=== PATIENT | female | born 1985 | race American Indian/Alaskan Native ===

== ENCOUNTER 2016-12-20 21:07 | Inpatient (IN) | payer OTHER ==
[2016-12-20] MEDS ORDERED: LACTATED RINGERS 500 ML IV ONE (21:10)
[2016-12-20] MEDS ORDERED: LACTATED RINGERS 1,000 ML ONE ×2 (21:22→23:49)
[2016-12-20] MEDS: BRETHINE SUB-Q SCH ×2 (22:30→22:58)
[2016-12-21] MEDS ORDERED: LACTATED RINGERS 1,000 ML ONE (06:39)
[2016-12-21] MEDS ORDERED: LACTATED RINGERS 1,000 ML IV SCH (07:00)
--- NOTE | 2016-12-21 07:47 | Ultrasound Report ---
BIOPHYSICAL PROFILE: History: well-being. Technique: Transabdominal ultrasound with Doppler interrogation. 2 - breathing movements 2 - movements 2 - posture and tone 2 - Qualitative amniotic fluid volume 8 - TOTAL SCORE OF POSSIBLE 8 Heart Rate (bpm) 152
--- NOTE | 2016-12-21 07:48 | Ultrasound Report ---
OB LIMITED History: well-being, evaluate amniotic fluid Technique: Transabdominal ultrasound with Doppler interrogation. Gestation: Single Amniotic Fluid: Normal GABY = 16.8 cm Heart Rate: 152 BPM
[2016-12-21] MEDS ORDERED: MAGNESIUM SULFATE 40GM/1000ML 40 GM/1,000 ML BAG IV ONE (10:27)
[2016-12-21] MEDS ORDERED: POLYCILLIN/NS 2 GM/100 ML 2 GM/100 ML BAG IV ONE ×2 (10:27→11:00)
[2016-12-21] MEDS ORDERED: MAGNESIUM SULFATE 4GM/100ML 4 GM/100 ML BAG IV ONE ×2 (10:27→11:00)
[2016-12-21] MEDS ORDERED: BICITRA ONE (10:38)
[2016-12-21] MEDS ORDERED: PITOCin/NS 20 UNIT/1000ML DRIP 20,000 MILLIUNITS/1,000 ML BAG IV ONE (10:38)
[2016-12-21] MEDS ORDERED: REGLAN ONE (10:38)
--- NOTE | 2016-12-21 10:38 | History and Physical Report ---
History of Present Illness Date of examination: 12/21/16 Date of admission: 12/20/16 23:52 Chief complaint: Painful contractions History of present illness: Assumed care of above. She is a 31-year-old at 31+3 weeks who presents with above complaints and issues, she is a [facility] patient. Patient with painful contractions since last night. Her fibronectin is positive and and cervical length is 0.35 cm She has Funic presentation Past History Past Medical History: no pertinent history Past Surgical History: no surgical history [employer] History: denies: chlamydia, gonorrhea, hepatitis B, hepatitis C, herpes, HIV , syphilis, trichomonas Social history: , full code. denies: smoking, alcohol abuse, prescription drug abuse, IV drug use - Obstetrical History Expected Date of Delivery: 12/21/16 Actual Gestation: 40 Week(s) 0 Day(s) : 1 Para: 0 Medications and Allergies Allergies Allergy/AdvReac Type Severity Reaction Status Date / Time No Known Allergies Allergy Unverified 12/20/16 21:10 Home Medications Medication Instructions Recorded Confirmed Last Taken Type Ibuprofen [Motrin 600 MG tab] 600 mg PO Q8H PRN #30 tablet 12/21/16 Unknown Rx Multivitamin with Iron 1 each PO DAILY #30 tablet 12/21/16 Unknown Rx [Multivitamins with Iron] oxyCODONE /ACETAMINOPHEN [Percocet 1 tab PO Q6HR PRN #30 tablet 12/21/16 Unknown Rx 5/325] Active Meds: Active Medications Acetaminophen (Tylenol) 650 mg PO Q4H PRN PRN Reason: Pain MILD(1-3)/Fever >100.5/ARANGO Betamethasone Acet/Betameth SodPhos (Celestone Soluspan) 12 mg IM Q24HR FELICITA Docusate Sodium (Colace) 100 mg PO Q12H PRN PRN Reason: Constipation Lactated Ringer's (Lactated Ringers) 1,000 mls @ 125 mls/hr IV DIRECT FELICITA Ampicillin Sodium (Polycillin/Ns 2 Gm/100 Ml) 100 mls @ 100 mls/hr IV ONCE ONE PRN Reason: Protocol Stop: 12/21/16 11:28 Ampicillin Sodium (Polycillin/Ns 1 Gm/50 Ml) 50 mls @ 100 mls/hr IV Q4HR FELICITA PRN Reason: Protocol Ondansetron HCl (Zofran) 4 mg IV Q6H PRN PRN Reason: Nausea And Vomiting Sodium Chloride (Sodium Chloride Flush Syringe 10 Ml) 10 ml IV PRN PRN PRN Reason: LINE FLUSH Terbutaline Sulfate (Brethine) 0.25 mg SUB-Q Q20MIN FELICITA Stop: 12/22/16 22:01 Last Admin: 12/20/16 22:58 Dose: 0.25 mg Review of Systems Constitutional: no fever, no chills Cardiovascular: no orthopnea, no edema, no syncope, no lightheadedness, no shortness of breath, no dyspnea on exertion Respiratory: no hemoptysis, no shortness of breath, no dyspnea on exertion Gastrointestinal: abdominal pain (ainful contractions) - Vital Signs Vital signs: Vital Signs Temp 98.0 F 12/20/16 21:30 Temp Pulse Resp BP Pulse Ox 97 F L 95 H 16 115/56 98 12/21/16 07:20 12/21/16 07:24 12/21/16 07:20 12/21/16 07:24 12/21/16 06:01 - Obstetrical Cervical Dilatation: 5 (Per RN exam) Results Result Diagrams: 12/21/16 10:30 All other labs normal. Assessment and Plan 31 y/o at 31 wks with funic presentation -5 cm dilated P: -Proceed to the OR now for emergency -Patient has been consented - Patient Problems (1) 31 weeks gestation of Current Visit: Yes Status: Acute (2) Funic presentation Current Visit: Yes Status: Acute Qualifiers: Fetus number: F (3) Active labor Current Visit: Yes Status: Acute
--- NOTE | 2016-12-21 10:38 | Admit Criteria Form ---
Admission Criteria Documentation: LABOR, THREATENED Clinical Indications for Admission to Inpatient Care (Place 'X' for any and all applicable criteria): Admission is indicated for ANY ONE of the following 1,2,3: [ ]I. Chorioamnionitis [ ]II. Significant vaginal bleeding or any vaginal bleeding with known placental previa or vasa previa 5,8 [ ]III. Serious maternal, infection or comorbidity (eg, pyelonephritis, pneumonia) as cause [ ]IV. Delivery [ ]V. distress or demise [ X]. labor and positive fibronectin(fFN) assay (9) [ ]VII. Condition requiring premature delivery (eg, premature rupture of membranes) 4,5 [ ]VIII. Inpatient admission required rather than observation care (Also use Labor, Threatened: Observation Care Criteria as appropriate) because of ANY ONE of the following: [ ]a) Continued monitoring that requires inpatient care [ ]b) Tocolytic therapy needed that requires inpatient care [ ]c) Complications of tocolytic treatment (eg, pulmonary edema, hypotension) that are severe or persistent (9) Extended stay beyond goal length of stay may be needed for (1)(2) [ ]a) Significant infection (eg, chorioamnionitis)(29) [ ]b) Continued uterine contractions [ ]c) demise [ ]d) Continued vaginal bleeding or placental abnormality [ ]e) Complications of tocolytic treatment (eg, pulmonary edema, hypotension)( 15) [ ]f) Multiple gestation(33) [ ]g) Other condition (eg, severe maternal disease, premature delivery) requiring continued inpatient care The original [employer] content created by [employer] has been revised. The portions of the content which have been revised are identified through the use of italic text or in bold, and [facility] has neither reviewed nor approved the modified material. All other unmodified content is copyright [employer] [facility]. Please see references footnoted in the original [employer] [facility] edition 2016 Admission Criteria Met: Yes
[2016-12-21] MEDS ORDERED: PEPCID IV ONE (10:39)
[2016-12-21] MEDS ORDERED: DIPRIVAN 10 MG/ML IV ONE (10:42)
[2016-12-21] MEDS ORDERED: QUELICIN ONE (10:42)
[2016-12-21] MEDS ORDERED: DILAUDID ONE ×2 (10:42→12:14)
[2016-12-21] MEDS ORDERED: TYLENOL PO PRN (11:00)
[2016-12-21] MEDS ORDERED: COLACE PO PRN (11:00)
[2016-12-21] MEDS ORDERED: CELESTONE SOLUSPAN IM SCH (11:00)
[2016-12-21] MEDS ORDERED: SODIUM CHLORIDE FLUSH SYRINGE 10 ML IV PRN ×2 (11:00→13:00)
[2016-12-21] MEDS ORDERED: ZOFRAN IV PRN (11:00)
[2016-12-21 11:02] LABS: Basophils % (Auto) 0.4 % (0.0-1.8); Eosinophils % (Auto) 1.3 % (0.0-4.3); Hematocrit 31.7 % (30.3-42.9); Mean Corpuscular HGB Conc 32 % (30-34); Mean Corpuscular Hemoglobin 25 pg (28-32); Mean Corpuscular Volume 78 fl (79-97); Platelet Count 226 K/mm3 (140-440); Red Blood Count 4.04 M/mm3 (3.65-5.03); Red Cell Distribution Width 14.6 % (13.2-15.2); White Blood Count 13.7 K/mm3 (4.5-11.0)
[2016-12-21] MEDS ORDERED: NACL 0.9% IR ONE (11:05)
[2016-12-21] MEDS ORDERED: ANCEF IV ONE (11:05)
[2016-12-21] MEDS ORDERED: WATER FOR IRRIG STERILE IR ONE (11:05)
[2016-12-21] MEDS ORDERED: ANCEF/STERILE WATER 2 GM/20 ML IV ONE (11:10)
[2016-12-21] MEDS ORDERED: NACL 0.9% 500 ML 500 ML IV ONE (11:16)
[2016-12-21] MEDS ORDERED: ZEMURON IV ONE (11:28)
[2016-12-21] MEDS ORDERED: ZOFRAN ONE (11:29)
[2016-12-21] MEDS ORDERED: MAGNESIUM SULFATE 40GM/1000ML 40 GM/1,000 ML BAG IV SCH (11:30)
[2016-12-21] MEDS ORDERED: BLOXIVERZ ONE (11:44)
[2016-12-21] MEDS ORDERED: ROBINUL ONE (11:44)
--- NOTE | 2016-12-21 12:11 | Operative Report ---
Operative Report Operative Report: DATE: 12/21/2016 PREOPERATIVE DIAGNOSIS: 31-year-old at 31+3 weeks gestation, Funic presentation, Active labor (5 cm dilated) POSTOP DIAGNOSIS: Same NAME OF PROCEDURE: Emergency Primary low transverse section SURGEON: LUIS ALBERTO PARKINSON MD FINAL [employer]IG[employer]OX EXAMINER: [] ANESTHESIA: General EBL: 800 mL PATHOLOGY SPECIMEN: Placenta URINE OUTPUT: 200 mL FINDINGS: Male infant in cephalic presentation, obvious loops of cord in front of presenting part covering the cervix, infant was 11:16 AM, weight was 4 lbs. 5 oz. or 1945 g, Apgars 8 and 9, normal uterus tubes and ovaries bilaterally DESCRIPTION OF PROCEDURE: After informed consent, patient was taken to the operating room where she was prepped and draped in a sterile fashion. Pfannestial incision was performed 2 cm above the pubic symphysis. This was then carried down to the underlying rectus fascia which was scored in the midline. The fascial incision was extended laterally with the use of Romano scissors, anterior and posterior leafs of the fascia were then grasped manually and dissected bluntly off the underlying rectus. The rectus was in the midline and the peritoneal cavity was entered without difficulty. After good visualization of the bladder the peritoneal layer was extended up and down ; bladder blade was placed in the patient's pelvic cavity. A hysterotomy incision was then performed with clear amniotic fluid noted. in cephalic presentation was delivered without difficulty in the usual manner; cord was clamped cut and was handed over to waiting NICU staff. The placenta was then delivered intact, the uterus was then exteriorized cleared of all clots and debris. Her hysterotomy incision was then closed in a running locked fashion with 0 Vicryl on a CTX; using the same suture were able to imbricate the initial layer. The uterus was then returned to the patient's pelvic cavity ; the peritoneal edges were grasped with hemostats and Susie's; irrigation was used to clear the gutters of all clots and debris. Tisseel hemostatic agent was applied copiously over the hysterotomy incision. The peritoneal layer was closed in a running fashion with 3-0 Vicryl; the rectus was reapproximated with a single [id number] stitch. The fascia was then closed in a running fashion with 0 Vicryl; the subcutaneous layer was reapproximated with a single [id number] stitch. The skin was then closed in a subcuticular manner with 4-0 Monocryl. She tolerated the procedure well lap and instrument counts were correct 2, she did receive 2 grams of Ancef prior to the procedure. She is transferred to PACU in stable condition.
[2016-12-21] MEDS ORDERED: NARCAN 0.4 MG/1 ML IV PRN ×2 (12:13)
[2016-12-21] MEDS ORDERED: MYLICON PO PRN (12:13)
[2016-12-21] MEDS ORDERED: ANUCORT-HC PR PRN (12:13)
[2016-12-21] MEDS ORDERED: MILK OF MAGNESIA PO PRN (12:13)
[2016-12-21] MEDS ORDERED: LANSINOH TP PRN (12:13)
[2016-12-21] MEDS ORDERED: DILAUDID IV PRN (12:26)
--- NOTE | 2016-12-21 12:26 | Anesthesia Day of Surgery ---
Anesthesia Day of Surgery - Day of Surgery Patient Examined: Yes Patient H&P Reviewed: Yes Patient is NPO: No
--- NOTE | 2016-12-21 12:28 | Post Anesthesia Evaluation ---
- Post Anesthesia Evaluation Patient Participated: Yes Airway Patent: Yes Stable Respiratory Function: Yes Nausea/Vomiting: No Temp > 96.8F: Yes Pain Manageable: Yes Adequeate Hydration: Yes Anesthesia Complications: No Block Receding Appropriately: Not Applicable Patient on Ventilator: No
--- NOTE | 2016-12-21 12:28 | Anesthesia Consultation ---
Anesthesia Consult and Med Hx - Airway Anesthetic Teeth Evaluation: Good ROM Head & Neck: Adequate Mental/Hyoid Distance: Adequate Mallampati Class: Class II Intubation Access Assessment: Probably Good - Pulmonary Exam CTA: Yes - Cardiac Exam Cardiac Exam: RRR - Pre-Operative Health Status Proposed Anesthetic Plan: General (cord presentation - urgent need for ) - Pulmonary Hx Asthma: No COPD: No Hx Pneumonia: No - Cardiovascular System Hx Hypertension: No - Central Nervous System Hx Seizures: No Hx Psychiatric Problems: No - Endocrine Hx Renal Disease: No Hx End Stage Renal Disease: No Hx Hypothyroidism: No Hx Hyperthyroidism: No - Hematic Hx Anemia: No Hx Sickle Cell Disease: No - Other Systems Hx Alcohol Use: No Hx Obesity: Yes
[2016-12-21] MEDS: MORPHINE PCA 30MG/30ML IV SCH ×2 (12:53→21:28)
[2016-12-21] MEDS ORDERED: TORADOL IV PRN (13:30)
[2016-12-21] MEDS ORDERED: PITOCin/NS 20 UNIT/1000ML DRIP 20 UNIT/1,000 ML BAG IV SCH ×2 (13:30→18:00)
[2016-12-21] MEDS ORDERED: TUCKS PAD TP PRN (13:30)
--- NOTE | 2016-12-21 13:46 | Ultrasound Report ---
ULTRASOUND OB LIMITED ULTRASOUND OB TRANSVAGINAL Technique: Transabdominal ultrasound with Doppler interrogation. Gestation: Single Position: Cephalic Heart Rate: 151 BPM Cervical length: 0.4 cm (Normal > 3 cm)
[2016-12-21] MEDS ORDERED: POLYCILLIN/NS 1 GM/50 ML 1 GM/50 ML BAG IV SCH (15:00)
[2016-12-21] MEDS ORDERED: D5LR 1,000 ML IV SCH (18:00)
[2016-12-21] MEDS ORDERED: FLUARIX QUAD 2016-2017(36 MOS+) IM ONE (18:07)
[2016-12-21] MEDS ORDERED: SENOKOT PO PRN (22:00)
[2016-12-22 02:00] LABS: Hematocrit 29.1 % (30.3-42.9); Hemoglobin 9.2 gm/dl (10.1-14.3)
[2016-12-22] MEDS ORDERED: BOOSTRIX IM ONE (06:00)
--- NOTE | 2016-12-22 08:26 | Progress Note ---
Assessment and Plan POD # 1 s/p Primary LTCS -Doing well P: -Continue routine postop care -Anticipate discharge in 24-48 hours - Patient Problems (1) Status post primary low transverse section Current Visit: Yes Status: Acute (2) 31 weeks gestation of Current Visit: Yes Status: Acute (3) Funic presentation Current Visit: Yes Status: Acute Qualifiers: Fetus number: F (4) Active labor Current Visit: Yes Status: Acute Subjective - Subjective Date of service: 12/22/16 Principal diagnosis: POD # 1, IUP at ~ 31 wks Interval history: Patient seen and examined, stable overnight no issues. She has adequate bowel bladder function, ambulating, pain appears well controlled, no fever or chills. Eager to go see baby in NICU Patient reports: appetite normal, voiding normally, pain well controlled, no dizzy ambulation, no nauseated [place]: in NICU Objective - Vital Signs Latest vital signs: Vital Signs Temp Pulse Pulse Resp BP BP Pulse Ox 12/22/16 06:13 18 12/22/16 04:30 99.3 F 97 H 20 110/56 12/22/16 04:10 18 12/22/16 02:05 18 12/22/16 00:40 99.4 F 97 H 20 110/59 12/21/16 23:58 18 12/21/16 22:10 18 12/21/16 20:40 99.3 F 86 20 115/60 12/21/16 20:16 18 12/21/16 18:34 18 12/21/16 16:35 18 12/21/16 14:50 98.5 F 84 20 134/72 12/21/16 13:53 20 12/21/16 13:14 79 22 117/65 94 12/21/16 12:55 87 20 137/84 95 12/21/16 12:40 98.8 F 77 24 134/75 97 12/21/16 12:25 69 20 132/75 97 12/21/16 12:20 71 20 132/69 95 12/21/16 12:15 98.6 F 80 20 123/62 92 12/21/16 10:57 94 H 100 12/21/16 10:52 109 H 100 Intake and Output 12/21/16 12/22/16 12/22/16 22:59 06:59 14:59 Intake Total 1281 990 Output Total 400 1100 Balance 881 -110 Intake: IV 921 750 D5lr 1,000 ml @ 125 mls/ 750 hr IV DIRECT FELICITA Rx#: [id number] PITOCin/NS 20 UNIT/1000ML 573 DRIP 20 unit In 1,000 ml @ 125 mls/hr IV DIRECT FELICITA Rx#:[id number] PITOCin/NS 20 UNIT/1000ML 348 DRIP 20 unit In 1,000 ml @ 250 mls/hr IV TITR FELICITA Rx#:[id number] Oral 360 240 Output: Urine 400 1100 Indwelling Catheter 1100 Void 400 Other: Total, Intake Amount 120 120 Total, Output Amount 400 600 - Exam Abdomen: Present: normal appearance, soft. Absent: tenderness, guarding, rigidity Uterus: Present: fundal height below umbilicus. Absent: tenderness Extremities: Present: normal Incision: Present: dressed - Labs Labs: Abnormal lab results 12/21/16 12/21/16 12/22/16 Range/Units 10:30 10:30 01:34 WBC 13.7 H (4.5-11.0) K/mm3 Hgb 10.0 L 9.2 L (10.1-14.3) gm/dl Hct 29.1 L (30.3-42.9) % MCV 78 L (79-97) fl MCH 25 L (28-32) pg Lymph % (Auto) 9.5 L (13.4-35.0) % Bennett % (Auto) 8.9 H (0.0-7.3) % Bennett # 1.2 H (0.0-0.8) K/mm3 Seg Neutrophils % 79.9 H (40.0-70.0) % Seg Neutrophils # 10.9 H (1.8-7.7) K/mm3 Crossmatch See Detail
[2016-12-22] MEDS: PERCOCET 5/325 PO PRN ×3 (08:58→23:32)
[2016-12-22] MEDS: MOTRIN PO PRN ×3 (08:58→23:33)
[2016-12-22] MEDS: PRENATAL VITAMIN PO SCH (10:08)
[2016-12-22] MEDS: FEOSOL PO SCH (10:08)
[2016-12-22] MEDS ORDERED: FLUARIX QUAD 2016-2017(36 MOS+) IM ONE (12:00)
[2016-12-22] MEDS ORDERED: M-M-R II VACCINE SUB-Q ONE (12:13)
--- NOTE | 2016-12-22 15:39 | Progress Note ---
Subjective Date of service: 12/22/16 Principal diagnosis: POD # 1, IUP at ~ 31 wks Interval history: Patient is s/p c/section under spinal, POD #1. Patient ambulating without difficulty. Pain well controlled. Patient denies anesthesia complications. Objective - Constitutional Vitals: Vital Signs - 12hr 12/22/16 12/22/16 12/22/16 04:10 04:30 06:13 Temperature 99.3 F Pulse Rate [ 97 H From Monitor] Respiratory 18 20 18 Rate Blood Pressure 110/56 [Right Arm] 12/22/16 12/22/16 12/22/16 07:50 09:00 09:31 Temperature 99 F Pulse Rate [ 96 H From Monitor] Respiratory 18 18 20 Rate Blood Pressure 128/83 [Right Arm] - Labs CBC & Chem 7: 12/22/16 01:34 Labs: Abnormal lab results 12/22/16 Range/Units 01:34 Hgb 9.2 L (10.1-14.3) gm/dl Hct 29.1 L (30.3-42.9) %
[2016-12-23] MEDS: PERCOCET 5/325 PO PRN ×3 (07:16→22:27)
[2016-12-23] MEDS: MOTRIN PO PRN ×3 (07:17→22:27)
--- NOTE | 2016-12-23 08:20 | Progress Note ---
Assessment and Plan POD # 2 s/p Primary LTCS -Doing well P: -Continue routine postop care -Anticipate discharge in 24-48 hours - Patient Problems (1) Status post primary low transverse section Current Visit: Yes Status: Acute (2) 31 weeks gestation of Current Visit: Yes Status: Acute (3) Funic presentation Current Visit: Yes Status: Acute Qualifiers: Fetus number: F (4) Active labor Current Visit: Yes Status: Acute Subjective - Subjective Date of service: 12/23/16 Principal diagnosis: POD # 2, IUP at ~ 31 wks Interval history: Patient seen and examined, stable. She has adequate bowel bladder function, ambulating, pain appears well controlled, no fever or chills. Patient reports: appetite normal, voiding normally, pain well controlled, flatus , bowel movement, ambulating normally, no dizzy ambulation Hydro: in NICU Objective - Vital Signs Latest vital signs: Vital Signs Temp Pulse Resp BP 12/23/16 07:17 18 12/23/16 07:16 18 12/23/16 00:35 98.9 F 75 20 116/60 12/22/16 23:33 18 12/22/16 23:32 18 12/22/16 15:43 98.3 F 90 20 110/59 12/22/16 09:31 99 F 96 H 20 128/83 12/22/16 09:00 18 Intake and Output 12/22/16 12/23/16 12/23/16 22:59 06:59 14:59 Intake Total 240 240 Output Total 1600 Balance -1360 240 Intake: Oral 240 240 Output: Urine 1600 Void 1600 Other: Total, Intake Amount 120 240 Total, Output Amount 900 # Voids Void 1 - Exam Abdomen: Present: normal appearance, soft. Absent: distention, tenderness, guarding, rigidity Uterus: Present: firm, fundal height below umbilicus Extremities: Present: normal Incision: Present: dry, intact
[2016-12-23] MEDS: FEOSOL PO SCH (09:23)
[2016-12-23] MEDS: PRENATAL VITAMIN PO SCH (09:23)
[2016-12-24] MEDS: MOTRIN PO PRN ×2 (05:39→12:19)
[2016-12-24] MEDS: PERCOCET 5/325 PO PRN ×2 (05:40→12:21)
--- NOTE | 2016-12-24 10:38 | Progress Note ---
Assessment and Plan - Patient Problems (1) Status post primary low transverse section Onset Date: 12/24/16 Current Visit: Yes Status: Resolved Plan to address problem: A: S/P LTCS - POD #3 Doing well P: May go home today Subjective - Subjective Date of service: 12/24/16 Principal diagnosis: POD #3 Interval history: Pt is feeling well except incisional pains. She is tolerating a reg diet without nausea or vomiting, ambulating and voiding without difficulty. Patient reports: appetite normal, voiding normally, pain well controlled, flatus , ambulating normally : doing well, in NICU Objective - Vital Signs Latest vital signs: Vital Signs Temp Pulse Resp BP 12/24/16 00:15 98.7 F 67 20 115/64 12/23/16 16:20 98.2 F 70 20 111/67 Intake and Output 12/23/16 12/24/16 12/24/16 22:59 06:59 14:59 Intake Total 480 360 Balance 480 360 Intake: Oral 240 Intake, Free Water 240 360 Other: Total, Intake Amount 240 # Voids Void 1 1 - Exam Breasts: Present: deferred Cardiovascular: Present: Regular rate Abdomen: Present: normal appearance, soft Uterus: Present: normal, firm, fundal height below umbilicus Extremities: Present: normal Incision: Present: normal, dry, intact
--- NOTE | 2016-12-24 12:21 | Discharge Summary ---
Providers - Providers Date of Admission: 12/20/16 23:52 Date of discharge: 12/24/16 Attending physician: YANY MELARA Primary care physician: YANY MELARA Hospitalization Reason for admission: active labor, IUP - Delivery: Procedure: section, primary low transverse Incision: normal, dry, intact Other procedures: none complications: none Discharge diagnosis: delivery baby: male Hospital course: Pt is a 31-year-old BF at 31+3 weeks who presented to [facility] with complaints of painful contractions. Her fibronectin is positive and cervical length was 0.35 cm and she was dilated 5cms. U/S showed a Funic presentation, thus she was scheduled for a C Section. She tolerated the procedure well, and post operative course was unremarkable. By POD #3 she was tolerating a reg diet without nausea or vomiting, ambulating and voiding without difficulty. She was therefore discharged to home on POD #3 in stable condition. Condition at discharge: Good Disposition: DISCHARGED TO HOME OR SELFCARE - Discharge Diagnoses (1) Status post primary low transverse section Status: Resolved Plan - Discharge Medications Prescriptions: Ibuprofen [Motrin 600 MG tab] 600 mg PO Q8H PRN #30 tablet PRN Reason: Pain Multivitamin with Iron [Multivitamins with Iron] 1 each PO DAILY #30 tablet oxyCODONE /ACETAMINOPHEN [Percocet 5/325] 1 tab PO Q6HR PRN #30 tablet PRN Reason: Pain - Provider Discharge Summary Activity: routine, no sex for 6 weeks, no heavy lifting 4 weeks, no strenuous exercise Diet: routine Instructions: routine Additional instructions: [] Smoking cessation referral if applicable(refer to patient education folder for contact #) [] Refer to [facility] Booklet Call your doctor immediately for: * Fever > 100.5 * Heavy vaginal bleeding ( >1 pad per hour) * Severe persistent headache * Shortness of breath * Reddened, hot, painful area to leg or breast * Drainage or odor from incision. * Keep incision clean and dry at all times and follow doctor's instructions regarding bathing/showering - Follow up plan Follow up: YANY MELARA MD [Primary Care Provider] - 14 Days
[2016-12-24] MEDS: FEOSOL PO SCH (12:25)
[2016-12-24] MEDS: PRENATAL VITAMIN PO SCH (12:25)
[2016-12-24] MEDS ORDERED: FLUARIX QUAD 2016-2017(36 MOS+) IM ONE (16:45)
[2016-12-24 19:42] VITALS: BP 109/66
== END 2016-12-24 17:00 | disposition home or self-care (01) | DRG 765 ==
LOC: TRG 21:07 → INTOOBSV 23:52 → LD 23:52 → OBSVTOIN 23:52 → TRG 23:52 → UNDOADMOB 23:52 → APU 12-21 11:14 → LD 12-21 11:14 → OB 12-21 14:29
PROVIDERS: ADMIT Obstetrics & Gynecology; ATTEND Obstetrics & Gynecology
PROC: 10D00Z1 Extraction of Products of Conception, Low, Open Approach (ICD-10-PCS; principal; 2016-12-21)
DX: O69.0XX0 Labor and delivery complicated by prolapse of cord, not applicable or unspecified (principal); O60.14X0 Preterm labor third trimester with preterm delivery third trimester, not applicable or unspecified; Z3A.31 31 weeks gestation of pregnancy; Z37.0 Single live birth; Z23 Encounter for immunization
CPT/HCPCS: 36415; 76815; 76817; 76819; 82731; 85014; 85018; 85025; 86850; 86900; 86901; 86920; 88307; 90471; 90686; 90715; 99211; A6250; C9250; G0008; G0463; J0290; J0330; J0690; J0702; J1170; J2270; J2405; J2590; J2704; J2710; J2765; J3105; J3475; J7120; J7121

== ENCOUNTER 2018-01-18 11:05 | Inpatient (IN) | payer MEDICAID, OTHER ==
[2018-01-18] MEDS ORDERED: NACL 0.9% 1000 ML IV ONE (12:53)
--- NOTE | 2018-01-18 13:23 | Ultrasound Report ---
OB ULTRASOUND History premature rupture of membranes. Technique: Transabdominal ultrasound with Doppler interrogation. Gestation: Single Position: Cephalic Amniotic Fluid: Normal GABY = 9.9 cm Placenta: Anterior Placental Grade: 0 Heart Rate: 159 BPM Cervical length: 2.3 cm (Normal > 3 cm) BPD: 5.4 cm = 22 w 3 d HC: 19.7 cm = 21 w 6 d AC: 18.5 cm = 23 w 2 d FL: 3.6 cm = 21 w 3 d HC/AC Ratio: 1.06 Cephalic Index: 33.9 Estimated Weight: 503 grams Clinical age = 23 w 1 d EDC: 05/16/18 US Gest. Age = 22 w 2 d EDC: 05/22/18 Comment: There appears to be a mild degree of fluid and the vaginal canal. IMPRESSION: Viable, single intrauterine as described.
[2018-01-18] MEDS ORDERED: NORMOSOL-R PH 7.4 1,000 ML IV ONE (13:35)
[2018-01-18] MEDS ORDERED: MAGNESIUM SULFATE 4GM/100ML 4 GM/100 ML BAG IV ONE ×2 (13:36→13:58)
[2018-01-18 13:52] LABS: Basophils # (Auto) 0.1 K/mm3 (0.0-0.1); Basophils % (Auto) 0.7 % (0.0-1.8); Eosinophils # (Auto) 0.2 K/mm3 (0.0-0.4); Hematocrit 35.7 % (30.3-42.9); Hemoglobin 11.7 gm/dl (10.1-14.3); Lymphocytes # (Auto) 1.4 K/mm3 (1.2-5.4); Lymphocytes % (Auto) 17.9 % (13.4-35.0); Mean Corpuscular HGB Conc 33 % (30-34); Mean Corpuscular Volume 78 fl (79-97); Monocytes # (Auto) 0.6 K/mm3 (0.0-0.8); Monocytes % (Auto) 7.2 % (0.0-7.3); Platelet Count 185 K/mm3 (140-440); Red Blood Count 4.58 M/mm3 (3.65-5.03); Red Cell Distribution Width 15.4 % (13.2-15.2)
[2018-01-18 13:54] LABS: Mean Corpuscular Hemoglobin 25 pg (28-32)
--- NOTE | 2018-01-18 14:14 | History and Physical Report ---
History of Present Illness Date of examination: 01/18/18 Date of admission: 01/18/18 11:05 Chief complaint: SROM History of present illness: Pt is a 32yo BF EDC 05/26/18; EGA 21 5/7 weeks presents to [facility] complaining of SROM clear fluid @ 1030. She denies bleeding or contractions. She received care at [facility] since 10 weeks, and course has been complicated by a previous delivery @ 31 weeks by C Section and Asthma for which she see's [facility]. records are available. Past History Past Medical History: asthma Past Surgical History: section Social history: no significant social history, - Obstetrical History Expected Date of Delivery: 05/26/18 Actual Gestation: 21 Week(s) 5 Day(s) : 2 Medications and Allergies Allergies Allergy/AdvReac Type Severity Reaction Status Date / Time No Known Allergies Allergy Verified 01/18/18 11:11 Home Medications Medication Instructions Recorded Confirmed Last Taken Type Ibuprofen [Motrin 600 MG tab] 600 mg PO Q8H PRN #30 tablet 12/21/16 Unknown Rx Multivitamin with Iron 1 each PO DAILY #30 tablet 12/21/16 Unknown Rx [Multivitamins with Iron] Vit-Fe Fumar-FA [ 1 tab PO QDAY 12/21/16 12/21/16 Unknown History Vitamin] oxyCODONE /ACETAMINOPHEN [Percocet 1 tab PO Q6HR PRN #30 tablet 12/21/16 Unknown Rx 5/325] Active Meds: Active Medications Magnesium Sulfate (Magnesium Sulfate 40gm/1000ml) 40 gm in 1,000 mls @ 50 mls/ hr IV DIRECT FELICITA Magnesium Sulfate (Magnesium Sulfate 4gm/100ml) 4 gm in 100 mls @ 300 mls/hr IV ONCE ONE Stop: 01/18/18 14:17 Review of Systems All systems: negative - Vital Signs Vital signs: Vital Signs Pulse BP Pulse Ox 100 H 122/68 98 01/18/18 11:16 01/18/18 11:16 01/18/18 11:16 Temp Pulse Resp BP Pulse Ox 98.2 F 100 H 18 122/68 98 01/18/18 11:30 01/18/18 11:16 01/18/18 11:30 01/18/18 11:16 01/18/18 11:16 - Physical Exam Breasts: Positive: deferred Cardiovascular: Regular rate Lungs: Positive: Clear to auscultation Abdomen: Positive: normal appearance, soft Genitourinary (Female): Positive: normal external genitalia Uterus: Positive: enlarged Extremities: Positive: normal - Obstetrical FHR: category 1 Uterine Contraction Monitor Mode: External Uterine Contraction Pattern: Absent Results Result Diagrams: 01/18/18 11:40 Abnormal lab results 01/18/18 Range/Units 11:40 MCV 78 L (79-97) fl MCH 25 L (28-32) pg RDW 15.4 H (13.2-15.2) % Seg Neutrophils % 72.2 H (40.0-70.0) % All other labs normal. Ultrasound: report reviewed (Andrew, cephalic, GABY 9.9cm, EFW 503gms; Cervical length 2.3cm, Gestational age 22 2/7 weeks) Assessment and Plan - Patient Problems (1) 21 weeks gestation of Onset Date: 01/18/18 Current Visit: Yes Status: Acute Plan to address problem: A: IUP @ 21 5/7 weeks PPROM - currently stable Previous C Section History of Previous delivery P: Admit to L&D for IV hydration, IV tocolysis, IV antibiotics Obtain [facility] consultation (2) premature rupture of membranes (PPROM) with onset of labor after 24 hours of rupture in second trimester, antepartum Onset Date: 01/18/18 Current Visit: Yes Status: Acute (3) Previous delivery affecting , antepartum Onset Date: 01/18/18 Current Visit: Yes Status: Acute
[2018-01-18] MEDS ORDERED: MYLICON PO PRN (14:27)
[2018-01-18] MEDS ORDERED: SENOKOT S PO PRN (14:27)
[2018-01-18] MEDS ORDERED: TYLENOL PO PRN (14:27)
[2018-01-18] MEDS ORDERED: MILK OF MAGNESIA PO PRN (14:27)
[2018-01-18] MEDS ORDERED: ZOFRAN IV PRN (14:27)
[2018-01-18] MEDS: MAGNESIUM SULFATE 40GM/1000ML 40 GM/1,000 ML BAG IV SCH (14:30)
[2018-01-18 15:00] LABS: Alanine Aminotransferase 13 units/L (7-56); Albumin 4.3 g/dL (3.9-5); BUN/Creatinine Ratio 18; Blood Urea Nitrogen 7 mg/dL (7-17); Calcium 9.1 mg/dL (8.4-10.2); Hemolysis Index 26
[2018-01-18] MEDS: POLYCILLIN/NS 2 GM/100 ML 2 GM/100 ML BAG IV SCH ×2 (15:00→21:26)
--- NOTE | 2018-01-18 17:53 | Consultation ---
History of Present Illness Consult date: 01/18/18 Requesting physician: YANY MELARA Reason for consult: PROM History of present illness: This is a 32 year old para 1011 at 22 weeks gestation (based on an SHANTELL of ) for whom I recently provided a perinatology consultation for evaluation of previable PPROM. CURRENT PRESENTATION: Patient states that she had fluid leakage earlier today at 10 AM. The patient indicates she DENIES episodes of vaginal bleeding or low abdominal pain but she continues to have leakage and vaginal discharge.. Patients last ultrasound at [facility] showed: 9 cm. Patient DENIES vaginal bleeding or discharge but does admit to intermittent leakage of fluid. PAST OBSTETRICAL HISTORY VTOP x 1 2017: CS at term. BW: 4 pounds 1 oz. FHR TRACING: Consistent EGA. No variable decelerations. ADMISSION LABS: See notes in chart. Past History Past Medical History: asthma Past Surgical History: section - Obstetrical History : 2 Medications and Allergies Allergies Allergy/AdvReac Type Severity Reaction Status Date / Time No Known Allergies Allergy Verified 01/18/18 11:11 Home Medications Medication Instructions Recorded Confirmed Last Taken Type Ibuprofen [Motrin 600 MG tab] 600 mg PO Q8H PRN #30 tablet 12/21/16 Unknown Rx Multivitamin with Iron 1 each PO DAILY #30 tablet 12/21/16 Unknown Rx [Multivitamins with Iron] Vit-Fe Fumar-FA [ 1 tab PO QDAY 12/21/16 12/21/16 Unknown History Vitamin] oxyCODONE /ACETAMINOPHEN [Percocet 1 tab PO Q6HR PRN #30 tablet 12/21/16 Unknown Rx 5/325] Active Meds: Active Medications Acetaminophen (Tylenol) 650 mg PO Q4H PRN PRN Reason: Pain MILD(1-3)/Fever >100.5/ARANGO Amoxicillin (Trimox) 250 mg PO Q8HR FELICITA; Protocol Stop: 01/25/18 14:28 Docusate Sodium (Colace) 100 mg PO Q12H PRN PRN Reason: Constipation Magnesium Sulfate (Magnesium Sulfate 40gm/1000ml) 40 gm in 1,000 mls @ 50 mls/ hr IV DIRECT FELICITA Last Admin: 01/18/18 14:30 Dose: 2 gm/hr, 50 mls/hr Ampicillin Sodium (Polycillin/Ns 2 Gm/100 Ml) 2 gm in 100 mls @ 100 mls/hr IV Q6HR FELICITA; Protocol Stop: 01/20/18 06:59 Last Admin: 01/18/18 15:00 Dose: 100 mls/hr Parenteral Electrolytes (Normosol-R Ph 7.4) 1,000 mls @ 125 mls/hr IV DIRECT FELICITA Magnesium Hydroxide (Milk Of Magnesia) 30 ml PO QHS PRN PRN Reason: Laxative Effect Multivitamins/Iron/Calcium ( Vitamin) 1 each PO QDAY FELICITA Ondansetron HCl (Zofran) 4 mg IV Q6H PRN PRN Reason: Nausea And Vomiting Senna/Docusate Sodium (Senokot S) 2 tab PO Q12H PRN PRN Reason: Laxative Effect Simethicone (Mylicon) 80 mg PO Q6H PRN PRN Reason: Gas pain - Vital Signs Vital signs: Vital Signs Pulse BP Pulse Ox 100 H 122/68 98 01/18/18 11:16 01/18/18 11:16 01/18/18 11:16 Temp Pulse Resp BP Pulse Ox 97.9 F 95 H 18 116/56 98 01/18/18 17:00 01/18/18 17:48 01/18/18 11:30 01/18/18 17:48 01/18/18 11:16 Results Result Diagrams: 01/18/18 11:40 01/18/18 11:40 Abnormal lab results 01/18/18 01/18/18 Range/Units 11:40 11:40 MCV 78 L (79-97) fl MCH 25 L (28-32) pg RDW 15.4 H (13.2-15.2) % Seg Neutrophils % 72.2 H (40.0-70.0) % Carbon Dioxide 19 L (22-30) mmol/L Creatinine 0.4 L (0.7-1.2) mg/dL All other labs normal. Assessment and Plan ASSESSMENT This is a 32 year old para 0111 at 22 weeks noted to have fluid leakage per vagina most likely due to PPROM. All of the aforementioned findings are suggestive of an impending periviable loss. Currently admitted for expectant management due to periviable PPROM. Normal residual AF on ultrasound Admitted for expectant management. RECOMMENDATIONS: During my discussion with the patient I had the opportunity to discuss the implications of PPROM, and oligohydramnios in early in . I explained that survival after delivery at or less than 23 weeks is limited, and that there is a high likelihood that this would develop chorioamnionitis, demise in utero or progress into labor and deliver well before the 23-24 weeks when meaningful viability is achieved. I also discussed the fact that morbidity and mortality with delivery between 24 to 26 weeks are high. I explained that if labor or clinical infections are present any time after initial evaluation of patients in this clinical scenario, then delivery is absolutely indicated. We generally do not recommend tocolysis in patients with PPROM prior to 24 weeks gestation since the risks of such an intervention outweigh any known benefits. For patients who do not show evidence of infection or labor, there are three options in the management of previable PPROM. These are OPTION 1: Nonintervention and Expectant management (conceivably as an outpatient if the patient desires) OPTION 2: Hospitalization, observation, steroids, tocolysis (as necessary) , antibiotics to prolong latency and aggressive surveillance (this protocol is most well described beyond 23 weeks gestation). OPTION 3: Termination of the . I also explained that for patients who choose expectant management that this is generally done in the hospital beyond the point of viability. PPROM managed as an outpatient entails a high risk for maternal infectious morbidity and demise in utero. RECOMMENDATIONS: 1. Following my counseling, this patient DECLINED the option of termination. 2. I have indicated that, in all likelihood, this patient may benefit from cerclage placement in future pregnancies. 3. We agree with steroids at 22 weeks gestation to enhance lung maturity. 4. We agree with magnesium sulfate for 24 hours for neuroprotection. 5. Repeat ultrasound in 48 hours to determine if residual GABY has changed. 6. At this point we would recommend ultrasound on a weekly basis with possible twice weekly at 28 weeks gestation. 7. FHR tracing q shift. 8. We will obtain ultrasound tomorrow. 9. We would be in agreement with delivery at 34 weeks or as clinically indicated for signs of intolerance of labor. 10. I have indicated that (given the poor outcome for survival) she may consider expectant management of an abnormal FHR tracing in the early part of expectant management. 11. We reviewed the statistics for survival in the articles attached. 12. Please obtain a neonatology consult to discuss periviable PPROM and pulmonary hypoplasia in this clinical scenario. Thank you for allowing us to participate in the care of this patient. We look forward to the opportunity to assist in her continued management. If you have any questions, I may be reached at [phone].
[2018-01-18] MEDS: NORMOSOL-R PH 7.4 1,000 ML IV SCH (21:29)
[2018-01-19] MEDS: NORMOSOL-R PH 7.4 1,000 ML IV SCH ×2 (00:35→17:46)
[2018-01-19] MEDS: AMBIEN PO PRN (01:18)
[2018-01-19] MEDS: POLYCILLIN/NS 2 GM/100 ML 2 GM/100 ML BAG IV SCH ×5 (03:17→23:43)
[2018-01-19 07:03] LABS: Bilirubin,Urine NEG (Negative); Blood,Urine SM (Negative); Color,Urine Yellow (Yellow); Mucus,Urine 1+ /HPF; Protein,Urine <15 mg/dL mg/dL (Negative); Urobilinogen,Urine < 2.0 mg/dL (<2.0)
--- NOTE | 2018-01-19 08:40 | Progress Note ---
Assessment and Plan - Patient Problems (1) 21 weeks gestation of Onset Date: 01/18/18 Current Visit: Yes Status: Acute Plan to address problem: A: IUP @ 21 6/7 weeks PPROM - currently stable Previous C Section History of Previous delivery P: Continue with present management - IV hydration, IV tocolysis, IV antibiotics Appreciate [facility] consultation Repeat GABY today NICU consultation (2) premature rupture of membranes (PPROM) with onset of labor after 24 hours of rupture in second trimester, antepartum Onset Date: 01/18/18 Current Visit: Yes Status: Acute (3) Previous delivery affecting , antepartum Onset Date: 01/18/18 Current Visit: Yes Status: Acute Subjective - Subjective Date of service: 01/19/18 Principal diagnosis: IUP @ 21 6/7 weeks; PPROM Interval history: Pt is a 32yo BF EDC 05/26/18; EGA 21 5/7 weeks presents to [facility] complaining of SROM clear fluid @ 1030 01/18/18. She denies bleeding or contractions. She received care at [facility] since 10 weeks, and course has been complicated by a previous delivery @ 31 weeks by C Section and Asthma for which she see's [facility]. records are available. She was admitted and begun on IV Magnesium sulfate, IM Steroids and IV antibiotics. Today she denies further leaking of fluid, contractions or bleeding. Patient reports: movement normal, no new complaints, no loss of fluid, no vaginal bleeding, no contractions Objective - Vital Signs Vital Signs: Vital Signs - 12hr 01/18/18 01/18/18 01/18/18 21:27 21:32 21:37 Temperature Pulse Rate 87 90 94 H Respiratory Rate Blood Pressure O2 Sat by Pulse 96 98 97 Oximetry 01/18/18 01/18/18 01/18/18 21:42 21:47 21:52 Temperature Pulse Rate 94 H 96 H 93 H Respiratory Rate Blood Pressure O2 Sat by Pulse 97 97 97 Oximetry 01/18/18 01/19/18 01/19/18 21:57 00:35 00:40 Temperature 97.1 F L Pulse Rate 98 H 88 Respiratory 20 Rate Blood Pressure 106/55 O2 Sat by Pulse 97 Oximetry 01/19/18 01/19/18 01/19/18 06:44 07:30 07:44 Temperature 97.6 F Pulse Rate 87 94 H Respiratory 16 Rate Blood Pressure 112/59 115/55 O2 Sat by Pulse Oximetry - Exam Cardiovascular: Regular rate Lungs: Clear to auscultation Abdomen: Present: normal appearance, soft FHR: auscultation normal Uterine Contraction Monitor Mode: External Uterine Contraction Pattern: Absent - Labs Labs: Abnormal Labs 01/18/18 01/18/18 01/18/18 11:40 11:40 20:19 MCV 78 L MCH 25 L RDW 15.4 H Seg Neutrophils % 72.2 H Carbon Dioxide 19 L Creatinine 0.4 L Magnesium 4.30 H 01/19/18 05:15 MCV MCH RDW Seg Neutrophils % Carbon Dioxide Creatinine Magnesium 4.70 H Laboratory Results - last 24 hr 01/18/18 01/18/18 01/18/18 11:40 11:40 11:40 WBC 8.1 RBC 4.58 Hgb 11.7 Hct 35.7 MCV 78 L MCH 25 L MCHC 33 RDW 15.4 H Plt Count 185 Lymph % (Auto) 17.9 Adams % (Auto) 7.2 Eos % (Auto) 2.0 Baso % (Auto) 0.7 Lymph # 1.4 Adams # 0.6 Eos # 0.2 Baso # 0.1 Seg Neutrophils % 72.2 H Seg Neutrophils # 5.8 Sodium 138 Potassium 4.1 Chloride 101.2 Carbon Dioxide 19 L Anion Gap 22 BUN 7 Creatinine 0.4 L Estimated GFR > 60 BUN/Creatinine Ratio 18 Glucose 88 Calcium 9.1 Magnesium Total Bilirubin 0.20 AST 16 ALT 13 Alkaline Phosphatase 49 Total Protein 6.7 Albumin 4.3 Albumin/Globulin Ratio 1.8 Urine Color Urine Turbidity Urine pH Ur Specific Austin Urine Protein Urine Glucose (UA) Urine Ketones Urine Blood Urine Nitrite Urine Bilirubin Urine Urobilinogen Ur Leukocyte Esterase Urine WBC (Auto) Urine RBC (Auto) Urine Mucus Blood Type O POSITIVE Antibody Screen Negative 01/18/18 01/19/18 01/19/18 20:19 05:15 Unknown WBC RBC Hgb Hct MCV MCH MCHC RDW Plt Count Lymph % (Auto) Adams % (Auto) Eos % (Auto) Baso % (Auto) Lymph # Adams # Eos # Baso # Seg Neutrophils % Seg Neutrophils # Sodium Potassium Chloride Carbon Dioxide Anion Gap BUN Creatinine Estimated GFR BUN/Creatinine Ratio Glucose Calcium Magnesium 4.30 H 4.70 H Total Bilirubin AST ALT Alkaline Phosphatase Total Protein Albumin Albumin/Globulin Ratio Urine Color Yellow Urine Turbidity Clear Urine pH 6.0 Ur Specific Austin 1.018 Urine Protein <15 mg/dl Urine Glucose (UA) Neg Urine Ketones Neg Urine Blood Sm Urine Nitrite Neg Urine Bilirubin Neg Urine Urobilinogen < 2.0 Ur Leukocyte Esterase Neg Urine WBC (Auto) 5.0 Urine RBC (Auto) 2.0 Urine Mucus 1+ Blood Type Antibody Screen
[2018-01-19] MEDS: PRENATAL VITAMIN PO SCH (09:14)
[2018-01-19] MEDS: COLACE PO PRN ×2 (09:14→20:47)
--- NOTE | 2018-01-19 10:15 | Ultrasound Report ---
ULTRASOUND OB LIMITED History: Oligohydramnios, followup GABY Technique: Transabdominal ultrasound with Doppler interrogation. Gestation: Single Position: Cephalic Amniotic Fluid: Decreased GABY = 5.3 cm. Decreased from 9.9 on yesterday's exam. Heart Rate: 138 BPM
[2018-01-19] MEDS: MAGNESIUM SULFATE 40GM/1000ML 40 GM/1,000 ML BAG IV SCH (12:05)
[2018-01-19] MEDS: CELESTONE SOLUSPAN IM SCH (15:15)
[2018-01-19] MEDS: ERY-TAB PO SCH ×2 (17:45→23:43)
[2018-01-20] MEDS: POLYCILLIN/NS 2 GM/100 ML 2 GM/100 ML BAG IV SCH (06:37)
[2018-01-20] MEDS: ERY-TAB PO SCH ×4 (06:37→23:28)
--- NOTE | 2018-01-20 08:43 | Consultation ---
History of Present Illness Reason for consult: other (Pt is a 32yo BF EDC 05/26/18; EGA 22.0 weeks [facility] complaining of SROM clear fluid @ 1030 01/18/18. She denies bleeding or contractions. She received care at [facility] since 10 weeks, and course has been complicated by a previous delivery @ 31 weeks by C Section and Asthma . Patient did NOT keep consult appointment with [facility] and had a rescheduled appointment on 01/20/18 records are available. She was admitted and begun on IV Magnesium sulfate, IM Steroids and IV antibiotics. Today she denied further leaking of fluid, contractions or bleeding. ) Past History Past Medical History: asthma Past Surgical History: section - Obstetrical History : 2 Medications and Allergies Allergies Allergy/AdvReac Type Severity Reaction Status Date / Time No Known Allergies Allergy Verified 01/18/18 11:11 Home Medications Medication Instructions Recorded Confirmed Last Taken Type Ibuprofen [Motrin 600 MG tab] 600 mg PO Q8H PRN #30 tablet 12/21/16 01/19/18 Unknown Rx Multivitamin with Iron 1 each PO DAILY #30 tablet 12/21/16 01/19/18 Unknown Rx [Multivitamins with Iron] Vit-Fe Fumar-FA [ 1 tab PO QDAY 12/21/16 01/19/18 Unknown History Vitamin] oxyCODONE /ACETAMINOPHEN [Percocet 1 tab PO Q6HR PRN #30 tablet 12/21/16 Unknown Rx 5/325] Active Meds: Active Medications Acetaminophen (Tylenol) 650 mg PO Q4H PRN PRN Reason: Pain MILD(1-3)/Fever >100.5/ARANGO Amoxicillin (Trimox) 250 mg PO Q8HR FELICITA; Protocol Stop: 01/25/18 14:28 Betamethasone Acet/Betameth SodPhos (Celestone Soluspan) 12 mg IM Q24HR FELICITA Stop: 01/20/18 10:01 Last Admin: 01/19/18 15:15 Dose: 12 mg Docusate Sodium (Colace) 100 mg PO Q12H PRN PRN Reason: Constipation Last Admin: 01/19/18 20:47 Dose: 100 mg Erythromycin (Wale-Tab) 250 mg PO Q6HR FELICITA Last Admin: 01/20/18 06:37 Dose: 250 mg Magnesium Sulfate (Magnesium Sulfate 40gm/1000ml) 40 gm in 1,000 mls @ 37.5 mls /hr IV DIRECT FELICITA Last Infusion: 01/19/18 15:38 Dose: 1.5 mls/hr Parenteral Electrolytes (Normosol-R Ph 7.4) 1,000 mls @ 125 mls/hr IV DIRECT FELICITA Last Admin: 01/19/18 17:46 Dose: 75 mls/hr Magnesium Hydroxide (Milk Of Magnesia) 30 ml PO QHS PRN PRN Reason: Laxative Effect Multivitamins/Iron/Calcium ( Vitamin) 1 each PO QDAY FELICITA Last Admin: 01/19/18 09:14 Dose: 1 each Senna/Docusate Sodium (Senokot S) 2 tab PO Q12H PRN PRN Reason: Laxative Effect Last Admin: 01/19/18 20:47 Dose: 2 tab Simethicone (Mylicon) 80 mg PO Q6H PRN PRN Reason: Gas pain Zolpidem Tartrate (Ambien) 10 mg PO QHS PRN PRN Reason: Insomnia Last Admin: 01/19/18 01:18 Dose: 10 mg Review of Systems Constitutional: no fever, no chills, no sweats Eyes: deferred Ears, nose, mouth and throat: deferred Cardiovascular: no palpitations, no rapid/irregular heart beat, no edema, no shortness of breath, no high blood pressure Respiratory: no shortness of breath, no wheezing Breasts: deferred Gastrointestinal: no abdominal pain, no nausea, no vomiting Genitourinary: other (Adequate urine out put via cath ), no vaginal bleeding, no vaginal discharge, no leakage of fluid (During consultation ), no pelvic pain Integumentary: no rash Neurological: no headaches Allergic/Immunologic: no wheezing - Vital Signs Vital signs: Vital Signs Pulse BP Pulse Ox 100 H 122/68 98 01/18/18 11:16 01/18/18 11:16 01/18/18 11:16 Temp Pulse Resp BP Pulse Ox 96.8 F L 78 18 100/53 96 01/20/18 04:22 01/20/18 08:37 01/20/18 04:22 01/20/18 08:37 01/20/18 04:22 - Physical Exam Breasts: Positive: deferred Cardiovascular: Regular rate Lungs: Positive: Normal air movement Abdomen: Negative: tenderness, guarding Uterus: Negative: tender Extremities: Negative: tenderness Deep Tendon Reflex Grade: Normal +2 - Obstetrical FHR: auscultation normal (per RN ) Uterine Contraction Monitor Mode: External Uterine Contraction Pattern: Absent Results Result Diagrams: 01/18/18 11:40 01/18/18 11:40 Abnormal lab results 01/19/18 01/19/18 01/19/18 Range/Units 11:12 17:23 23:17 Magnesium 5.00 H 4.90 H 4.40 H (1.7-2.3) mg/dL 01/20/18 Range/Units 06:14 Magnesium 4.30 H (1.7-2.3) mg/dL All other labs normal. Ultrasound: report reviewed (Prelim US from 01/19/18 SIUP VTX GABY of 5.3 cm + FHT of 138 bpm ) Assessment and Plan ASSESSMENT This is a 32 year old para 0111 at 22.0 weeks per SHANTELL of 05/26/18 Noted to have fluid leakage per vagina most likely due to PPROM. All of the aforementioned findings are suggestive of an impending periviable loss. Currently admitted for expectant management due to periviable PPROM. Last GABY of 5.3 cm ( decreased from GABY of 9.9 cm) 01/18/18 Shortened cervical length of 2.3 2017 History of C/S at 31 weeks Asthma clinically stable Maternal Obesity with BMI of 33 RECOMMENDATIONS: During my discussion with the patient I had the opportunity to discuss the implications of PPROM, and oligohydramnios in early in . I explained that survival after delivery at or less than 23 weeks is limited, and that there is a high likelihood that this would develop chorioamnionitis, demise in utero or progress into labor and deliver well before the 23-24 weeks when meaningful viability is achieved. I also discussed the fact that morbidity and mortality with delivery between 24 to 26 weeks are high. I explained that if labor or clinical infections are present any time after initial evaluation of patients in this clinical scenario, then delivery is absolutely indicated. We generally do not recommend tocolysis in patients with PPROM prior to 24 weeks gestation since the risks of such an intervention outweigh any known benefits. For patients who do not show evidence of infection or labor, there are three options in the management of previable PPROM. These are OPTION 1: Nonintervention and Expectant management (conceivably as an outpatient if the patient desires) OPTION 2: Hospitalization, observation, steroids, tocolysis (as necessary) , antibiotics to prolong latency and aggressive surveillance (this protocol is most well described beyond 23 weeks gestation). OPTION 3: Termination of the . I also explained that for patients who choose expectant management that this is generally done in the hospital beyond the point of viability. PPROM managed as an outpatient entails a high risk for maternal infectious morbidity and demise in utero. RECOMMENDATIONS: 1. This patient previousluy DECLINED the option of termination. 2. I have indicated that, in all likelihood, this patient may benefit from cerclage placement in future pregnancies. 3. We agree with steroids to enhance lung maturity. 4. We agree with magnesium sulfate for 24 hours for neuroprotection. 5. Repeat ultrasound in 48 hours to determine if residual GABY has changed. 6. At this point we would recommend ultrasound on a weekly basis with possible twice weekly at 28 weeks gestation. 7. FHR tracing q shift. 8. We will obtain ultrasound tomorrow. 9. We would be in agreement with delivery at 34 weeks or as clinically indicated for signs of intolerance of labor. 10. I have indicated that (given the poor outcome for survival) she may consider expectant management of an abnormal FHR tracing in the early part of expectant management. 11. We reviewed the statistics for survival in the articles attached. 12. Please obtain a neonatology consult to discuss periviable PPROM and pulmonary hypoplasia in this clinical scenario. 13. Obtain CBC with DIFF 14. NICU consult .
[2018-01-20] MEDS ORDERED: NACL 0.9% 1000 ML 0 ML ONE (10:02)
[2018-01-20] MEDS: PRENATAL VITAMIN PO SCH (10:05)
[2018-01-20] MEDS: NORMOSOL-R PH 7.4 1,000 ML IV SCH ×2 (10:09→21:54)
[2018-01-20] MEDS: MAGNESIUM SULFATE 40GM/1000ML 40 GM/1,000 ML BAG IV SCH (10:49)
--- NOTE | 2018-01-20 13:44 | Progress Note ---
Assessment and Plan - Patient Problems (1) 21 weeks gestation of Onset Date: 01/18/18 Current Visit: Yes Status: Acute Plan to address problem: A: IUP @ 22 0/7 weeks PPROM - currently stable Previous C Section History of Previous delivery P: Continue with present management - IV hydration, IV antibiotics Appreciate [facility] consultation Completed Steroids Will discontinue IV Magnesium sulfate tomorrow Repeat GABY tomorrow NICU consultation (2) premature rupture of membranes (PPROM) with onset of labor after 24 hours of rupture in second trimester, antepartum Onset Date: 01/18/18 Current Visit: Yes Status: Acute (3) Previous delivery affecting , antepartum Onset Date: 01/18/18 Current Visit: Yes Status: Acute Subjective - Subjective Date of service: 01/20/18 Principal diagnosis: IUP @ 22 0/7 weeks; PPROM Interval history: Pt is a 32yo BF EDC 05/26/18; EGA 22 0/7 weeks presents to [facility] complaining of SROM clear fluid @ 1030 01/18/18. She denied bleeding or contractions. She received care at [facility] since 10 weeks, and course has been complicated by a previous delivery @ 31 weeks by C Section and Asthma for which she see's [facility]. records are available. She was admitted and begun on IV Magnesium sulfate, IM Steroids and IV antibiotics. Today she denies further leaking of fluid, contractions or bleeding. Patient reports: movement normal, no new complaints, no loss of fluid, no vaginal bleeding, no contractions Objective - Vital Signs Vital Signs: Vital Signs - 12hr 01/20/18 01/20/18 01/20/18 04:22 08:37 08:44 Temperature 96.8 F L Pulse Rate 78 78 78 Respiratory 18 Rate Blood Pressure 104/59 100/53 88/44 O2 Sat by Pulse 96 Oximetry 01/20/18 01/20/18 01/20/18 09:44 10:44 11:45 Temperature Pulse Rate 78 80 93 H Respiratory Rate Blood Pressure 99/54 99/54 109/65 O2 Sat by Pulse Oximetry 01/20/18 12:51 Temperature Pulse Rate 96 H Respiratory Rate Blood Pressure 122/56 O2 Sat by Pulse Oximetry - Exam Cardiovascular: Regular rate Lungs: Clear to auscultation Abdomen: Present: normal appearance, soft FHR: auscultation normal Uterine Contraction Monitor Mode: External Uterine Contraction Pattern: Absent - Labs Labs: Abnormal Labs 01/18/18 01/18/18 01/18/18 11:40 11:40 20:19 MCV 78 L MCH 25 L RDW 15.4 H Seg Neutrophils % 72.2 H Carbon Dioxide 19 L Creatinine 0.4 L Magnesium 4.30 H 01/19/18 01/19/18 01/19/18 05:15 11:12 17:23 MCV MCH RDW Seg Neutrophils % Carbon Dioxide Creatinine Magnesium 4.70 H 5.00 H 4.90 H 01/19/18 01/20/18 23:17 06:14 MCV MCH RDW Seg Neutrophils % Carbon Dioxide Creatinine Magnesium 4.40 H 4.30 H Laboratory Results - last 24 hr 01/19/18 01/19/18 01/20/18 17:23 23:17 06:14 Magnesium 4.90 H 4.40 H 4.30 H - Results US- obstetric: report reviewed (GABY 5.3)
[2018-01-20] MEDS: CELESTONE SOLUSPAN IM SCH (16:00)
[2018-01-20] MEDS: TRIMOX PO SCH ×2 (16:18→23:28)
[2018-01-20] MEDS: AMBIEN PO PRN (23:29)
[2018-01-21] MEDS: ERY-TAB PO SCH ×4 (05:21→23:54)
[2018-01-21] MEDS: TRIMOX PO SCH ×3 (07:59→22:06)
--- NOTE | 2018-01-21 08:36 | Consultation ---
History of Present Illness Consult date: 01/21/18 Requesting physician: BERTHA COBB History of present illness: Now 22 1/7 weeks Denies ctx fevers chills Small amount of leakage Received steroids and currently on Mg (H/O PPROM in 2017 at 31 weeks and had C/S) ---- EFM Baseline 140's with occasional variable deced ( decel at around 5:30 am) Reviewed findings with patient Stable at this time --- Abdomen - NT no rebound or guarding ext NT no edema Past History Past Medical History: asthma Past Surgical History: section - Obstetrical History : 2 Medications and Allergies Allergies Allergy/AdvReac Type Severity Reaction Status Date / Time No Known Allergies Allergy Verified 01/18/18 11:11 Home Medications Medication Instructions Recorded Confirmed Last Taken Type Ibuprofen [Motrin 600 MG tab] 600 mg PO Q8H PRN #30 tablet 12/21/16 01/19/18 Unknown Rx Multivitamin with Iron 1 each PO DAILY #30 tablet 12/21/16 01/19/18 Unknown Rx [Multivitamins with Iron] Vit-Fe Fumar-FA [ 1 tab PO QDAY 12/21/16 01/19/18 Unknown History Vitamin] oxyCODONE /ACETAMINOPHEN [Percocet 1 tab PO Q6HR PRN #30 tablet 12/21/16 Unknown Rx 5/325] Active Meds: Active Medications Acetaminophen (Tylenol) 650 mg PO Q4H PRN PRN Reason: Pain MILD(1-3)/Fever >100.5/ARANGO Amoxicillin (Trimox) 250 mg PO Q8HR FELICITA; Protocol Stop: 01/25/18 14:28 Last Admin: 01/21/18 07:59 Dose: 250 mg Docusate Sodium (Colace) 100 mg PO Q12H PRN PRN Reason: Constipation Last Admin: 01/19/18 20:47 Dose: 100 mg Erythromycin (Wale-Tab) 250 mg PO Q6HR FELICITA Last Admin: 01/21/18 05:21 Dose: 250 mg Magnesium Sulfate (Magnesium Sulfate 40gm/1000ml) 40 gm in 1,000 mls @ 25 mls/ hr IV DIRECT FELICITA Last Admin: 01/20/18 10:49 Dose: 1.5 mls/hr Parenteral Electrolytes (Normosol-R Ph 7.4) 1,000 mls @ 125 mls/hr IV DIRECT FELICITA Last Admin: 01/20/18 21:54 Dose: 75 mls/hr Magnesium Hydroxide (Milk Of Magnesia) 30 ml PO QHS PRN PRN Reason: Laxative Effect Multivitamins/Iron/Calcium ( Vitamin) 1 each PO QDAY FELICITA Last Admin: 01/20/18 10:05 Dose: 1 each Senna/Docusate Sodium (Senokot S) 2 tab PO Q12H PRN PRN Reason: Laxative Effect Last Admin: 01/19/18 20:47 Dose: 2 tab Simethicone (Mylicon) 80 mg PO Q6H PRN PRN Reason: Gas pain Zolpidem Tartrate (Ambien) 10 mg PO QHS PRN PRN Reason: Insomnia Last Admin: 01/20/18 23:29 Dose: 10 mg - Vital Signs Vital signs: Vital Signs Pulse BP Pulse Ox 100 H 122/68 98 01/18/18 11:16 01/18/18 11:16 01/18/18 11:16 Temp Pulse Resp BP Pulse Ox 98.4 F 79 16 115/58 97 01/21/18 08:02 01/21/18 07:44 01/21/18 07:24 01/21/18 07:44 01/21/18 03:19 Results Result Diagrams: 01/18/18 11:40 01/18/18 11:40 Abnormal lab results 01/20/18 01/21/18 01/21/18 Range/Units 18:16 00:57 05:50 Magnesium 3.90 H 3.40 H 3.30 H (1.7-2.3) mg/dL All other labs normal. Assessment and Plan Assessment 1. Andrew IUP at 22 1/7 weeks 2. PPROM 3. Prior C/S at 31 weeks (PPROM) 4. Suspected Inc Cx 5. H/O Asthma Recommendations: 1. See Prior [facility] consult 2. US q week for Fluid and position 3. Delivery for S/S of chorio 4. NICU consult if not done 5. Once reaches viability would start EFM and if reassuring then q shift 6. DC Mg 7. Explained guarded prognosis due to PPROM 8. Antibiotics per protocol 9. US for EFW q 2 to 3 weeks 10. If reaches 26 weeks then BPP twice per week 11. Seq Leg comressors
[2018-01-21] MEDS: PRENATAL VITAMIN PO SCH (10:11)
[2018-01-21] MEDS: NORMOSOL-R PH 7.4 1,000 ML IV SCH ×2 (10:12→19:22)
[2018-01-21 10:27] LABS: Hematocrit 33.2 % (30.3-42.9); Hemoglobin 10.9 gm/dl (10.1-14.3); Mean Corpuscular HGB Conc 33 % (30-34); Mean Corpuscular Volume 78 fl (79-97); Platelet Count 203 K/mm3 (140-440); Red Blood Count 4.23 M/mm3 (3.65-5.03); Red Cell Distribution Width 15.5 % (13.2-15.2)
[2018-01-21 10:37] LABS: Mean Corpuscular Hemoglobin 26 pg (28-32)
--- NOTE | 2018-01-21 10:54 | Ultrasound Report ---
ULTRASOUND OB LIMITED History: Evaluate amniotic fluid Technique: Transabdominal ultrasound with Doppler interrogation. Gestation: Single Position: Cephalic Amniotic Fluid: Decreased GABY = 4.7 cm Heart Rate: 147 BPM
[2018-01-21 12:02] LABS: Anisocytosis 1+; Band Neutrophils # (Manual) 0.3 K/mm3; Basophils % (Manual) 0 % (0.0-1.8); Eosinophils % (Manual) 0 % (0.0-4.3); Ovalocytes 1+; Tear Drop Cells Few; Total Cells Counted 100
--- NOTE | 2018-01-21 15:15 | Progress Note ---
Assessment and Plan - Patient Problems (1) 21 weeks gestation of Onset Date: 01/18/18 Current Visit: Yes Status: Acute (2) premature rupture of membranes (PPROM) with onset of labor after 24 hours of rupture in second trimester, antepartum Onset Date: 01/18/18 Current Visit: Yes Status: Acute (3) Previous delivery affecting , antepartum Onset Date: 01/18/18 Current Visit: Yes Status: Acute (4) 22 weeks gestation of Onset Date: 01/21/18 Current Visit: Yes Status: Acute Plan to address problem: A: IUP @ 22 1/7 weeks PPROM - currently stable Previous C Section History of Previous delivery P: Continue with present management - IV hydration, IV antibiotics Appreciate [facility] consultation Completed Steroids Discontinued IV Magnesium sulfate NICU consultation Subjective - Subjective Date of service: 01/21/18 Principal diagnosis: IUP @ 22 1/7 weeks; PPROM Interval history: Pt is a 32yo BF EDC 05/26/18; EGA 22 1/7 weeks presented to [facility] complaining of SROM clear fluid @ 1030 01/18/18. She denied bleeding or contractions. She received care at [facility] since 10 weeks, and course has been complicated by a previous delivery @ 31 weeks by C Section and Asthma for which she see's [facility]. records are available. She was admitted and received IV Magnesium sulfate and IM Steroids, and currently on IV antibiotics. Today she denies further leaking of fluid, contractions or bleeding. Patient reports: movement normal, no new complaints, no loss of fluid, no vaginal bleeding, no contractions Objective - Vital Signs Vital Signs: Vital Signs - 12hr 01/21/18 01/21/18 01/21/18 03:18 03:19 03:44 Temperature 97.8 F Pulse Rate 80 83 81 Respiratory 20 Rate Blood Pressure 99/57 104/52 Blood Pressure 99/57 [Right] O2 Sat by Pulse 97 97 Oximetry 01/21/18 01/21/18 01/21/18 04:52 06:32 06:44 Temperature Pulse Rate 75 80 71 Respiratory Rate Blood Pressure 111/73 103/62 101/59 Blood Pressure [Right] O2 Sat by Pulse Oximetry 01/21/18 01/21/18 01/21/18 07:24 07:29 07:44 Temperature 97.9 F Pulse Rate 83 83 79 Respiratory 16 Rate Blood Pressure 98/53 115/58 Blood Pressure 98/53 [Right] O2 Sat by Pulse Oximetry 01/21/18 01/21/18 01/21/18 08:02 08:44 10:10 Temperature 98.4 F 98.2 F Pulse Rate 85 82 Respiratory 16 Rate Blood Pressure 114/62 Blood Pressure 117/56 [Right] O2 Sat by Pulse 99 Oximetry 01/21/18 01/21/18 01/21/18 10:12 10:14 10:17 Temperature Pulse Rate 81 82 90 Respiratory Rate Blood Pressure 117/56 Blood Pressure [Right] O2 Sat by Pulse 99 98 Oximetry 01/21/18 01/21/18 01/21/18 11:42 11:44 11:45 Temperature 98 F Pulse Rate 87 86 83 Respiratory 20 Rate Blood Pressure 111/55 Blood Pressure 111/55 [Right] O2 Sat by Pulse 97 98 Oximetry 01/21/18 01/21/18 01/21/18 11:49 11:54 11:59 Temperature Pulse Rate 90 92 H 88 Respiratory Rate Blood Pressure Blood Pressure [Right] O2 Sat by Pulse 98 98 98 Oximetry 01/21/18 01/21/18 01/21/18 12:04 12:09 12:14 Temperature Pulse Rate 87 86 97 H Respiratory Rate Blood Pressure Blood Pressure [Right] O2 Sat by Pulse 98 96 97 Oximetry 01/21/18 01/21/18 12:19 13:39 Temperature 97.8 F Pulse Rate 84 Respiratory Rate Blood Pressure Blood Pressure [Right] O2 Sat by Pulse 98 Oximetry - Exam Abdomen: Present: normal appearance, soft Uterine Contraction Pattern: Absent - Labs Labs: Abnormal Labs 01/18/18 01/18/18 01/18/18 11:40 11:40 20:19 WBC MCV 78 L MCH 25 L RDW 15.4 H Seg Neutrophils % 72.2 H Seg Neuts % (Manual) Lymphocytes % (Manual) Seg Neutrophils # Man Carbon Dioxide 19 L Creatinine 0.4 L Magnesium 4.30 H 01/19/18 01/19/18 01/19/18 05:15 11:12 17:23 WBC MCV MCH RDW Seg Neutrophils % Seg Neuts % (Manual) Lymphocytes % (Manual) Seg Neutrophils # Man Carbon Dioxide Creatinine Magnesium 4.70 H 5.00 H 4.90 H 01/19/18 01/20/1818 23:17 06:14 18:16 WBC MCV MCH RDW Seg Neutrophils % Seg Neuts % (Manual) Lymphocytes % (Manual) Seg Neutrophils # Man Carbon Dioxide Creatinine Magnesium 4.40 H 4.30 H 3.90 H 01/21/18 01/21/18 01/21/18 00:57 05:50 10:11 WBC 13.8 H MCV 78 L MCH 26 L RDW 15.5 H Seg Neutrophils % Seg Neuts % (Manual) 83.0 H Lymphocytes % (Manual) 11.0 L Seg Neutrophils # Man 11.5 H Carbon Dioxide Creatinine Magnesium 3.40 H 3.30 H Laboratory Results - last 24 hr 01/20/18 01/21/18 01/21/18 18:16 00:57 05:50 WBC RBC Hgb Hct MCV MCH MCHC RDW Plt Count Add Manual Diff Total Counted Seg Neuts % (Manual) Band Neutrophils % Lymphocytes % (Manual) Reactive Lymphs % (Man) Monocytes % (Manual) Eosinophils % (Manual) Basophils % (Manual) Metamyelocytes % Myelocytes % Promyelocytes % Blast Cells % Nucleated RBC % Seg Neutrophils # Man Band Neutrophils # Lymphocytes # (Manual) Abs React Lymphs (Man) Monocytes # (Manual) Eosinophils # (Manual) Basophils # (Manual) Metamyelocytes # Myelocytes # Promyelocytes # Blast Cells # WBC Morphology Hypersegmented Neuts Hyposegmented Neuts Hypogranular Neuts Smudge Cells Toxic Granulation Toxic Vacuolation Dohle Bodies Pelger-Huet Anomaly Vincent Rods Platelet Estimate Clumped Platelets Plt Clumps, EDTA Large Platelets Giant Platelets Platelet Satelliting Plt Morphology Comment RBC Morphology Dimorphic RBCs Polychromasia Hypochromasia Poikilocytosis Anisocytosis Microcytosis Macrocytosis Spherocytes Pappenheimer Bodies Sickle Cells Target Cells Tear Drop Cells Ovalocytes Helmet Cells Mcguire-[place] Bodies [place] Rings [place] Cells Bite Cells Crenated Cell Elliptocytes Acanthocytes (Spur) Rouleaux Hemoglobin C Crystals Schistocytes Malaria parasites Carlos Alberto Bodies Hem Pathologist Commnt Magnesium 3.90 H 3.40 H 3.30 H 01/21/18 10:11 WBC 13.8 H RBC 4.23 Hgb 10.9 Hct 33.2 MCV 78 L MCH 26 L MCHC 33 RDW 15.5 H Plt Count 203 Add Manual Diff Complete Total Counted 100 Seg Neuts % (Manual) 83.0 H Band Neutrophils % 2.0 Lymphocytes % (Manual) 11.0 L Reactive Lymphs % (Man) 0 Monocytes % (Manual) 3.0 Eosinophils % (Manual) 0 Basophils % (Manual) 0 Metamyelocytes % 1.0 Myelocytes % 0 Promyelocytes % 0 Blast Cells % 0 Nucleated RBC % Not Reportable Seg Neutrophils # Man 11.5 H Band Neutrophils # 0.3 Lymphocytes # (Manual) 1.5 Abs React Lymphs (Man) 0.0 Monocytes # (Manual) 0.4 Eosinophils # (Manual) 0.0 Basophils # (Manual) 0.0 Metamyelocytes # 0.1 Myelocytes # 0.0 Promyelocytes # 0.0 Blast Cells # 0.0 WBC Morphology Not Reportable Hypersegmented Neuts Not Reportable Hyposegmented Neuts Not Reportable Hypogranular Neuts Not Reportable Smudge Cells Not Reportable Toxic Granulation Not Reportable Toxic Vacuolation Not Reportable Dohle Bodies Not Reportable Pelger-Huet Anomaly Not Reportable Vincent Rods Not Reportable Platelet Estimate Appears normal Clumped Platelets Not Reportable Plt Clumps, EDTA Not Reportable Large Platelets Not Reportable Giant Platelets Not Reportable Platelet Satelliting Not Reportable Plt Morphology Comment Not Reportable RBC Morphology Not Reportable Dimorphic RBCs Not Reportable Polychromasia 1+ Hypochromasia Not Reportable Poikilocytosis Not Reportable Anisocytosis 1+ Microcytosis 1+ Macrocytosis Not Reportable Spherocytes Not Reportable Pappenheimer Bodies Not Reportable Sickle Cells Not Reportable Target Cells Not Reportable Tear Drop Cells Few Ovalocytes 1+ Helmet Cells Not Reportable Mcguire-[place]alston Bodies Not Reportable [place] Rings Not Reportable Radu Cells Not Reportable Bite Cells Not Reportable Crenated Cell Not Reportable Elliptocytes Few Acanthocytes (Spur) Not Reportable Rouleaux Not Reportable Hemoglobin C Crystals Not Reportable Schistocytes Not Reportable Malaria parasites Not Reportable Carlos Alberto Bodies Not Reportable Hem Pathologist Commnt No Magnesium - Results US- obstetric: report reviewed (GABY 4.7)
[2018-01-22] MEDS: NORMOSOL-R PH 7.4 1,000 ML IV SCH ×2 (03:16→16:25)
[2018-01-22] MEDS: TRIMOX PO SCH ×3 (06:13→23:30)
[2018-01-22] MEDS: ERY-TAB PO SCH ×3 (06:13→19:35)
--- NOTE | 2018-01-22 09:02 | Progress Note ---
Assessment and Plan - Patient Problems (1) 21 weeks gestation of Onset Date: 01/18/18 Current Visit: Yes Status: Acute (2) premature rupture of membranes (PPROM) with onset of labor after 24 hours of rupture in second trimester, antepartum Onset Date: 01/18/18 Current Visit: Yes Status: Acute (3) Previous delivery affecting , antepartum Onset Date: 01/18/18 Current Visit: Yes Status: Acute (4) 22 weeks gestation of Onset Date: 01/21/18 Current Visit: Yes Status: Acute Subjective - Subjective Date of service: 01/22/18 Principal diagnosis: IUP @ 22 2/7 weeks; PPROM Interval history: Pt is a 32yo BF EDC 05/26/18; EGA 22 1/7 weeks presented to [facility] complaining of SROM clear fluid @ 1030 01/18/18. She denied bleeding or contractions. She received care at [facility] since 10 weeks, and course has been complicated by a previous delivery @ 31 weeks by C Section and Asthma for which she see's [facility]. records are available. She was admitted and received IV Magnesium sulfate and IM Steroids, and currently on IV antibiotics. Today she denies further leaking of fluid, contractions or bleeding. Patient reports: movement normal, no new complaints, no loss of fluid, no vaginal bleeding, no contractions Objective - Vital Signs Vital Signs: Vital Signs - 12hr 01/21/18 01/22/18 01/22/18 23:56 00:02 04:08 Temperature 98.6 F Pulse Rate 81 81 75 Respiratory 18 Rate Blood Pressure 124/58 130/63 Blood Pressure 124/58 [Right] O2 Sat by Pulse 98 Oximetry 01/22/18 01/22/18 01/22/18 04:09 04:10 05:29 Temperature 98.4 F Pulse Rate 85 75 82 Respiratory 18 Rate Blood Pressure 112/58 Blood Pressure 130/63 [Right] O2 Sat by Pulse 100 100 Oximetry 01/22/18 01/22/18 01/22/18 07:18 07:25 07:30 Temperature 98.6 F Pulse Rate 77 60 64 Respiratory 20 Rate Blood Pressure 104/56 Blood Pressure 104/56 [Right] O2 Sat by Pulse 98 98 97 Oximetry 01/22/18 01/22/18 01/22/18 07:35 07:40 07:45 Temperature Pulse Rate 67 64 64 Respiratory Rate Blood Pressure Blood Pressure [Right] O2 Sat by Pulse 97 98 97 Oximetry - Labs Labs: Abnormal Labs 01/18/18 01/18/18 01/18/18 11:40 11:40 20:19 WBC MCV 78 L MCH 25 L RDW 15.4 H Seg Neutrophils % 72.2 H Seg Neuts % (Manual) Lymphocytes % (Manual) Seg Neutrophils # Man Carbon Dioxide 19 L Creatinine 0.4 L Magnesium 4.30 H 01/19/18 01/19/18 01/19/18 05:15 11:12 17:23 WBC MCV MCH RDW Seg Neutrophils % Seg Neuts % (Manual) Lymphocytes % (Manual) Seg Neutrophils # Man Carbon Dioxide Creatinine Magnesium 4.70 H 5.00 H 4.90 H 01/19/18 01/20/18 01/20/18 23:17 06:14 18:16 WBC MCV MCH RDW Seg Neutrophils % Seg Neuts % (Manual) Lymphocytes % (Manual) Seg Neutrophils # Man Carbon Dioxide Creatinine Magnesium 4.40 H 4.30 H 3.90 H 01/21/18 01/21/18 01/21/18 00:57 05:50 10:11 WBC 13.8 H MCV 78 L MCH 26 L RDW 15.5 H Seg Neutrophils % Seg Neuts % (Manual) 83.0 H Lymphocytes % (Manual) 11.0 L Seg Neutrophils # Man 11.5 H Carbon Dioxide Creatinine Magnesium 3.40 H 3.30 H Laboratory Results - last 24 hr 01/21/18 10:11 WBC 13.8 H RBC 4.23 Hgb 10.9 Hct 33.2 MCV 78 L MCH 26 L MCHC 33 RDW 15.5 H Plt Count 203 Add Manual Diff Complete Total Counted 100 Seg Neuts % (Manual) 83.0 H Band Neutrophils % 2.0 Lymphocytes % (Manual) 11.0 L Reactive Lymphs % (Man) 0 Monocytes % (Manual) 3.0 Eosinophils % (Manual) 0 Basophils % (Manual) 0 Metamyelocytes % 1.0 Myelocytes % 0 Promyelocytes % 0 Blast Cells % 0 Nucleated RBC % Not Reportable Seg Neutrophils # Man 11.5 H Band Neutrophils # 0.3 Lymphocytes # (Manual) 1.5 Abs React Lymphs (Man) 0.0 Monocytes # (Manual) 0.4 Eosinophils # (Manual) 0.0 Basophils # (Manual) 0.0 Metamyelocytes # 0.1 Myelocytes # 0.0 Promyelocytes # 0.0 Blast Cells # 0.0 WBC Morphology Not Reportable Hypersegmented Neuts Not Reportable Hyposegmented Neuts Not Reportable Hypogranular Neuts Not Reportable Smudge Cells Not Reportable Toxic Granulation Not Reportable Toxic Vacuolation Not Reportable Dohle Bodies Not Reportable Pelger-Huet Anomaly Not Reportable Vincent Rods Not Reportable Platelet Estimate Appears normal Clumped Platelets Not Reportable Plt Clumps, EDTA Not Reportable Large Platelets Not Reportable Giant Platelets Not Reportable Platelet Satelliting Not Reportable Plt Morphology Comment Not Reportable RBC Morphology Not Reportable Dimorphic RBCs Not Reportable Polychromasia 1+ Hypochromasia Not Reportable Poikilocytosis Not Reportable Anisocytosis 1+ Microcytosis 1+ Macrocytosis Not Reportable Spherocytes Not Reportable Pappenheimer Bodies Not Reportable Sickle Cells Not Reportable Target Cells Not Reportable Tear Drop Cells Few Ovalocytes 1+ Helmet Cells Not Reportable Mcgu[place] Bodies Not Reportable [place] Rings Not Reportable [place] Cells Not Reportable Bite Cells Not Reportable Crenated Cell Not Reportable Elliptocytes Few Acanthocytes (Spur) Not Reportable Rouleaux Not Reportable Hemoglobin C Crystals Not Reportable Schistocytes Not Reportable Malaria parasites Not Reportable Carlos Alberto Bodies Not Reportable Hem Pathologist Commnt No
[2018-01-22] MEDS: PRENATAL VITAMIN PO SCH (10:15)
[2018-01-22] MEDS: AMBIEN PO PRN (23:31)
[2018-01-23] MEDS: ERY-TAB PO SCH ×3 (06:32→23:13)
[2018-01-23] MEDS: TRIMOX PO SCH ×2 (06:32→21:54)
[2018-01-23] MEDS: PRENATAL VITAMIN PO SCH (09:31)
[2018-01-23] MEDS: NORMOSOL-R PH 7.4 1,000 ML IV SCH ×2 (10:27→18:29)
--- NOTE | 2018-01-23 18:03 | Progress Note ---
Assessment and Plan - Patient Problems (1) 21 weeks gestation of Onset Date: 01/18/18 Current Visit: Yes Status: Acute (2) premature rupture of membranes (PPROM) with onset of labor after 24 hours of rupture in second trimester, antepartum Onset Date: 01/18/18 Current Visit: Yes Status: Acute (3) Previous delivery affecting , antepartum Onset Date: 01/18/18 Current Visit: Yes Status: Acute (4) 22 weeks gestation of Onset Date: 01/21/18 Current Visit: Yes Status: Acute Plan to address problem: A: IUP @ 22 3/7 weeks PPROM - currently stable Previous C Section History of Previous delivery P: Continue with present management - IV hydration, IV antibiotics Appreciate [facility] consultation Completed Steroids Completed IV Magnesium sulfate NICU consultation Subjective - Subjective Date of service: 01/23/18 Principal diagnosis: IUP @ 22 3/7 weeks; PPROM Interval history: Pt is a 32yo BF EDC 05/26/18; EGA 22 3/7 weeks presented to [facility] complaining of SROM clear fluid @ 1030 01/18/18. She denied bleeding or contractions. She received care at [facility] since 10 weeks, and course has been complicated by a previous delivery @ 31 weeks by C Section and Asthma for which she see's [facility]. records are available. She was admitted and received IV Magnesium sulfate and IM Steroids, and currently on IV antibiotics. Today she denies further leaking of fluid, contractions or bleeding. Patient reports: movement normal, no new complaints, no loss of fluid, no vaginal bleeding, no contractions Objective - Vital Signs Vital Signs: Vital Signs - 12hr 01/23/18 01/23/18 01/23/18 06:34 06:36 07:43 Temperature 98.2 F 98.1 F Pulse Rate 77 77 76 Respiratory 18 18 Rate Blood Pressure 116/66 Blood Pressure 116/66 114/55 [Right] O2 Sat by Pulse 97 Oximetry 01/23/18 01/23/18 01/23/18 07:46 12:21 16:37 Temperature 98.3 F Pulse Rate 78 85 75 Respiratory 18 Rate Blood Pressure 114/55 124/64 Blood Pressure 110/73 [Right] O2 Sat by Pulse 98 99 Oximetry 01/23/18 01/23/18 16:40 16:41 Temperature Pulse Rate 82 78 Respiratory Rate Blood Pressure 110/73 Blood Pressure [Right] O2 Sat by Pulse 99 Oximetry - Exam Abdomen: Present: normal appearance, soft FHR: auscultation normal Uterine Contraction Monitor Mode: External Uterine Contraction Pattern: Absent - Labs Labs: Abnormal Labs 01/18/18 01/18/18 01/18/18 11:40 11:40 20:19 WBC MCV 78 L MCH 25 L RDW 15.4 H Seg Neutrophils % 72.2 H Seg Neuts % (Manual) Lymphocytes % (Manual) Seg Neutrophils # Man Carbon Dioxide 19 L Creatinine 0.4 L Magnesium 4.30 H 01/19/18 01/19/18 01/19/18 05:15 11:12 17:23 WBC MCV MCH RDW Seg Neutrophils % Seg Neuts % (Manual) Lymphocytes % (Manual) Seg Neutrophils # Man Carbon Dioxide Creatinine Magnesium 4.70 H 5.00 H 4.90 H 01/19/18 01/20/18 01/20/18 23:17 06:14 18:16 WBC MCV MCH RDW Seg Neutrophils % Seg Neuts % (Manual) Lymphocytes % (Manual) Seg Neutrophils # Man Carbon Dioxide Creatinine Magnesium 4.40 H 4.30 H 3.90 H 01/21/18 01/21/18 01/21/18 00:57 05:50 10:11 WBC 13.8 H MCV 78 L MCH 26 L RDW 15.5 H Seg Neutrophils % Seg Neuts % (Manual) 83.0 H Lymphocytes % (Manual) 11.0 L Seg Neutrophils # Man 11.5 H Carbon Dioxide Creatinine Magnesium 3.40 H 3.30 H
[2018-01-24] MEDS: ERY-TAB PO SCH ×3 (05:51→17:58)
[2018-01-24] MEDS: TRIMOX PO SCH ×3 (05:51→22:20)
[2018-01-24] MEDS: NORMOSOL-R PH 7.4 1,000 ML IV SCH ×3 (05:54→15:33)
--- NOTE | 2018-01-24 08:59 | Progress Note ---
Assessment and Plan - Patient Problems (1) 21 weeks gestation of Onset Date: 01/18/18 Current Visit: Yes Status: Acute (2) premature rupture of membranes (PPROM) with onset of labor after 24 hours of rupture in second trimester, antepartum Onset Date: 01/18/18 Current Visit: Yes Status: Acute (3) Previous delivery affecting , antepartum Onset Date: 01/18/18 Current Visit: Yes Status: Acute (4) 22 weeks gestation of Onset Date: 01/21/18 Current Visit: Yes Status: Acute Plan to address problem: A: IUP @ 22 4/7 weeks PPROM - currently stable Previous C Section History of Previous delivery P: Continue with present management - IV hydration, PO antibiotics Appreciate [facility] consultation Completed Steroids Completed IV Magnesium sulfate NICU consultation Subjective - Subjective Date of service: 01/24/18 Principal diagnosis: IUP @ 22 4/7 weeks; PPROM Interval history: Pt is a 32yo BF EDC 05/26/18; EGA 22 4/7 weeks presented to [facility] complaining of SROM clear fluid @ 1030 01/18/18. She denied bleeding or contractions. She received care at [facility] since 10 weeks, and course has been complicated by a previous delivery @ 31 weeks by C Section and Asthma for which she see's [facility]. records are available. She was admitted and received IV Magnesium sulfate and IM Steroids, and currently on PO antibiotics. Today she denies further leaking of fluid, contractions or bleeding. Patient reports: movement normal, no new complaints, no loss of fluid, no vaginal bleeding, no contractions Objective - Vital Signs Vital Signs: Vital Signs - 12hr 01/23/18 01/23/18 01/24/18 23:16 23:17 02:27 Temperature 98.5 F 98.5 F Pulse Rate 86 Respiratory 20 18 Rate Blood Pressure 112/61 Blood Pressure [Right] O2 Sat by Pulse Oximetry 01/24/18 01/24/18 01/24/18 02:30 05:56 08:44 Temperature 98.2 F 98.2 F Pulse Rate 86 82 85 Respiratory 18 16 Rate Blood Pressure 114/64 121/65 Blood Pressure 119/69 [Right] O2 Sat by Pulse 98 Oximetry 01/24/18 01/24/18 01/24/18 08:50 08:55 09:00 Temperature Pulse Rate 85 85 82 Respiratory Rate Blood Pressure 119/69 Blood Pressure [Right] O2 Sat by Pulse 99 99 Oximetry - Exam Abdomen: Present: normal appearance, soft FHR: auscultation normal Uterine Contraction Monitor Mode: External Uterine Contraction Pattern: Absent - Labs Labs: Abnormal Labs 01/18/18 01/18/18 01/18/18 11:40 11:40 20:19 WBC MCV 78 L MCH 25 L RDW 15.4 H Seg Neutrophils % 72.2 H Seg Neuts % (Manual) Lymphocytes % (Manual) Seg Neutrophils # Man Carbon Dioxide 19 L Creatinine 0.4 L Magnesium 4.30 H 01/19/18 01/19/18 01/19/18 05:15 11:12 17:23 WBC MCV MCH RDW Seg Neutrophils % Seg Neuts % (Manual) Lymphocytes % (Manual) Seg Neutrophils # Man Carbon Dioxide Creatinine Magnesium 4.70 H 5.00 H 4.90 H 01/19/18 01/20/18 01/20/18 23:17 06:14 18:16 WBC MCV MCH RDW Seg Neutrophils % Seg Neuts % (Manual) Lymphocytes % (Manual) Seg Neutrophils # Man Carbon Dioxide Creatinine Magnesium 4.40 H 4.30 H 3.90 H 01/21/18 01/21/18 01/21/18 00:57 05:50 10:11 WBC 13.8 H MCV 78 L MCH 26 L RDW 15.5 H Seg Neutrophils % Seg Neuts % (Manual) 83.0 H Lymphocytes % (Manual) 11.0 L Seg Neutrophils # Man 11.5 H Carbon Dioxide Creatinine Magnesium 3.40 H 3.30 H
[2018-01-24] MEDS: PRENATAL VITAMIN PO SCH (10:03)
[2018-01-25] MEDS: NORMOSOL-R PH 7.4 1,000 ML IV SCH ×3 (06:30→22:53)
[2018-01-25] MEDS: TRIMOX PO SCH ×2 (06:42→13:59)
[2018-01-25] MEDS: ERY-TAB PO SCH ×4 (06:43→23:52)
--- NOTE | 2018-01-25 07:48 | Progress Note ---
Assessment and Plan - Patient Problems (1) 21 weeks gestation of Onset Date: 01/18/18 Current Visit: Yes Status: Chronic (2) premature rupture of membranes (PPROM) with onset of labor after 24 hours of rupture in second trimester, antepartum Onset Date: 01/18/18 Current Visit: Yes Status: Chronic (3) Previous delivery affecting , antepartum Onset Date: 01/18/18 Current Visit: Yes Status: Chronic (4) 22 weeks gestation of Onset Date: 01/21/18 Current Visit: Yes Status: Acute Plan to address problem: A: IUP @ 22 5/7 weeks PPROM - currently stable Previous C Section History of Previous delivery P: Continue with present management - IV hydration, PO antibiotics Appreciate [facility] consultation Completed Steroids Completed IV Magnesium sulfate NICU consultation Subjective - Subjective Date of service: 01/25/18 Principal diagnosis: IUP @ 22 5/7 weeks; PPROM Interval history: Pt is a 32yo BF EDC 05/26/18; EGA 22 5/7 weeks presented to [facility] complaining of SROM clear fluid @ 1030 01/18/18. She denied bleeding or contractions. She received care at [facility] since 10 weeks, and course has been complicated by a previous delivery @ 31 weeks by C Section and Asthma for which she see's [facility]. records are available. She was admitted and received IV Magnesium sulfate and IM Steroids, and currently on PO antibiotics. Today she denies further leaking of fluid, contractions or bleeding. Patient reports: movement normal, no new complaints, no loss of fluid, no vaginal bleeding, no contractions Objective - Exam Breasts: deferred Abdomen: Present: normal appearance, soft Uterus: Present: normal FHR: auscultation normal Uterine Contraction Monitor Mode: External Uterine Contraction Pattern: Absent - Labs Labs: Abnormal Labs 01/18/18 01/18/18 01/18/18 11:40 11:40 20:19 WBC MCV 78 L MCH 25 L RDW 15.4 H Seg Neutrophils % 72.2 H Seg Neuts % (Manual) Lymphocytes % (Manual) Seg Neutrophils # Man Carbon Dioxide 19 L Creatinine 0.4 L Magnesium 4.30 H 01/19/18 01/19/18 01/19/18 05:15 11:12 17:23 WBC MCV MCH RDW Seg Neutrophils % Seg Neuts % (Manual) Lymphocytes % (Manual) Seg Neutrophils # Man Carbon Dioxide Creatinine Magnesium 4.70 H 5.00 H 4.90 H 01/19/18 01/20/18 01/20/18 23:17 06:14 18:16 WBC MCV MCH RDW Seg Neutrophils % Seg Neuts % (Manual) Lymphocytes % (Manual) Seg Neutrophils # Man Carbon Dioxide Creatinine Magnesium 4.40 H 4.30 H 3.90 H 01/21/18 01/21/18 01/21/18 00:57 05:50 10:11 WBC 13.8 H MCV 78 L MCH 26 L RDW 15.5 H Seg Neutrophils % Seg Neuts % (Manual) 83.0 H Lymphocytes % (Manual) 11.0 L Seg Neutrophils # Man 11.5 H Carbon Dioxide Creatinine Magnesium 3.40 H 3.30 H
[2018-01-25] MEDS: PRENATAL VITAMIN PO SCH (10:53)
[2018-01-26] MEDS ORDERED: BRETHINE ONE (01:41)
[2018-01-26] MEDS ORDERED: BRETHINE SUB-Q SCH (02:00)
[2018-01-26] MEDS: NORMOSOL-R PH 7.4 1,000 ML IV SCH (03:52)
[2018-01-26] MEDS ORDERED: STADOL IV ONE (04:02)
[2018-01-26] MEDS: ERY-TAB PO SCH (06:04)
[2018-01-26] MEDS ORDERED: AMPICILLIN/NS 1 GM/50 ML 1 GM/50 ML BAG IV SCH (07:00)
[2018-01-26] MEDS ORDERED: PITOCin/NS 20 UNIT/1000ML DRIP 20,000 MILLIUNITS/1,000 ML BAG IV ONE (07:26)
[2018-01-26] MEDS ORDERED: STADOL IV PRN (08:17)
--- NOTE | 2018-01-26 09:27 | Consultation ---
History of Present Illness Consult date: 01/20/18 Reason for consult: prematurity ( at cusp of viability) [place] Documentation - Maternal Info Maternal Blood Type: O (+) positive HbsAg: Negative HIV: Negative RPR/VDRL: Non-reactive Chlamydia: Negative Gonorrhea: Negative Group Beta Strep: Not Complete Rubella: Immune Amniotic Membrane Rupture Date: 01/18/18 Amniotic Membrane Rupture Time: 09:00 - information: Height 5 ft 7 in Medications and Allergies Allergies Allergy/AdvReac Type Severity Reaction Status Date / Time No Known Allergies Allergy Verified 01/18/18 11:11 Home Medications Medication Instructions Recorded Confirmed Last Taken Type Ibuprofen [Motrin 600 MG tab] 600 mg PO Q8H PRN #30 tablet 12/21/16 01/19/18 Unknown Rx Multivitamin with Iron 1 each PO DAILY #30 tablet 12/21/16 01/19/18 Unknown Rx [Multivitamins with Iron] Vit-Fe Fumar-FA [ 1 tab PO QDAY 12/21/16 01/19/18 Unknown History Vitamin] oxyCODONE /ACETAMINOPHEN [Percocet 1 tab PO Q6HR PRN #30 tablet 12/21/16 Unknown Rx 5/325] Active Meds: Active Medications Acetaminophen (Tylenol) 650 mg PO Q4H PRN PRN Reason: Pain MILD(1-3)/Fever >100.5/ARANGO Last Admin: 01/23/18 00:03 Dose: 650 mg Butorphanol Tartrate (Stadol) 2 mg IV Q2H PRN PRN Reason: Labor Pain Last Admin: 01/26/18 08:25 Dose: 2 mg Docusate Sodium (Colace) 100 mg PO Q12H PRN PRN Reason: Constipation Last Admin: 01/19/18 20:47 Dose: 100 mg Erythromycin (Wale-Tab) 250 mg PO Q6HR FELICITA Last Admin: 01/26/18 06:04 Dose: 250 mg Parenteral Electrolytes (Normosol-R Ph 7.4) 1,000 mls @ 125 mls/hr IV DIRECT FELICITA Last Admin: 01/26/18 03:52 Dose: 125 mls/hr Ampicillin Sodium (Ampicillin/Ns 1 Gm/50 Ml) 1 gm in 50 mls @ 100 mls/hr IV Q4HR FELICITA; Protocol Last Admin: 01/26/18 07:00 Dose: 100 mls/hr Magnesium Hydroxide (Milk Of Magnesia) 30 ml PO QHS PRN PRN Reason: Laxative Effect Multivitamins/Iron/Calcium ( Vitamin) 1 each PO QDAY FELICITA Last Admin: 01/25/18 10:53 Dose: 1 each Senna/Docusate Sodium (Senokot S) 2 tab PO Q12H PRN PRN Reason: Laxative Effect Last Admin: 01/19/18 20:47 Dose: 2 tab Simethicone (Mylicon) 80 mg PO Q6H PRN PRN Reason: Gas pain Terbutaline Sulfate (Brethine) 0.25 mg SUB-Q Q20MIN [facility] Stop: 01/28/18 02:01 Zolpidem Tartrate (Ambien) 10 mg PO QHS PRN PRN Reason: Insomnia Last Admin: 01/22/18 23:31 Dose: 10 mg Exam Vital Signs Pulse BP Pulse Ox 100 H 122/68 98 01/18/18 11:16 01/18/18 11:16 01/18/18 11:16 Temp Pulse Resp BP Pulse Ox 98.4 F 78 20 115/62 96 01/26/18 07:41 01/26/18 08:44 01/26/18 07:41 01/26/18 08:44 01/26/18 06:11 Results - Laboratory Findings 01/26/18 09:10 01/18/18 11:40 Assessment and Plan - Patient Problems (1) 22 weeks gestation of Onset Date: 01/21/18 Current Visit: Yes Status: Acute Plan to address problem: Ms Peterson is a 28 year old with EGA 05/26/2018. She was admitted due to premature rupture of membranes on 01/18/2018. Estimated gestational age is 22 weeks and she was started on a course of steroids. She is presently on bed rest and Magnesium sulfate The following issues were discussed with Ms Peterson 1. is present at the cusp of viability with mortality as high as 90 % 2. Complications that may arise from extreme prematurity which include but not limited to, respiratory distress syndrome, intraventricular hemorrhage, patent ductus arteriosus, periventricular leukomalacia, Necrotizing enterocolitis and spontaneous intestinal perforation Ms. Peterson expressed understanding and wishes NICU to be present at the delivery to assess viability and to resuscitate if baby appears viable. I also spoke with Ms Peterson on the phone and he also expressed the same desire Total time spent doing consult was 30 minutes
[2018-01-26 09:45] LABS: Hematocrit 33.1 % (30.3-42.9); Hemoglobin 10.8 gm/dl (10.1-14.3); Mean Corpuscular HGB Conc 33 % (30-34); Mean Corpuscular Volume 78 fl (79-97); Platelet Count 197 K/mm3 (140-440); Red Blood Count 4.23 M/mm3 (3.65-5.03); Red Cell Distribution Width 15.6 % (13.2-15.2)
[2018-01-26 09:54] LABS: Mean Corpuscular Hemoglobin 26 pg (28-32)
[2018-01-26] MEDS ORDERED: METHERGINE IM ONE (09:57)
--- NOTE | 2018-01-26 10:06 | Procedure Note ---
OB Delivery Note - Delivery Date of Delivery: 01/26/18 Surgeon: YANY MELARA Estimated blood loss: other (400cc) - Vaginal Delivery presentation: vertex Delivery position: OA Intrapartum events: labor-<37 weeks, PROM->1hr before delivery, hydramnios, mult.variable deceleratio Delivery induction: none Delivery monitor: external FHT, external uterine Route of delivery: Delivery placenta: spontaneous Delivery cord: 3 umbilical vessels Episiotomy: none Delivery laceration: none Anesthesia: none Delivery comments: Infant delivered OA and handed to awaiting Peds/RT in attendance - Infant A at 1 minute: 1 at 5 minutes: 3 (4 @ 10 mins and 6 @ 15 mins) Infant Gender: Male (430gm)
[2018-01-26] MEDS ORDERED: BENADRYL PO PRN (10:07)
[2018-01-26] MEDS ORDERED: TYLENOL PO PRN (10:07)
[2018-01-26] MEDS ORDERED: PHENERGAN PO PRN (10:07)
[2018-01-26] MEDS ORDERED: TUCKS PAD TP PRN (10:07)
[2018-01-26] MEDS ORDERED: DULCOLAX PR PRN (10:07)
[2018-01-26] MEDS ORDERED: NORCO 5/325 PO PRN (10:07)
[2018-01-26] MEDS ORDERED: LANSINOH TP PRN (10:07)
[2018-01-26] MEDS ORDERED: ZOFRAN IV PRN (10:07)
[2018-01-26] MEDS ORDERED: MILK OF MAGNESIA PO PRN (10:07)
[2018-01-26] MEDS ORDERED: PHENERGAN PR PRN (10:07)
[2018-01-26] MEDS ORDERED: SODIUM CHLORIDE FLUSH SYRINGE 10 ML IV NR (11:00)
[2018-01-26] MEDS ORDERED: PITOCin/NS 20 UNIT/1000ML DRIP 20 UNITS/1,000 ML BAG IV SCH (11:00)
[2018-01-26] MEDS: MOTRIN PO SCH ×2 (18:08→23:26)
[2018-01-26] MEDS ORDERED: FEOSOL PO SCH (22:00)
[2018-01-26 23:07] LABS: Hematocrit 30.9 % (30.3-42.9); Hemoglobin 9.8 gm/dl (10.1-14.3)
[2018-01-27] MEDS ORDERED: AMBIEN PO PRN (01:11)
[2018-01-27] MEDS: MOTRIN PO SCH (05:31)
[2018-01-27] MEDS ORDERED: BOOSTRIX IM ONE (06:00)
--- NOTE | 2018-01-27 08:21 | Progress Note ---
Assessment and Plan - Patient Problems (1) 21 weeks gestation of Onset Date: 01/18/18 Current Visit: Yes Status: Resolved (2) premature rupture of membranes (PPROM) with onset of labor after 24 hours of rupture in second trimester, antepartum Onset Date: 01/18/18 Current Visit: Yes Status: Resolved (3) Previous delivery affecting , antepartum Onset Date: 01/18/18 Current Visit: Yes Status: Resolved (4) 22 weeks gestation of Onset Date: 01/21/18 Current Visit: Yes Status: Resolved (5) (normal spontaneous vaginal delivery) Onset Date: 01/27/18 Current Visit: Yes Status: Resolved Plan to address problem: A: S/P - PPD #1 Doing well Asymptomatic anemia - stable P: May go home today Subjective - Subjective Date of service: 01/27/18 Principal diagnosis: s/p - PPD #1 Interval history: Pt is feeling well without complaints, bleeding improved. Patient reports: appetite normal, voiding normally, pain well controlled, flatus , ambulating normally, no dizzy ambulation, no nauseated [place]: Objective - Vital Signs Latest vital signs: Vital Signs Temp Pulse Resp BP BP Pulse Ox 01/27/18 06:00 98.7 F 78 18 117/79 01/27/18 00:00 98.7 F 74 18 121/68 01/26/18 11:25 99.2 F 80 20 106/61 01/26/18 10:28 96 H 120/76 01/26/18 10:13 99 H 128/78 01/26/18 09:52 118 H 79 L 01/26/18 09:50 115 H 85 01/26/18 09:47 108 H 99 01/26/18 09:42 103 H 100 01/26/18 09:40 99 H 80 L 01/26/18 09:37 101 H 100 01/26/18 08:44 78 115/62 Intake and Output 01/26/18 01/27/18 01/27/18 22:59 06:59 14:59 Intake Total 400 Balance 400 Intake: Oral 200 Intake, Free Water 200 Other: Total, Intake Amount 200 - Exam Breasts: Present: deferred Cardiovascular: Present: Regular rate Lungs: Present: Clear to auscultation Abdomen: Present: normal appearance Uterus: Present: normal, firm, fundal height below umbilicus Extremities: Present: normal - Labs Labs: Abnormal lab results 01/26/18 01/26/18 Range/Units 09:10 22:49 WBC 13.5 H (4.5-11.0) K/mm3 Hgb 9.8 L (10.1-14.3) gm/dl MCV 78 L (79-97) fl MCH 26 L (28-32) pg RDW 15.6 H (13.2-15.2) % Laboratory Tests 01/18/18 01/18/18 01/18/18 11:40 11:40 11:40 WBC 8.1 RBC 4.58 Hgb 11.7 Hct 35.7 MCV 78 L MCH 25 L MCHC 33 RDW 15.4 H Plt Count 185 Lymph % (Auto) 17.9 [place] % (Auto) 7.2 Eos % (Auto) 2.0 Baso % (Auto) 0.7 Lymph # 1.4 [place] # 0.6 Eos # 0.2 Baso # 0.1 Add Manual Diff Total Counted Seg Neutrophils % 72.2 H Seg Neuts % (Manual) Band Neutrophils % Lymphocytes % (Manual) Reactive Lymphs % (Man) Monocytes % (Manual) Eosinophils % (Manual) Basophils % (Manual) Metamyelocytes % Myelocytes % Promyelocytes % Blast Cells % Nucleated RBC % Seg Neutrophils # 5.8 Seg Neutrophils # Man Band Neutrophils # Lymphocytes # (Manual) Abs React Lymphs (Man) Monocytes # (Manual) Eosinophils # (Manual) Basophils # (Manual) Metamyelocytes # Myelocytes # Promyelocytes # Blast Cells # WBC Morphology Hypersegmented Neuts Hyposegmented Neuts Hypogranular Neuts Smudge Cells Toxic Granulation Toxic Vacuolation Dohle Bodies Pelger-Huet Anomaly Vincent Rods Platelet Estimate Clumped Platelets Plt Clumps, EDTA Large Platelets Giant Platelets Platelet Satelliting Plt Morphology Comment RBC Morphology Dimorphic RBCs Polychromasia Hypochromasia Poikilocytosis Anisocytosis Microcytosis Macrocytosis Spherocytes Pappenheimer Bodies Sickle Cells Target Cells Tear Drop Cells Ovalocytes Helmet Cells [place] Bodies Grace Rings Radu Cells Bite Cells Crenated Cell Elliptocytes Acanthocytes (Spur) Rouleaux Hemoglobin C Crystals Schistocytes Malaria parasites Carlos Alberto Bodies Hem Pathologist Commnt Sodium 138 Potassium 4.1 Chloride 101.2 Carbon Dioxide 19 L Anion Gap 22 BUN 7 Creatinine 0.4 L Estimated GFR > 60 BUN/Creatinine Ratio 18 Glucose 88 Calcium 9.1 Magnesium Total Bilirubin 0.20 AST 16 ALT 13 Alkaline Phosphatase 49 Total Protein 6.7 Albumin 4.3 Albumin/Globulin Ratio 1.8 Urine Color Urine Turbidity Urine pH Ur Specific [place] Urine Protein Urine Glucose (UA) Urine Ketones Urine Blood Urine Nitrite Urine Bilirubin Urine Urobilinogen Ur Leukocyte Esterase Urine WBC (Auto) Urine RBC (Auto) Urine Mucus Blood Type O POSITIVE Antibody Screen Negative 01/18/18 01/19/18 01/19/18 20:19 05:15 11:12 WBC RBC Hgb Hct MCV MCH MCHC RDW Plt Count Lymph % (Auto) [place] % (Auto) Eos % (Auto) Baso % (Auto) Lymph # [place] # Eos # Baso # Add Manual Diff Total Counted Seg Neutrophils % Seg Neuts % (Manual) Band Neutrophils % Lymphocytes % (Manual) Reactive Lymphs % (Man) Monocytes % (Manual) Eosinophils % (Manual) Basophils % (Manual) Metamyelocytes % Myelocytes % Promyelocytes % Blast Cells % Nucleated RBC % Seg Neutrophils # Seg Neutrophils # Man Band Neutrophils # Lymphocytes # (Manual) Abs React Lymphs (Man) Monocytes # (Manual) Eosinophils # (Manual) Basophils # (Manual) Metamyelocytes # Myelocytes # Promyelocytes # Blast Cells # WBC Morphology Hypersegmented Neuts Hyposegmented Neuts Hypogranular Neuts Smudge Cells Toxic Granulation Toxic Vacuolation Dohle Bodies Pelger-Huet Anomaly Vincent Rods Platelet Estimate Clumped Platelets Plt Clumps, EDTA Large Platelets Giant Platelets Platelet Satelliting Plt Morphology Comment RBC Morphology Dimorphic RBCs Polychromasia Hypochromasia Poikilocytosis Anisocytosis Microcytosis Macrocytosis Spherocytes Pappenheimer Bodies Sickle Cells Target Cells Tear Drop Cells Ovalocytes Helmet Cells [place] Bodies Grace Rings [place] Cells Bite Cells Crenated Cell Elliptocytes Acanthocytes (Spur) Rouleaux Hemoglobin C Crystals Schistocytes Malaria parasites Carlos Alberto Bodies Hem Pathologist Commnt Sodium Potassium Chloride Carbon Dioxide Anion Gap BUN Creatinine Estimated GFR BUN/Creatinine Ratio Glucose Calcium Magnesium 4.30 H 4.70 H 5.00 H Total Bilirubin AST ALT Alkaline Phosphatase Total Protein Albumin Albumin/Globulin Ratio Urine Color Urine Turbidity Urine pH Ur Specific [place] Urine Protein Urine Glucose (UA) Urine Ketones Urine Blood Urine Nitrite Urine Bilirubin Urine Urobilinogen Ur Leukocyte Esterase Urine WBC (Auto) Urine RBC (Auto) Urine Mucus Blood Type Antibody Screen 01/19/18 01/19/18 01/19/18 17:23 23:17 Unknown WBC RBC Hgb Hct MCV MCH MCHC RDW Plt Count Lymph % (Auto) [place] % (Auto) Eos % (Auto) Baso % (Auto) Lymph # [place] # Eos # Baso # Add Manual Diff Total Counted Seg Neutrophils % Seg Neuts % (Manual) Band Neutrophils % Lymphocytes % (Manual) Reactive Lymphs % (Man) Monocytes % (Manual) Eosinophils % (Manual) Basophils % (Manual) Metamyelocytes % Myelocytes % Promyelocytes % Blast Cells % Nucleated RBC % Seg Neutrophils # Seg Neutrophils # Man Band Neutrophils # Lymphocytes # (Manual) Abs React Lymphs (Man) Monocytes # (Manual) Eosinophils # (Manual) Basophils # (Manual) Metamyelocytes # Myelocytes # Promyelocytes # Blast Cells # WBC Morphology Hypersegmented Neuts Hyposegmented Neuts Hypogranular Neuts Smudge Cells Toxic Granulation Toxic Vacuolation Dohle Bodies Pelger-Huet Anomaly Vincent Rods Platelet Estimate Clumped Platelets Plt Clumps, EDTA Large Platelets Giant Platelets Platelet Satelliting Plt Morphology Comment RBC Morphology Dimorphic RBCs Polychromasia Hypochromasia Poikilocytosis Anisocytosis Microcytosis Macrocytosis Spherocytes Pappenheimer Bodies Sickle Cells Target Cells Tear Drop Cells Ovalocytes Helmet Cells [place]gu[place] Bodies Grace Rings Radu Cells Bite Cells Crenated Cell Elliptocytes Acanthocytes (Spur) Rouleaux Hemoglobin C Crystals Schistocytes Malaria parasites Carlos Alberto Bodies Hem Pathologist Commnt Sodium Potassium Chloride Carbon Dioxide Anion Gap BUN Creatinine Estimated GFR BUN/Creatinine Ratio Glucose Calcium Magnesium 4.90 H 4.40 H Total Bilirubin AST ALT Alkaline Phosphatase Total Protein Albumin Albumin/Globulin Ratio Urine Color Yellow Urine Turbidity Clear Urine pH 6.0 Ur Specific [place] 1.018 Urine Protein <15 mg/dl Urine Glucose (UA) Neg Urine Ketones Neg Urine Blood Sm Urine Nitrite Neg Urine Bilirubin Neg Urine Urobilinogen < 2.0 Ur Leukocyte Esterase Neg Urine WBC (Auto) 5.0 Urine RBC (Auto) 2.0 Urine Mucus 1+ Blood Type Antibody Screen 01/20/18 01/20/18 01/21/18 06:14 18:16 00:57 WBC RBC Hgb Hct MCV MCH MCHC RDW Plt Count Lymph % (Auto) [place] % (Auto) Eos % (Auto) Baso % (Auto) Lymph # [place] # Eos # Baso # Add Manual Diff Total Counted Seg Neutrophils % Seg Neuts % (Manual) Band Neutrophils % Lymphocytes % (Manual) Reactive Lymphs % (Man) Monocytes % (Manual) Eosinophils % (Manual) Basophils % (Manual) Metamyelocytes % Myelocytes % Promyelocytes % Blast Cells % Nucleated RBC % Seg Neutrophils # Seg Neutrophils # Man Band Neutrophils # Lymphocytes # (Manual) Abs React Lymphs (Man) Monocytes # (Manual) Eosinophils # (Manual) Basophils # (Manual) Metamyelocytes # Myelocytes # Promyelocytes # Blast Cells # WBC Morphology Hypersegmented Neuts Hyposegmented Neuts Hypogranular Neuts Smudge Cells Toxic Granulation Toxic Vacuolation Dohle Bodies Pelger-Huet Anomaly Vincent Rods Platelet Estimate Clumped Platelets Plt Clumps, EDTA Large Platelets Giant Platelets Platelet Satelliting Plt Morphology Comment RBC Morphology Dimorphic RBCs Polychromasia Hypochromasia Poikilocytosis Anisocytosis Microcytosis Macrocytosis Spherocytes Pappenheimer Bodies Sickle Cells Target Cells Tear Drop Cells Ovalocytes Helmet Cells [place]gu[place] Bodies Grace Rings Radu Cells Bite Cells Crenated Cell Elliptocytes Acanthocytes (Spur) Rouleaux Hemoglobin C Crystals Schistocytes Malaria parasites Carlos Alberto Bodies Hem Pathologist Commnt Sodium Potassium Chloride Carbon Dioxide Anion Gap BUN Creatinine Estimated GFR BUN/Creatinine Ratio Glucose Calcium Magnesium 4.30 H 3.90 H 3.40 H Total Bilirubin AST ALT Alkaline Phosphatase Total Protein Albumin Albumin/Globulin Ratio Urine Color Urine Turbidity Urine pH Ur Specific [place] Urine Protein Urine Glucose (UA) Urine Ketones Urine Blood Urine Nitrite Urine Bilirubin Urine Urobilinogen Ur Leukocyte Esterase Urine WBC (Auto) Urine RBC (Auto) Urine Mucus Blood Type Antibody Screen 01/21/18 01/21/18 01/26/18 05:50 10:11 09:10 WBC 13.8 H 13.5 H RBC 4.23 4.23 Hgb 10.9 10.8 Hct 33.2 33.1 MCV 78 L 78 L MCH 26 L 26 L MCHC 33 33 RDW 15.5 H 15.6 H Plt Count 203 197 Lymph % (Auto) [place] % (Auto) Eos % (Auto) Baso % (Auto) Lymph # [place] # Eos # Baso # Add Manual Diff Complete Total Counted 100 Seg Neutrophils % Seg Neuts % (Manual) 83.0 H Band Neutrophils % 2.0 Lymphocytes % (Manual) 11.0 L Reactive Lymphs % (Man) 0 Monocytes % (Manual) 3.0 Eosinophils % (Manual) 0 Basophils % (Manual) 0 Metamyelocytes % 1.0 Myelocytes % 0 Promyelocytes % 0 Blast Cells % 0 Nucleated RBC % Not Reportable Seg Neutrophils # Seg Neutrophils # Man 11.5 H Band Neutrophils # 0.3 Lymphocytes # (Manual) 1.5 Abs React Lymphs (Man) 0.0 Monocytes # (Manual) 0.4 Eosinophils # (Manual) 0.0 Basophils # (Manual) 0.0 Metamyelocytes # 0.1 Myelocytes # 0.0 Promyelocytes # 0.0 Blast Cells # 0.0 WBC Morphology Not Reportable Hypersegmented Neuts Not Reportable Hyposegmented Neuts Not Reportable Hypogranular Neuts Not Reportable Smudge Cells Not Reportable Toxic Granulation Not Reportable Toxic Vacuolation Not Reportable Dohle Bodies Not Reportable Pelger-Huet Anomaly Not Reportable Vincent Rods Not Reportable Platelet Estimate Appears normal Clumped Platelets Not Reportable Plt Clumps, EDTA Not Reportable Large Platelets Not Reportable Giant Platelets Not Reportable Platelet Satelliting Not Reportable Plt Morphology Comment Not Reportable RBC Morphology Not Reportable Dimorphic RBCs Not Reportable Polychromasia 1+ Hypochromasia Not Reportable Poikilocytosis Not Reportable Anisocytosis 1+ Microcytosis 1+ Macrocytosis Not Reportable Spherocytes Not Reportable Pappenheimer Bodies Not Reportable Sickle Cells Not Reportable Target Cells Not Reportable Tear Drop Cells Few Ovalocytes 1+ Helmet Cells Not Reportable [place]gu[place] Bodies Not Reportable Grace Rings Not Reportable Radu Cells Not Reportable Bite Cells Not Reportable Crenated Cell Not Reportable Elliptocytes Few Acanthocytes (Spur) Not Reportable Rouleaux Not Reportable Hemoglobin C Crystals Not Reportable Schistocytes Not Reportable Malaria parasites Not Reportable Carlos Alberto Bodies Not Reportable Hem Pathologist Commnt No Sodium Potassium Chloride Carbon Dioxide Anion Gap BUN Creatinine Estimated GFR BUN/Creatinine Ratio Glucose Calcium Magnesium 3.30 H Total Bilirubin AST ALT Alkaline Phosphatase Total Protein Albumin Albumin/Globulin Ratio Urine Color Urine Turbidity Urine pH Ur Specific [place] Urine Protein Urine Glucose (UA) Urine Ketones Urine Blood Urine Nitrite Urine Bilirubin Urine Urobilinogen Ur Leukocyte Esterase Urine WBC (Auto) Urine RBC (Auto) Urine Mucus Blood Type Antibody Screen 01/26/18 01/26/18 09:12 22:49 WBC RBC Hgb 9.8 L Hct 30.9 MCV MCH MCHC RDW Plt Count Lymph % (Auto) [place] % (Auto) Eos % (Auto) Baso % (Auto) Lymph # [place] # Eos # Baso # Add Manual Diff Total Counted Seg Neutrophils % Seg Neuts % (Manual) Band Neutrophils % Lymphocytes % (Manual) Reactive Lymphs % (Man) Monocytes % (Manual) Eosinophils % (Manual) Basophils % (Manual) Metamyelocytes % Myelocytes % Promyelocytes % Blast Cells % Nucleated RBC % Seg Neutrophils # Seg Neutrophils # Man Band Neutrophils # Lymphocytes # (Manual) Abs React Lymphs (Man) Monocytes # (Manual) Eosinophils # (Manual) Basophils # (Manual) Metamyelocytes # Myelocytes # Promyelocytes # Blast Cells # WBC Morphology Hypersegmented Neuts Hyposegmented Neuts Hypogranular Neuts Smudge Cells Toxic Granulation Toxic Vacuolation Dohle Bodies Pelger-Huet Anomaly Vincent Rods Platelet Estimate Clumped Platelets Plt Clumps, EDTA Large Platelets Giant Platelets Platelet Satelliting Plt Morphology Comment RBC Morphology Dimorphic RBCs Polychromasia Hypochromasia Poikilocytosis Anisocytosis Microcytosis Macrocytosis Spherocytes Pappenheimer Bodies Sickle Cells Target Cells Tear Drop Cells Ovalocytes Helmet Cells [place]gu[place] Bodies Grace Rings Radu Cells Bite Cells Crenated Cell Elliptocytes Acanthocytes (Spur) Rouleaux Hemoglobin C Crystals Schistocytes Malaria parasites Carlos Alberto Bodies Hem Pathologist Commnt Sodium Potassium Chloride Carbon Dioxide Anion Gap BUN Creatinine Estimated GFR BUN/Creatinine Ratio Glucose Calcium Magnesium Total Bilirubin AST ALT Alkaline Phosphatase Total Protein Albumin Albumin/Globulin Ratio Urine Color Urine Turbidity Urine pH Ur Specific [place] Urine Protein Urine Glucose (UA) Urine Ketones Urine Blood Urine Nitrite Urine Bilirubin Urine Urobilinogen Ur Leukocyte Esterase Urine WBC (Auto) Urine RBC (Auto) Urine Mucus Blood Type O POSITIVE Antibody Screen Negative
--- NOTE | 2018-01-27 08:35 | Discharge Summary ---
Providers - Providers Date of Admission: 01/18/18 11:05 Date of discharge: 01/27/18 Attending physician: YANY MELARA 01/18/18 14:27 Consult to Physician [CONS] Routine Consulting Provider: CHAPARRITA TORRES I Reason For Exam: 21 weeks; PPROM Place consult to:: [facility] Notified:: yes Phone number called:: [phone] Was contact made?: Yes If yes, spoke with:: Myriam Time called:: 14:31 01/19/18 08:40 Consult to Physician [CONS] Routine Consulting Provider: HUNTER HERBERT Reason For Exam: 21 weeks; PROM Place consult to:: NICU Notified:: yes Phone number called:: [phone] Was contact made?: Yes If yes, spoke with:: Kaylie Time called:: 08:41 Primary care physician: YANY MELARA Hospitalization Reason for admission: IUP - , rupture of membranes Delivery: Episiotomy: none Laceration: none Other procedures: none complications: none Discharge diagnosis: delivery [place] baby: male Hospital course: Pt was a 32yo BF EDC 05/26/18; EGA 22 5/7 weeks who presented to [facility] complaining of SROM clear fluid @ 1030 01/18/18. She denied bleeding or contractions. She received care at [facility] since 10 weeks, and course has been complicated by a previous delivery @ 31 weeks by C Section and Asthma for which she saw GERRY. She was admitted and received IV Magnesium sulfate, IM Steroids and IV antibiotics, and for 8 days she remained stable. However by HD#8 she went into spontaneous labor and delivered a non-viable male . Post course was unremarkable and she was therefore discharged to home on HD #9 in stable condition. Condition at discharge: Good Disposition: DC-01 TO HOME OR SELFCARE - Discharge Diagnoses (1) 21 weeks gestation of Status: Resolved (2) premature rupture of membranes (PPROM) with onset of labor after 24 hours of rupture in second trimester, antepartum Status: Resolved (3) Previous delivery affecting , antepartum Status: Resolved (4) 22 weeks gestation of Status: Resolved (5) (normal spontaneous vaginal delivery) Status: Resolved Plan - Discharge Medications Prescriptions: Ferrous Sulfate [Feosol 325 MG tab] 325 mg PO BID #60 tablet Ibuprofen [Motrin 600 MG tab] 600 mg PO Q6H #30 tablet Vit-Fe Fumar-FA [ Vitamin] 1 each PO QDAY #30 tablet - Provider Discharge Summary Activity: routine, no sex for 6 weeks, no heavy lifting 4 weeks, no strenuous exercise Diet: routine Instructions: routine Additional instructions: [] Smoking cessation referral if applicable(refer to patient education folder for contact #) [] Refer to [facility] Booklet Call your doctor immediately for: * Fever > 100.5 * Heavy vaginal bleeding ( >1 pad per hour) * Severe persistent headache * Shortness of breath * Reddened, hot, painful area to leg or breast * Drainage or odor from incision. * Keep incision clean and dry at all times and follow doctor's instructions regarding bathing/showering - Follow up plan Follow up: YANY MELARA MD [Primary Care Provider] - 6 Weeks
[2018-01-27 09:16] VITALS: BP 111/75
[2018-01-27] MEDS ORDERED: M-M-R II VACCINE SUB-Q ONE (10:07)
[2018-01-27] MEDS ORDERED: Fluarix Quad 2017-2018(36 MOS+ IM ONE (12:00)
== END 2018-01-27 09:40 | disposition home or self-care (01) | DRG 775 ==
LOC: LD 11:05 → OB 01-26 11:51
PROVIDERS: ADMIT Obstetrics & Gynecology; ATTEND Obstetrics & Gynecology
PROC: 10E0XZZ Delivery of Products of Conception, External Approach (ICD-10-PCS; principal; 2018-01-26)
PROC: 3E0234Z Introduction of Serum, Toxoid and Vaccine into Muscle, Percutaneous Approach (ICD-10-PCS; 2018-01-27)
DX: O60.12X0 Preterm labor second trimester with preterm delivery second trimester, not applicable or unspecified (principal); Z3A.21 21 weeks gestation of pregnancy; Z37.0 Single live birth; Z23 Encounter for immunization; O99.52 Diseases of the respiratory system complicating childbirth; J45.909 Unspecified asthma, uncomplicated; O99.214 Obesity complicating childbirth; E66.9 Obesity, unspecified; Z68.33 Body mass index [BMI] 33.0-33.9, adult; O76 Abnormality in fetal heart rate and rhythm complicating labor and delivery
CPT/HCPCS: 36415; 76815; 76816; 80053; 81001; 83735; 85007; 85014; 85018; 85025; 85027; 86850; 86900; 86901; 88305; 90471; 90686; 90715; G0008; J0290; J0595; J0702; J2210; J2590; J3105; J3475; J7030

== ENCOUNTER 2018-12-02 20:06 | Inpatient (IN) | payer OTHER ==
[2018-12-02] MEDS ORDERED: MAGNESIUM SULFATE 4GM/100ML 4 GM/100 ML BAG IV ONE (20:32)
[2018-12-02] MEDS ORDERED: LACTATED RINGERS 1,000 ML ONE (20:47)
--- NOTE | 2018-12-02 20:48 | History and Physical Report ---
History of Present Illness Date of examination: 12/02/18 Date of admission: 12/02/18 20:16 Chief complaint: Contractions History of present illness: Pt is a 33yo BF EDC 02/07/19; EGA 30 3/7 weeks presents to L&D complaining of RUC's q 3-4 mins and dilated 7cms. She received care at [facility] and co-managed by [facility] for previous C Section and previous PTD. records are not available and GBS is unknown. Past History Past Medical History: no pertinent history Past Surgical History: section Social history: no significant social history, - Obstetrical History Expected Date of Delivery: 02/07/19 Actual Gestation: 30 Week(s) 3 Day(s) : 2 Medications and Allergies Allergies Allergy/AdvReac Type Severity Reaction Status Date / Time No Known Allergies Allergy Verified 01/18/18 11:11 Home Medications Medication Instructions Recorded Confirmed Last Taken Type Ibuprofen [Motrin 600 MG tab] 600 mg PO Q8H PRN #30 tablet 12/21/16 01/19/18 Unknown Rx Multivitamin with Iron 1 each PO DAILY #30 tablet 12/21/16 01/19/18 Unknown Rx [Multivitamins with Iron] Vit-Fe Fumar-FA [ 1 tab PO QDAY 12/21/16 01/19/18 Unknown History Vitamin] oxyCODONE /ACETAMINOPHEN [Percocet 1 tab PO Q6HR PRN #30 tablet 12/21/16 0 01/19/18 Unknown Rx 5/325] Ferrous Sulfate [Feosol 325 MG tab] 325 mg PO BID #60 tablet 01/27/18 Unknown Rx Ibuprofen [Motrin 600 MG tab] 600 mg PO Q6H #30 tablet 01/27/18 Unknown Rx Vit-Fe Fumar-FA [ 1 each PO QDAY #30 tablet 01/27/18 Unknown Rx Vitamin] Active Meds: Active Medications Magnesium Sulfate (Magnesium Sulfate 40gm/1000ml) 40 gm in 1,000 mls @ 50 mls/hr IV DIRECT FELICITA Magnesium Sulfate (Magnesium Sulfate 4gm/100ml) 4 gm in 100 mls @ 25 mls/hr IV ONCE ONE Stop: 12/03/18 00:31 Review of Systems All systems: negative - Physical Exam Cardiovascular: Regular rate Lungs: Positive: Clear to auscultation Abdomen: Positive: normal appearance Genitourinary (Female): Positive: normal external genitalia Vagina: Positive: normal moisture Uterus: Positive: enlarged Extremities: Positive: normal - Obstetrical FHR: category 1 Uterine Contraction Monitor Mode: External Cervical Dilatation: 6.5 Cervical Effacement Percentage: 80 station: -2 Uterine Contraction Pattern: Regular Uterine Tone Measurement Phase: Contraction Uterine Contraction Intensity: Strong/Firm Results Result Diagrams: 12/02/18 20:30 All other labs normal. Assessment and Plan - Patient Problems (1) 31 weeks gestation of Onset Date: 12/02/18 Current Visit: No Status: Acute Plan to address problem: A: IUP @ 31 3/7 weeks labor Previous C Section P: Admit to L&D for expectant management Will obtain CBC, Ob u/s for position Begin IV Magnesium sulfate, IV Stadol, IV Steroids NICU consultation Obtain records (2) Active labor Onset Date: 12/02/18 Current Visit: No Status: Acute (3) Previous delivery affecting , antepartum Onset Date: 01/18/18 Current Visit: No Status: Resolved
[2018-12-02] MEDS ORDERED: ZOFRAN IV PRN ×2 (20:50→23:24)
[2018-12-02] MEDS ORDERED: SUBLIMAZE IV PRN (20:50)
[2018-12-02] MEDS ORDERED: AMPICILLIN/NS 2 GM/100 ML 2 GM/100 ML BAG IV ONE (20:50)
[2018-12-02] MEDS ORDERED: BRETHINE IVP PRN (20:50)
[2018-12-02] MEDS ORDERED: MINERAL OIL PO PRN (20:50)
[2018-12-02] MEDS ORDERED: XYLOCAINE 2% INFILTRATI ONE (20:50)
[2018-12-02] MEDS ORDERED: BRETHINE SUB-Q PRN (20:50)
[2018-12-02] MEDS ORDERED: MAGNESIUM SULFATE 40GM/1000ML 40 GM/1,000 ML BAG IV SCH (21:00)
[2018-12-02] MEDS ORDERED: PITOCin/NS 30 UNIT/500ML 30 UNITS/500 ML BAG IV SCH (21:00)
[2018-12-02] MEDS ORDERED: PITOCin/NS 20 UNIT/1000ML DRIP 20 UNITS/1,000 ML BAG IV SCH ×2 (21:00→23:45)
[2018-12-02] MEDS ORDERED: CELESTONE SOLUSPAN IM SCH (21:00)
[2018-12-02] MEDS ORDERED: LACTATED RINGERS 1,000 ML IV SCH (21:00)
[2018-12-02 21:09] LABS: Hematocrit 33.8 % (30.3-42.9); Hemoglobin 11.1 gm/dl (10.1-14.3); Mean Corpuscular HGB Conc 33 % (30-34); Mean Corpuscular Volume 80 fl (79-97); Platelet Count 218 K/mm3 (140-440); Red Blood Count 4.24 M/mm3 (3.65-5.03); Red Cell Distribution Width 14.6 % (13.2-15.2)
[2018-12-02] MEDS ORDERED: SENOKOT S PO SCH (22:00)
--- NOTE | 2018-12-02 23:21 | Procedure Note ---
OB Delivery Note - Delivery Date of Delivery: 12/02/18 Surgeon: YANY MELARA Estimated blood loss: 200cc - Vaginal Delivery presentation: vertex Delivery position: OA Intrapartum events: labor-<37 weeks, precipitous labor- <3hr, other(please specify) (previous C Section) Delivery induction: none Delivery augmentation: rupture of membranes Delivery monitor: external FHT, external uterine Route of delivery: Delivery placenta: spontaneous Delivery cord: 3 umbilical vessels Episiotomy: none Delivery laceration: none Anesthesia: intravenous Delivery comments: Infant delivered OA and placed on Mom's chest for [id number] bonding and delayed cord clamping, cut by Dad. Peds/RT in attendance - Infant A at 1 minute: 8 at 5 minutes: 9 Gender: Male (1725gms)
[2018-12-02] MEDS ORDERED: LANSINOH TP PRN (23:24)
[2018-12-02] MEDS ORDERED: BENADRYL PO PRN (23:24)
[2018-12-02] MEDS ORDERED: TUCKS PAD TP PRN (23:24)
[2018-12-02] MEDS ORDERED: TYLENOL PO PRN (23:24)
[2018-12-02] MEDS ORDERED: DULCOLAX PR PRN (23:24)
[2018-12-02] MEDS ORDERED: MILK OF MAGNESIA PO PRN (23:24)
[2018-12-02] MEDS ORDERED: PHENERGAN PO PRN (23:24)
[2018-12-02] MEDS ORDERED: PHENERGAN PR PRN (23:24)
[2018-12-02] MEDS ORDERED: SODIUM CHLORIDE FLUSH SYRINGE 10 ML IV NR (23:45)
--- NOTE | 2018-12-02 23:50 | Ultrasound Report ---
FINAL REPORT PROCEDURE: US OB >= 14 WEEKS FETUS TECHNIQUE: Real-time transabdominal sonography of the uterus, placenta, amniotic fluid, adnexa, and fetus was performed with image documentation. Measurements were obtained to determine age/size. M-mode Doppler was used to document heartbeat. CPT 80080 HISTORY: Compplete US,position,BPP,GABY.PTL,Hx of 22 wk iufd COMPARISON: No prior studies are available for comparison. FINDINGS: ADDITIONAL GESTATION: None. GENERAL: IUP: Single living intrauterine . Position: Cephalic Placental position: Anterior, without previa. Amniotic fluid volume: Normal. FETUS: Heart rate and rhythm: 156 beats per minute anatomic survey: Limited. MEASUREMENTS: BPD: 8.08 centimeters correspond at 32 weeks and 3 days HC: 28.91 centimeters correspond at 31 weeks 6 days AC: 26.93 centimeters correspond at 31 weeks FL: 5.76 centimeters correspond at 30 weeks and 1 day Mean Gestational Age (composite criteria): 31 weeks 3 days Ratio biometry: Normal. Estimated Weight: 1670 grams. Interval growth: No prior study Estimated Due Date (earliest scan): 01/31/2019 IMPRESSION: Single intrauterine gestation at 31 weeks and 3 days. Estimated due date: 01/31/2019. Normal survey w ith appropriate growth.
[2018-12-03] MEDS ORDERED: AMPICILLIN/NS 1 GM/50 ML 1 GM/50 ML BAG IV SCH (00:51)
[2018-12-03] MEDS: IBUPROFEN PO SCH ×2 (00:55→22:39)
[2018-12-03] MEDS: NORCO 5/325 PO PRN ×2 (04:52→16:01)
[2018-12-03] MEDS ORDERED: BOOSTRIX IM ONE (06:00)
--- NOTE | 2018-12-03 09:44 | Progress Note ---
Assessment and Plan - Patient Problems (1) 31 weeks gestation of Onset Date: 12/02/18 Current Visit: No Status: Resolved (2) Active labor Onset Date: 12/02/18 Current Visit: No Status: Resolved (3) Previous delivery affecting , antepartum Onset Date: 01/18/18 Current Visit: No Status: Resolved (4) , delivered Onset Date: 12/03/18 Current Visit: Yes Status: Resolved Plan to address problem: A: S/P () - PPD #1 Doing well Asymptomatic anemia - stable P: May go home tomorrow. Subjective - Subjective Date of service: 12/03/18 Principal diagnosis: s/p () - PPD #1 Interval history: Pt is feeling well without complaints. Bleeding improved. Patient reports: appetite normal, voiding normally, pain well controlled, flatus, ambulating normally, no dizzy ambulation, no nauseated : doing well, in NICU Objective - Vital Signs Latest vital signs: Vital Signs Temp Pulse Resp BP BP Pulse Ox 12/03/18 07:37 98.0 F 67 18 104/57 97 12/03/18 04:10 98.2 F 74 20 119/66 12/03/18 00:35 98.0 F 81 97 H 126/79 12/03/18 00:14 87 133/75 12/03/18 00:02 93 H 135/78 12/02/18 23:55 92 H 20 130/68 130/68 12/02/18 23:44 97 H 139/73 12/02/18 23:40 100 H 20 136/63 12/02/18 23:29 100 H 136/63 12/02/18 23:26 99 H 130/61 12/02/18 23:25 98.4 F 99 H 20 130/61 12/02/18 23:14 103 H 138/68 12/02/18 23:03 120 H 98 12/02/18 22:57 105 H 97 12/02/18 22:56 114 H 84 12/02/18 22:52 115 H 99 12/02/18 22:49 112 H 127/58 88 12/02/18 22:47 112 H 98 12/02/18 22:42 107 H 98 12/02/18 22:41 118 H 92 12/02/18 22:37 115 H 97 12/02/18 22:32 105 H 98 12/02/18 22:27 104 H 98 12/02/18 22:22 114 H 100 12/02/18 22:20 109 H 138/88 12/02/18 22:17 102 H 98 12/02/18 22:12 103 H 97 12/02/18 22:07 98 H 98 12/02/18 22:02 107 H 99 12/02/18 21:57 104 H 97 12/02/18 21:56 110 H 77 L 12/02/18 21:51 111 H 100 12/02/18 21:49 103 H 119/64 12/02/18 21:46 113 H 98 12/02/18 21:41 104 H 98 12/02/18 21:36 99 H 98 12/02/18 21:31 98 H 96 12/02/18 21:26 101 H 98 12/02/18 21:21 98 H 97 12/02/18 21:20 97.9 F 12/02/18 21:19 94 H 130/65 12/02/18 21:16 100 H 97 12/02/18 21:00 18 12/02/18 20:15 20 Intake and Output 12/02/18 12/03/18 12/03/18 22:59 06:59 14:59 Intake Total 860 240 Output Total 1150 Balance -290 240 Intake: IV 500 PITOCin/NS 20 UNIT/1000ML 500 DRIP 20 units In 1,000 ml @ 125 mls/hr IV DIRECT FELICITA Rx#:[id number] Oral 360 Intake, Free Water 240 Output: Urine 1150 Void 1150 Other: Total, Intake Amount 240 Total, Output Amount 600 # Voids Void 3 1 Weight 98.883 kg Estimated Blood Loss 200 - Exam Abdomen: Present: normal appearance, soft Uterus: Present: normal, firm, fundal height below umbilicus Extremities: Present: normal - Labs Labs: Abnormal lab results 12/02/18 Range/Units 20:30 MCH 26 L (28-32) pg Laboratory Tests 12/02/18 12/02/18 12/02/18 20:30 20:30 20:30 WBC 8.4 RBC 4.24 Hgb 11.1 Hct 33.8 MCV 80 MCH 26 L MCHC 33 RDW 14.6 Plt Count 218 RPR Nonreactive Hep Bs Antigen HIV 1&2 Antibody Rapid HIV P24 Antigen Rubella IgG Antibody Blood Type O POSITIVE Antibody Screen Negative 12/02/18 12/02/18 12/02/18 20:30 20:30 20:30 WBC RBC Hgb Hct MCV MCH MCHC RDW Plt Count RPR Hep Bs Antigen Non-reactive HIV 1&2 Antibody Rapid Non react HIV P24 Antigen Non react Rubella IgG Antibody Immune Blood Type Antibody Screen 12/03/18 12:50 WBC RBC Hgb 10.0 L Hct 31.3 MCV MCH MCHC RDW Plt Count RPR Hep Bs Antigen HIV 1&2 Antibody Rapid HIV P24 Antigen Rubella IgG Antibody Blood Type Antibody Screen
[2018-12-03] MEDS ORDERED: COLACE PO SCH (10:00)
[2018-12-03] MEDS ORDERED: PRENATAL VITAMIN PO SCH (10:00)
[2018-12-03] MEDS ORDERED: M-M-R II VACCINE SUB-Q ONE (10:00)
[2018-12-03 13:31] LABS: Hematocrit 31.3 % (30.3-42.9)
[2018-12-03] MEDS: FEOSOL PO SCH ×2 (16:01→22:39)
--- NOTE | 2018-12-03 21:13 | Discharge Summary ---
Providers - Providers Date of Admission: 12/02/18 20:16 Date of discharge: 12/04/18 Attending physician: YANY MELARA 12/02/18 20:58 Consult to Physician [CONS] Urgent Comment: Consulting Provider: HUNTER HERBERT Physician Instructions: Reason For Exam: IUP @ 31 weeks; PTL Primary care physician: YANY MELARA Hospitalization Reason for admission: active labor, IUP - , labor Delivery: Episiotomy: none Laceration: none Other procedures: none complications: none Discharge diagnosis: , delivery [place] baby: male Hospital course: Unremarkable Condition at discharge: Good Disposition: DC-01 TO HOME OR SELFCARE - Discharge Diagnoses (1) 31 weeks gestation of Status: Resolved (2) Active labor Status: Resolved (3) Previous delivery affecting , antepartum Status: Resolved (4) , delivered Status: Resolved Plan - Discharge Medications Prescriptions: Ferrous Sulfate [Feosol 325 MG tab] 325 mg PO BID #60 tablet Ibuprofen [Motrin 600 MG tab] 600 mg PO Q6H #30 tablet Vit-Fe Fumar-FA [ Vitamin] 1 each PO QDAY #30 tablet - Provider Discharge Summary Activity: routine, no sex for 6 weeks, no heavy lifting 4 weeks, no strenuous exercise Diet: routine Instructions: routine Additional instructions: [] Smoking cessation referral if applicable(refer to patient education folder for contact #) [] Refer to [facility] Booklet Call your doctor immediately for: * Fever > 100.5 * Heavy vaginal bleeding ( >1 pad per hour) * Severe persistent headache * Shortness of breath * Reddened, hot, painful area to leg or breast * Drainage or odor from incision. * Keep incision clean and dry at all times and follow doctor's instructions regarding bathing/showering - Follow up plan Follow up: YANY MELARA MD [Primary Care Provider] - 6 Weeks
[2018-12-04 02:59] VITALS: BP 102/56
== END 2018-12-04 06:04 | disposition home or self-care (01) | DRG 805 ==
LOC: TRG 20:06 → LD 20:07 → TRG 20:15 → LD 20:16 → OB 12-03 00:19
PROVIDERS: ADMIT Obstetrics & Gynecology; ATTEND Obstetrics & Gynecology
PROC: 10E0XZZ Delivery of Products of Conception, External Approach (ICD-10-PCS; principal; 2018-12-02)
PROC: 3E0234Z Introduction of Serum, Toxoid and Vaccine into Muscle, Percutaneous Approach (ICD-10-PCS; 2018-12-03)
DX: O34.211 Maternal care for low transverse scar from previous cesarean delivery (principal); O60.14X0 Preterm labor third trimester with preterm delivery third trimester, not applicable or unspecified; Z37.0 Single live birth; O99.02 Anemia complicating childbirth; D64.9 Anemia, unspecified; O62.3 Precipitate labor; Z3A.30 30 weeks gestation of pregnancy; Z79.899 Other long term (current) drug therapy; Z23 Encounter for immunization
CPT/HCPCS: 36415; 76805; 85014; 85018; 85027; 86592; 86706; 86762; 86850; 86900; 86901; 87806; 88307; G0378; A6250; J0290; J0702; J2590; J3010; J3475; J7120

== ENCOUNTER 2019-04-16 00:15 | Emergency (ER) | payer SELFPAY ==
[2019-04-16] MEDS ORDERED: SOLU-Medrol IV ONE (00:32)
[2019-04-16] MEDS ORDERED: PROVENTIL IH ONE (00:32)
[2019-04-16] MEDS ORDERED: PEPCID IV ONE (00:32)
[2019-04-16] MEDS ORDERED: ATROVENT IH ONE (00:32)
[2019-04-16] MEDS ORDERED: CARAFATE PO ONE (00:33)
--- NOTE | 2019-04-16 00:34 | Emergency Department Report ---
ED General Adult HPI - General Chief complaint: Abdominal Pain Stated complaint: CHEST PAIN/ABDOMINAL PAIN Time Seen by Provider: 04/16/19 00:23 Source: patient, EMS (ems notes not available at time of chart dictation), RN notes reviewed, old records reviewed Mode of arrival: Stretcher Limitations: No Limitations - History of Present Illness Initial comments: This is a 33-year-old female, not known to this provider previously. She may have a history of asthma or bronchitis. She presents to the emergency room with a complaint of upper chest discomfort after eating dinner, epigastric discomfort, now resolved. The patient's denies DVT, pulmonary embolus risk factors. She denies headache. Her symptoms started after eating dinner. She had lower abdominal cramping. This is now resolved. Patient denies recent aspirin consumption, with the exception of EMS administration today, denies oral contraceptive use. She may have a cough, she is not certain, she does not have a formal diagnosis of asthma that she is aware of. She reports that she basically feels fine at her baseline at this point in time. -: Gradual Location: chest, pelvis Radiation: abdomen Consistency: now resolved Improves with: other Worsens with: other - Related Data Home Medications Medication Instructions Recorded Confirmed Last Taken Vit-Fe Fumar-FA [ 1 tab PO QDAY 12/21/16 01/19/18 Unknown Vitamin] Previous Rx's Medication Instructions Recorded Last Taken Type Ibuprofen [Motrin 600 MG tab] 600 mg PO Q8H PRN #30 tablet 12/21/16 1 Day Ago Rx ~12/02/18 600 mg Multivitamin with Iron 1 each PO DAILY #30 tablet 12/21/16 Unknown Rx [Multivitamins with Iron] oxyCODONE /ACETAMINOPHEN [Percocet 1 tab PO Q6HR PRN #30 tablet 12/21/16 Unknown Rx 5/325] Ferrous Sulfate [Feosol 325 MG tab] 325 mg PO BID #60 tablet 01/27/18 Unknown Rx Ibuprofen [Motrin 600 MG tab] 600 mg PO Q6H #30 tablet 01/27/18 Unknown Rx Vit-Fe Fumar-FA [ 1 each PO QDAY #30 tablet 01/27/18 Unknown Rx Vitamin] Ferrous Sulfate [Feosol 325 MG tab] 325 mg PO BID #60 tablet 12/03/18 Unknown Rx Ibuprofen [Motrin 600 MG tab] 600 mg PO Q6H #30 tablet 12/03/18 Unknown Rx Vit-Fe Fumar-FA [ 1 each PO QDAY #30 tablet 12/03/18 Unknown Rx Vitamin] Albuterol Sulfate [Proair 90 mcg IH Q4HR PRN #2 aer.pow.ba 04/16/19 Unknown Rx Respiclick] Famotidine [Pepcid] 20 mg PO BID #10 tablet 04/16/19 Unknown Rx predniSONE [Deltasone] 40 mg PO QDAY #8 tab 04/16/19 Unknown Rx Allergies Allergy/AdvReac Type Severity Reaction Status Date / Time No Known Allergies Allergy Verified 01/18/18 11:11 ED Review of Systems ROS: Stated complaint: CHEST PAIN/ABDOMINAL PAIN Other details as noted in HPI Constitutional: denies: fever, malaise ENT: denies: congestion Respiratory: cough Cardiovascular: chest pain Gastrointestinal: abdominal pain Genitourinary: denies: dysuria Musculoskeletal: denies: arthralgia Skin: denies: lesions Neurological: denies: weakness ED Past Medical Hx - Past Medical History Hx Hypertension: No Hx Congestive Heart Failure: No Hx Diabetes: No Hx Deep Vein Thrombosis: No Hx Renal Disease: No Hx Sickle Cell Disease: No Hx Seizures: No Hx Asthma: No Hx COPD: No Hx HIV: No - Social History Smoking Status: Never Smoker - Medications Home Medications: Home Medications Medication Instructions Recorded Confirmed Last Taken Type Ibuprofen [Motrin 600 MG tab] 600 mg PO Q8H PRN #30 tablet 12/21/16 01/19/18 1 Day Ago Rx ~12/02/18 600 mg Multivitamin with Iron 1 each PO DAILY #30 tablet 12/21/16 01/19/18 Unknown Rx [Multivitamins with Iron] Vit-Fe Fumar-FA [ 1 tab PO QDAY 12/21/16 01/19/18 Unknown History Vitamin] oxyCODONE /ACETAMINOPHEN [Percocet 1 tab PO Q6HR PRN #30 tablet 12/21/16 01/19/18 Unknown Rx 5/325] Ferrous Sulfate [Feosol 325 MG tab] 325 mg PO BID #60 tablet 01/27/18 12/03/18 Unknown Rx Ibuprofen [Motrin 600 MG tab] 600 mg PO Q6H #30 tablet 01/27/18 Unknown Rx Vit-Fe Fumar-FA [ 1 each PO QDAY #30 tablet 01/27/18 12/03/18 Unknown Rx Vitamin] Ferrous Sulfate [Feosol 325 MG tab] 325 mg PO BID #60 tablet 12/03/18 Unknown Rx Ibuprofen [Motrin 600 MG tab] 600 mg PO Q6H #30 tablet 12/03/18 Unknown Rx Vit-Fe Fumar-FA [ 1 each PO QDAY #30 tablet 12/03/18 Unknown Rx Vitamin] Albuterol Sulfate [Proair 90 mcg IH Q4HR PRN #2 aer.pow.ba 04/16/19 Unknown Rx Respiclick] Famotidine [Pepcid] 20 mg PO BID #10 tablet 04/16/19 Unknown Rx predniSONE [Deltasone] 40 mg PO QDAY #8 tab 04/16/19 Unknown Rx ED Physical Exam - General Limitations: No Limitations General appearance: alert, in no apparent distress - Head Head exam: Present: atraumatic, normocephalic - Eye Eye exam: Present: normal appearance, EOMI. Absent: nystagmus - ENT ENT exam: Present: normal exam, normal orophraynx, mucous membranes moist, normal external ear exam - Neck Neck exam: Present: normal inspection, full ROM. Absent: tenderness, meningismus - Respiratory Respiratory exam: Present: wheezes. Absent: respiratory distress - Cardiovascular Cardiovascular Exam: Present: regular rate, normal rhythm, normal heart sounds. Absent: bradycardia, tachycardia, irregular rhythm, systolic murmur, diastolic murmur, rubs, gallop - GI/Abdominal GI/Abdominal exam: Present: soft. Absent: distended, tenderness, guarding, rebound, rigid, pulsatile mass - Extremities Exam Extremities exam: Present: normal inspection, full ROM, other (2+ pulses noted in the bilateral upper, lower extremities. Compartments soft. No long bony tenderness. The pelvis is stable.). Absent: pedal edema, joint swelling, calf tenderness - Back Exam Back exam: Present: normal inspection, full ROM. Absent: tenderness, CVA tenderness (R), CVA tenderness (L), muscle spasm, paraspinal tenderness, vertebral tenderness - Neurological Exam Neurological exam: Present: alert, oriented X3, normal gait, other (Extraocular movements intact. Tongue midline. No facial droop. Facial sensation intact to light touch in the V1, V2, V3 distribution bilaterally. 5 and 5 strength in 4 extremities.. Sensation is intact to light touch in 4 extremities.). Absent: motor sensory deficit - Psychiatric Psychiatric exam: Present: normal affect, normal mood - Skin Skin exam: Present: warm, dry, intact, normal color. Absent: rash ED Course Vital Signs 04/16/19 04/16/19 04/16/19 00:30 00:32 01:01 Temperature 97.9 F Pulse Rate 60 58 L 57 L Pulse Rate [ Anterior Bilateral Throughout] Respiratory 17 13 13 Rate Respiratory Rate [Anterior Bilateral Throughout] Blood Pressure 132/78 132/78 133/67 Blood Pressure [Left] O2 Sat by Pulse 99 99 97 Oximetry 04/16/19 04/16/19 04/16/19 01:05 01:15 01:41 Temperature 98.3 F Pulse Rate 60 69 Pulse Rate [ 58 L Anterior Bilateral Throughout] Respiratory 21 23 Rate Respiratory 19 Rate [Anterior Bilateral Throughout] Blood Pressure 139/76 Blood Pressure 133/67 [Left] O2 Sat by Pulse 98 Oximetry 04/16/19 02:00 Temperature Pulse Rate 59 L Pulse Rate [ Anterior Bilateral Throughout] Respiratory 19 Rate Respiratory Rate [Anterior Bilateral Throughout] Blood Pressure 114/65 Blood Pressure [Left] O2 Sat by Pulse 100 Oximetry - Reevaluation(s) Reevaluation #1: 04/16/19 02:09 Differential diagnosis, including but not limited to: GERD, gastritis, hiatal hernia, pneumonia, bronchitis Assessment and plan: 33-year-old female, with wheezing, presumed esophageal pain after eating, abdominal cramping, now resolved. The patient is afebrile, with reassuring vital signs, not tachycardic, not hypoxic, endorses no pulmonary embolus or DVT risk factors, is low risk by well's criteria, and is perc negative She may have a history of bronchitis in the past, she is not certain. Her physical exam is unremarkable with the exception of wheezing, there is no abdominal tenderness, rebound or guarding, reports no family history of coronary artery disease, or DVT, pulmonary embolus, troponin negative 1, and EKG unremarkable 1. Patient low risk by heart score, and is at low risk for major adverse cardiac event. We will treat her symptoms, obtain x-ray to chest, repeat EKG, repeat troponin, and reassess. Reevaluation #2: 04/16/19 03:00 Patient reexamined. Smiling, talking to significant other, states "I feel on the percent better." EKG unchanged 2. Troponin negative 2. Wheezing resolved. Repeat physical exam unremarkable. Patient medically suitable to be discharged for outpatient follow-up. Return precautions are reviewed. ED Medical Decision Making - Lab Data Result diagrams: 04/16/19 00:36 04/16/19 00:36 Vital Signs 04/16/19 04/16/19 04/16/19 00:32 01:05 01:15 Temperature 97.9 F 98.3 F Pulse Rate 58 L 60 Pulse Rate [ 58 L Anterior Bilateral Throughout] Respiratory 13 21 Rate Respiratory 19 Rate [Anterior Bilateral Throughout] Blood Pressure 132/78 Blood Pressure 133/67 [Left] O2 Sat by Pulse 99 98 Oximetry Lab Results 04/16/19 04/16/19 04/16/19 Range/Units 00:36 00:36 00:36 WBC 5.1 (4.5-11.0) K/mm3 RBC 4.71 (3.65-5.03) M/mm3 Hgb 12.1 (10.1-14.3) gm/dl Hct 36.6 (30.3-42.9) % MCV 78 L (79-97) fl MCH 26 L (28-32) pg MCHC 33 (30-34) % RDW 15.4 H (13.2-15.2) % Plt Count 261 (140-440) K/mm3 PT 12.9 (12.2-14.9) Sec. INR 0.92 (0.87-1.13) Sodium 140 (137-145) mmol/L Potassium 4.2 (3.6-5.0) mmol/L Chloride 103.7 (98-107) mmol/L Carbon Dioxide 22 (22-30) mmol/L Anion Gap 19 mmol/L BUN 17 (7-17) mg/dL Creatinine 0.7 (0.7-1.2) mg/dL Estimated GFR > 60 ml/min BUN/Creatinine Ratio 24 % Glucose 110 H (65-100) mg/dL Calcium 10.9 H (8.4-10.2) mg/dL Total Bilirubin 0.20 (0.1-1.2) mg/dL AST 13 (5-40) units/L ALT 14 (7-56) units/L Alkaline Phosphatase 53 (35-129) units/L Troponin T < 0.010 (0.00-0.029) ng/mL Total Protein 7.1 (6.3-8.2) g/dL Albumin 4.5 (3.9-5) g/dL Albumin/Globulin Ratio 1.7 % Lipase (13-60) units/L HCG, Quant (0-4) mIU/mL Urine Bilirubin (Negative) Urine RBC (Auto) (0.0-6.0) /HPF U Epithel Cells (Auto) (0-13.0) /HPF 04/16/19 04/16/19 04/16/19 Range/Units 00:36 00:36 01:43 WBC (4.5-11.0) K/mm3 RBC (3.65-5.03) M/mm3 Hgb (10.1-14.3) gm/dl Hct (30.3-42.9) % MCV (79-97) fl MCH (28-32) pg MCHC (30-34) % RDW (13.2-15.2) % Plt Count (140-440) K/mm3 PT (12.2-14.9) Sec. INR (0.87-1.13) Sodium (137-145) mmol/L Potassium (3.6-5.0) mmol/L Chloride (98-107) mmol/L Carbon Dioxide (22-30) mmol/L Anion Gap mmol/L BUN (7-17) mg/dL Creatinine (0.7-1.2) mg/dL Estimated GFR ml/min BUN/Creatinine Ratio % Glucose (65-100) mg/dL Calcium (8.4-10.2) mg/dL Total Bilirubin (0.1-1.2) mg/dL AST (5-40) units/L ALT (7-56) units/L Alkaline Phosphatase (35-129) units/L Troponin T (0.00-0.029) ng/mL Total Protein (6.3-8.2) g/dL Albumin (3.9-5) g/dL Albumin/Globulin Ratio % Lipase 27 (13-60) units/L HCG, Quant < 2 (0-4) mIU/mL Urine Bilirubin Neg (Negative) Urine RBC (Auto) 2.0 (0.0-6.0) /HPF U Epithel Cells (Auto) 2.0 (0-13.0) /HPF - EKG Data -: EKG Interpreted by Me Rate: bradycardia - EKG Data When compared to previous EKG there are: previous EKG unavailable 04/16/19 02:10 EKG shows a sinus bradycardia, 55 bpm, normal axis, normal intervals, unremarkable EKG, not consistent with ST elevation myocardial infarction, there is no prior EKG available for comparison. - Radiology Data Radiology results: pending, image reviewed interpreted by me: Two-view x-ray of the chest, interpreted by me, no acute disease, unremarkable plain film. Critical care attestation.: If time is entered above; I have spent that time in minutes in the direct care of this critically ill patient, excluding procedure time. ED Disposition Clinical Impression: Reactive airway disease, History of abdominal pain Disposition: - TO HOME OR SELFCARE Is pt being admited?: No Does the pt Need Aspirin: No Condition: Stable Additional Instructions: Take the medications as needed/directed. Avoid consumption for the time being of Motrin, ibuprofen, Naprosyn, Aleve, heavy, spicy foods. 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 Please return to the emergency room right away with new, worsening or different symptoms, or symptoms not present on the initial emergency room evaluation. Make sure he continues to albuterol treatment for the next 4 days, and complete the course of steroids. Avoid consumption of heavy, spicy rich foods. Return to the emergency room right away with you, worsened or different symptoms, or symptoms not present on the initial emergency room evaluation. Referrals: ANAM POMPA MD [Primary Care Provider] - 3-5 Days [facility] [Provider Group] - 3-5 Days [facility] [Provider Group] - 3-5 Days
[2019-04-16 00:48] LABS: Hematocrit 36.6 % (30.3-42.9); Hemoglobin 12.1 gm/dl (10.1-14.3); Mean Corpuscular HGB Conc 33 % (30-34); Mean Corpuscular Volume 78 fl (79-97); Platelet Count 261 K/mm3 (140-440); Red Blood Count 4.71 M/mm3 (3.65-5.03); Red Cell Distribution Width 15.4 % (13.2-15.2)
[2019-04-16 00:59] LABS: INR 0.92 (0.87-1.13)
[2019-04-16 01:11] LABS: Alanine Aminotransferase 14 units/L (7-56); Albumin 4.5 g/dL (3.9-5); BUN/Creatinine Ratio 24; Blood Urea Nitrogen 17 mg/dL (7-17); Calcium 10.9 mg/dL (8.4-10.2); Hemolysis Index 5
[2019-04-16 02:05] LABS: Amorphous Crystals,Urine 3+; Bilirubin,Urine NEG (Negative); Blood,Urine NEG (Negative); Color,Urine Yellow (Yellow); Protein,Urine <15 mg/dL mg/dL (Negative); Urobilinogen,Urine < 2.0 mg/dL (<2.0); WBC,Urine < 1.0 /HPF (0.0-6.0)
[2019-04-16 02:22] LABS: Mucus,Urine 1+ /HPF
--- NOTE | 2019-04-16 03:04 | XRay Report ---
PROCEDURE: XR CHEST ROUTINE 2V TECHNIQUE: PA and lateral chest radiographs were obtained. HISTORY: cough wheeze cp COMPARISONS: None. FINDINGS: Heart: Normal. Mediastinum/Vessels: Normal. Lungs/Pleural space: Normal. Bony thorax: No acute osseous abnormality. IMPRESSION: Normal examination. This document is electronically signed by Sofia Knox DO., April 16 2019 03:01:37 AM ET
[2019-04-16 03:38] VITALS: BP 104/61
== END 2019-04-16 03:37 | disposition home or self-care (01) ==
LOC: ED 00:15
DX: J45.909 Unspecified asthma, uncomplicated (principal); Z79.899 Other long term (current) drug therapy
CPT/HCPCS: 36415; 71046; 80053; 81001; 83690; 84484; 84702; 85027; 85610; 93005; 93010; 94640; 96374; 96375; 99285; J2930

== ENCOUNTER 2019-07-21 10:22 | Emergency (ER) | payer SELFPAY ==
[2019-07-21] MEDS ORDERED: ATROVENT IH ONE (11:06)
[2019-07-21] MEDS ORDERED: PROVENTIL IH ONE (11:06)
--- NOTE | 2019-07-21 11:12 | Emergency Department Report ---
ED Asthma HPI - General Chief Complaint: Dyspnea/Respdistress Stated Complaint: ZOYA Time Seen by Provider: 07/21/19 10:53 Source: patient, EMS Mode of arrival: Stretcher Limitations: No Limitations - History of Present Illness Initial Comments: Patient is 33 years old female with history of asthma. Patient brought to the emergency room via EMS for evaluation of asthma attack. Patient presented with shortness of breath and wheezing. Patient received sodium and Demerol 125 mg IV, magnesium sulfate 2 g and albuterol and Atrovent breathing treatment. Patient stated that she is feeling better but Chest is still tight. He denied any recent history of fever or chills. No nausea or vomiting. Patient also denied any chest pain. MD Complaint: "asthma attack", shortness of breath, wheezing -: Last night Asthma History: adult onset Severity: moderate Context: none known Treatments Prior to Arrival: inhaled bronchodilator, IV steroid, oxygen - Related Data Current Asthma Therapy: inhaled bronchodilator, inhaled steroid Home Medications Medication Instructions Recorded Confirmed Last Taken Vit-Fe Fumar-FA [ 1 tab PO QDAY 12/21/16 01/19/18 Unknown Vitamin] Previous Rx's Medication Instructions Recorded Last Taken Type Ibuprofen [Motrin 600 MG tab] 600 mg PO Q8H PRN #30 tablet 12/21/16 1 Day Ago Rx ~12/02/18 600 mg Multivitamin with Iron 1 each PO DAILY #30 tablet 12/21/16 Unknown Rx [Multivitamins with Iron] oxyCODONE /ACETAMINOPHEN [Percocet 1 tab PO Q6HR PRN #30 tablet 12/21/16 Unknown Rx 5/325] Ferrous Sulfate [Feosol 325 MG tab] 325 mg PO BID #60 tablet 01/27/18 Unknown Rx Ibuprofen [Motrin 600 MG tab] 600 mg PO Q6H #30 tablet 01/27/18 Unknown Rx Vit-Fe Fumar-FA [ 1 each PO QDAY #30 tablet 01/27/18 Unknown Rx Vitamin] Ferrous Sulfate [Feosol 325 MG tab] 325 mg PO BID #60 tablet 12/03/18 Unknown Rx Ibuprofen [Motrin 600 MG tab] 600 mg PO Q6H #30 tablet 12/03/18 Unknown Rx Vit-Fe Fumar-FA [ 1 each PO QDAY #30 tablet 12/03/18 Unknown Rx Vitamin] Albuterol Sulfate [Proair 90 mcg IH Q4HR PRN #2 aer.pow.ba 04/16/19 Unknown Rx Respiclick] Famotidine [Pepcid] 20 mg PO BID #10 tablet 04/16/19 Unknown Rx predniSONE [Deltasone] 40 mg PO QDAY #8 tab 04/16/19 Unknown Rx Allergies Allergy/AdvReac Type Severity Reaction Status Date / Time No Known Allergies Allergy Verified 01/18/18 11:11 ED Review of Systems ROS: Stated complaint: ZOYA Other details as noted in HPI Comment: All other systems reviewed and negative Constitutional: denies: chills, fever Respiratory: cough, shortness of breath, SOB with exertion, wheezing Cardiovascular: denies: chest pain, palpitations Gastrointestinal: denies: abdominal pain, nausea, vomiting, diarrhea, constipation, hematemesis, melena, hematochezia Musculoskeletal: denies: back pain Neurological: denies: headache, weakness, numbness, paresthesias, confusion, abnormal gait ED Past Medical Hx - Past Medical History Previous Medical History?: Yes Hx Hypertension: No Hx Congestive Heart Failure: No Hx Diabetes: No Hx Deep Vein Thrombosis: No Hx Renal Disease: No Hx Sickle Cell Disease: No Hx Seizures: No Hx Asthma: No Hx COPD: No Hx HIV: No - Surgical History Past Surgical History?: No - Social History Smoking Status: Never Smoker Substance Use Type: None - Medications Home Medications: Home Medications Medication Instructions Recorded Confirmed Last Taken Type Ibuprofen [Motrin 600 MG tab] 600 mg PO Q8H PRN #30 tablet 12/21/16 01/19/18 1 Day Ago Rx ~12/02/18 600 mg Multivitamin with Iron 1 each PO DAILY #30 tablet 12/21/16 01/19/18 Unknown Rx [Multivitamins with Iron] Vit-Fe Fumar-FA [ 1 tab PO QDAY 12/21/16 01/19/18 Unknown History Vitamin] oxyCODONE /ACETAMINOPHEN [Percocet 1 tab PO Q6HR PRN #30 tablet 12/21/16 01/19/18 Unknown Rx 5/325] Ferrous Sulfate [Feosol 325 MG tab] 325 mg PO BID #60 tablet 01/27/18 12/03/18 Unknown Rx Ibuprofen [Motrin 600 MG tab] 600 mg PO Q6H #30 tablet 01/27/18 Unknown Rx Vit-Fe Fumar-FA [ 1 each PO QDAY #30 tablet 01/27/12/03/18 Unknown Rx Vitamin] Ferrous Sulfate [Feosol 325 MG tab] 325 mg PO BID #60 tablet 12/03/18 Unknown Rx Ibuprofen [Motrin 600 MG tab] 600 mg PO Q6H #30 tablet 12/03/18 Unknown Rx Vit-Fe Fumar-FA [ 1 each PO QDAY #30 tablet 12/03/18 Unknown Rx Vitamin] Albuterol Sulfate [Proair 90 mcg IH Q4HR PRN #2 aer.pow.ba 04/16/19 Unknown Rx Respiclick] Famotidine [Pepcid] 20 mg PO BID #10 tablet 04/16/19 Unknown Rx predniSONE [Deltasone] 40 mg PO QDAY #8 tab 04/16/19 Unknown Rx ED Physical Exam - General Limitations: No Limitations General appearance: alert, in no apparent distress - Head Head exam: Present: atraumatic, normocephalic - Eye Eye exam: Present: normal appearance - ENT ENT exam: Present: normal exam, normal orophraynx, mucous membranes moist - Neck Neck exam: Present: normal inspection, full ROM. Absent: tenderness, meningismus, lymphadenopathy, thyromegaly - Respiratory Respiratory exam: Present: wheezes, prolonged expiratory. Absent: respiratory distress, rales, rhonchi, stridor, accessory muscle use, decreased breath sounds - Cardiovascular Cardiovascular Exam: Present: regular rate, normal rhythm, normal heart sounds - GI/Abdominal GI/Abdominal exam: Present: soft, normal bowel sounds. Absent: distended, tenderness, guarding, rebound, rigid, organomegaly, mass, bruit, pulsatile mass, hernia - Extremities Exam Extremities exam: Present: normal inspection, full ROM, normal capillary refill. Absent: pedal edema, calf tenderness - Back Exam Back exam: Present: normal inspection, full ROM. Absent: CVA tenderness (R), CVA tenderness (L), muscle spasm, paraspinal tenderness, vertebral tenderness - Neurological Exam Neurological exam: Present: alert, oriented X3, CN II-XII intact, normal gait, reflexes normal - Psychiatric Psychiatric exam: Present: normal mood - Skin Skin exam: Present: warm, intact, normal color ED Course Vital Signs 07/21/19 07/21/19 10:32 11:45 Temperature 98.7 F Pulse Rate 100 H Pulse Rate [ 82 Posterior Bilateral Throughout] Respiratory 22 Rate Respiratory 19 Rate [Posterior Bilateral Throughout] Blood Pressure 135/68 O2 Sat by Pulse 93 Oximetry ED Medical Decision Making - Lab Data Result diagrams: 07/21/19 11:32 07/21/19 11:32 - Radiology Data Radiology results: report reviewed - Medical Decision Making Patient is 33 years old female with history of asthma. Patient brought to the emergency room via EMS for evaluation of asthma attack. Patient presented with shortness of breath and wheezing. Patient received sodium and Demerol 125 mg IV, magnesium sulfate 2 g and albuterol and Atrovent breathing treatment. Patient stated that she is feeling better but Chest is still tight. He denied any recent history of fever or chills. No nausea or vomiting. Patient also denied any chest pain. Patient stated that she is feeling much better. Labs reviewed and is unremarkable. Chest x-ray is negative for acute finding. Patient advised to follow-up with her primary care physician and to return to the ER if symptoms are not improved. Critical care attestation.: If time is entered above; I have spent that time in minutes in the direct care of this critically ill patient, excluding procedure time. ED Disposition Clinical Impression: Asthma exacerbation Disposition: DC-01 TO HOME OR SELFCARE Is pt being admited?: No Condition: Stable Instructions: Asthma (ED) Referrals: PRIMARY CAREMD [Primary Care Provider] - 3-5 Days
--- NOTE | 2019-07-21 11:56 | XRay Report ---
CHEST 1 VIEW INDICATION: Dyspnea. COMPARISON: 04/16/2019 FINDINGS: Support devices: None. Heart: Within normal limits. Lungs/Pleura: No acute air space or interstitial disease. Additional findings: None. IMPRESSION: No acute findings. Signer Name: Devon Kelly Jr, MD Signed: 07/21/2019 11:52 AM Workstation Name: [id number]
[2019-07-21 12:07] LABS: BUN/Creatinine Ratio 20; Blood Urea Nitrogen 10 mg/dL (7-17); Calcium 9.4 mg/dL (8.4-10.2); Hemolysis Index 5
[2019-07-21 12:09] LABS: Basophils % (Auto) 0.5 % (0.0-1.8); Eosinophils # (Auto) 0.2 K/mm3 (0.0-0.4); Eosinophils % (Auto) 2.7 % (0.0-4.3); Hematocrit 38.9 % (30.3-42.9); Hemoglobin 12.4 gm/dl (10.1-14.3); Lymphocytes # (Auto) 0.8 K/mm3 (1.2-5.4); Lymphocytes % (Auto) 9.8 % (13.4-35.0); Mean Corpuscular HGB Conc 32 % (30-34); Mean Corpuscular Volume 78 fl (79-97); Monocytes # (Auto) 0.2 K/mm3 (0.0-0.8); Monocytes % (Auto) 3.2 % (0.0-7.3); Platelet Count 247 K/mm3 (140-440); Red Blood Count 4.98 M/mm3 (3.65-5.03); Red Cell Distribution Width 15.2 % (13.2-15.2)
[2019-07-21 13:31] VITALS: BP 123/74
== END 2019-07-21 13:31 | disposition home or self-care (01) ==
LOC: ED 10:22
DX: J45.901 Unspecified asthma with (acute) exacerbation (principal)
CPT/HCPCS: 36415; 71045; 80048; 85025; 93005; 93010; 94640; 94644

== ENCOUNTER 2020-04-14 09:25 | Inpatient (IN) | payer MEDICAID ==
[2020-04-14] MEDS ORDERED: TERBUTALINE 1 MG/1 ML INJ SUB-Q PRN (09:58)
[2020-04-14] MEDS ORDERED: BUTORPHANOL 2 MG/1 ML INJ IV PRN ×2 (09:58→10:00)
[2020-04-14] MEDS ORDERED: ePHEDrine SULFATE 50 MG/1 ML INJ IV PRN ×2 (09:58→16:49)
[2020-04-14] MEDS ORDERED: TERBUTALINE 1 MG/1 ML INJ IVP PRN (09:58)
[2020-04-14] MEDS ORDERED: LIDOCAINE (2%) 20 MG/1 ML VIAL 20 ML MDV INFILTRATI ONE ×2 (09:58→17:28)
[2020-04-14] MEDS ORDERED: fentaNYL 100 MCG/2 ML INJ IV PRN (09:58)
[2020-04-14] MEDS ORDERED: AMPICILLIN/NS 2 GM/100 ML 2 GM/100 ML BAG IV ONE (10:00)
[2020-04-14] MEDS ORDERED: LACTATED RINGERS 1,000 ML IV SCH (10:00)
[2020-04-14] MEDS ORDERED: OXYTOCIN 20 UNIT/1000ML DRIP 20 UNITS/1,000 ML BAG IV SCH (10:00)
[2020-04-14 10:18] LABS: Hematocrit 36.7 % (30.3-42.9); Hemoglobin 11.9 gm/dl (10.1-14.3); Mean Corpuscular HGB Conc 32 % (30-34); Mean Corpuscular Volume 79 fl (79-97); Platelet Count 209 K/mm3 (140-440); Red Blood Count 4.62 M/mm3 (3.65-5.03); Red Cell Distribution Width 14.6 % (13.2-15.2)
--- NOTE | 2020-04-14 10:29 | History and Physical Report ---
History of Present Illness Date of examination: 04/14/20 Date of admission: 04/14/2020 Chief complaint: PROM, TOLAC Previous sectionx1, followed by VBACx2 History of present illness: 34yo at 35+1/7 weeks, SHANTELL 05/18/2020 by LNMP consistent with first t rimester US presents with PROM. [facility] OB hx: #1: 2016 36 weeks, male, 4lb,11oz, primary c/section for PROM, distress #2: 2017, 25 weeks, male PPROM after 24 hours #3: 11/2018, 34 weeks male 3lb 11oz PPROM #4 current She completed an course of steroidsx2 on 03/15/20 and 03/16/20 complicated by polyhydramnios per [facility], hx of incompetent cervix, hx of PTD was on [facility]irst[facility] weekly labs: o/pos antibody screen positive H/H: 12.6/39.1 PTL 279 Rubella Reactive RPR NR HIV NR TSH 2.03 GC/Chlamydia negative GTT 1 hour: 141 Past History Past Medical History: asthma Past Surgical History: section Family/Genetic History: none Social history: no significant social history - Obstetrical History Expected Date of Delivery: 05/18/20 Actual Gestation: 35 Week(s) 1 Day(s) : 4 Para: 2 Number of Pregnancies: 3 Medications and Allergies Allergies Allergy/AdvReac Type Severity Reaction Status Date / Time No Known Allergies Allergy Verified 01/18/18 11:11 Home Medications Medication Instructions Recorded Confirmed Last Taken Type Ibuprofen [Motrin 600 MG tab] 600 mg PO Q8H PRN #30 tablet 12/21/16 01/19/18 1 Day Ago Rx ~12/02/18 600 mg Multivitamin with Iron 1 each PO DAILY #30 tablet 12/21/16 01/19/18 Unknown Rx [Multivitamins with Iron] Vit-Fe Fumar-FA [ 1 tab PO QDAY 12/21/16 01/19/18 Unknown History Vitamin] oxyCODONE /ACETAMINOPHEN [Percocet 1 tab PO Q6HR PRN #30 tablet 12/21/16 01/19/18 Unknown Rx 5/325] Ferrous Sulfate [Feosol 325 MG tab] 325 mg PO BID #60 tablet 01/27/18 12/03/18 Unknown Rx Ibuprofen [Motrin 600 MG tab] 600 mg PO Q6H #30 tablet 01/27/18 Unknown Rx Vit-Fe Fumar-FA [ 1 each PO QDAY #30 tablet 01/27/18 12/03/18 Unknown Rx Vitamin] Ferrous Sulfate [Feosol 325 MG tab] 325 mg PO BID #60 tablet 12/03/18 Unknown Rx Ibuprofen [Motrin 600 MG tab] 600 mg PO Q6H #30 tablet 12/03/18 Unknown Rx Vit-Fe Fumar-FA [ 1 each PO QDAY #30 tablet 12/03/18 Unknown Rx Vitamin] Albuterol Sulfate [Proair 90 mcg IH Q4HR PRN #2 aer.pow.ba 04/16/19 Unknown Rx Respiclick] Famotidine [Pepcid] 20 mg PO BID #10 tablet 04/16/19 Unknown Rx predniSONE [Deltasone] 40 mg PO QDAY #8 tab 04/16/19 Unknown Rx Prednisone [predniSONE 10 mg 10 mg PO .TAPER #1 tab.ds.pk 07/21/19 Unknown Rx (6-Day Pack, 21 Tabs)] Active Meds: Active Medications Butorphanol Tartrate (Stadol) 2 mg IV Q2H PRN PRN Reason: Pain , Severe (7-10) Butorphanol Tartrate (Stadol) 1 mg IV Q2H PRN PRN Reason: Pain, Moderate(4-6) LABOR PAIN Ephedrine Sulfate (Ephedrine Sulfate) 10 mg IV Q2M PRN PRN Reason: Hypotension Fentanyl (Sublimaze) 100 mcg IV Q2H PRN PRN Reason: Pain,Severe (7-10) LABOR PAIN Oxytocin/Sodium Chloride (Pitocin/Ns 20 Unit/1000ml Drip) 20 units in 1,000 mls @ 125 mls/hr IV DIRECT FELICITA Lactated Ringer's (Lactated Ringers) 1,000 mls @ 125 mls/hr IV DIRECT FELICITA Ampicillin Sodium (Ampicillin/Ns 2 Gm/100 Ml) 2 gm in 100 mls @ 100 mls/hr IV ONCE ONE; Protocol Stop: 04/14/20 10:59 Ampicillin Sodium (Ampicillin/Ns 1 Gm/50 Ml) 1 gm in 50 mls @ 100 mls/hr IV Q4HR FELICITA; Protocol Mineral Oil (Mineral Oil) 30 ml PO QHS PRN PRN Reason: Constipation Terbutaline Sulfate (Brethine) 0.25 mg SUB-Q ONCE PRN PRN Reason: Hyperstimulation/Hypertonicity Stop: 04/14/20 23:00 Terbutaline Sulfate (Brethine) 0.25 mg IVP ONCE PRN PRN Reason: Hyperstimulation/Hypertonicity Stop: 04/14/20 23:00 Review of Systems All systems: negative (PROM) - Vital Signs Vital signs: Vital Signs Pulse BP 95 H 108/65 04/14/20 10:16 04/14/20 10:16 Temp Pulse Resp BP Pulse Ox 54 L 108/65 92 04/14/20 10:19 04/14/20 10:16 04/14/20 10:19 - Physical Exam Breasts: Positive: deferred Cardiovascular: Regular rate Lungs: Positive: Clear to auscultation Abdomen: Positive: normal appearance Anus/Rectum: Positive: normal perianal skin Extremities: Positive: normal Deep Tendon Reflex Grade: Dull/Diminished +1 - Obstetrical FHR: category 1 Uterine Contraction Monitor Mode: External Cervical Dilatation: 6 station: -4 Uterine Contraction Pattern: Irregular Results Result Diagrams: 04/14/20 09:50 Abnormal lab results 04/14/20 Range/Units 09:50 MCH 26 L (28-32) pg All other labs normal. Assessment and Plan PROM GBS unknown TOLAC Plan Official US for position(was breech at 27 weeks, beside US confirms vertex as presenting part) once confirmed vertex plan for oxytocin augmentation antibiotics for GBS CFM maternal/ well being reassuring overall. Jeremy Edmond MD
[2020-04-14] MEDS ORDERED: OXYTOCIN DRIP 30 UNITS/500 ML BAG IV SCH (13:00)
[2020-04-14] MEDS ORDERED: AMPICILLIN/NS 1 GM/50 ML 1 GM/50 ML BAG IV SCH (14:00)
--- NOTE | 2020-04-14 14:29 | Ultrasound Report ---
Limited OB ultrasound INDICATION: well-being FINDINGS: Limited ultrasound imaging is performed. There is a single intrauterine . Fetus is in a ceph alic presentation. Placenta is located in the fundus and is grade 1. There is no evidence of abruptio n. heart rate is 142 bpm. Signer Name: Burak Murillo MD Signed: 04/14/2020 2:24 PM Workstation Name: [id number]
--- NOTE | 2020-04-14 14:41 | Progress Note ---
Subjective - Subjective Date of service: 04/14/20 Interval history: PROM recurrent variables noted, IUPC placed oxytocin at 10mu cervix 6cm/20%/-4 oxytocin decreased to 6mu will monitor closely maternal and well being reassuring overall Jeremy Edmond MD Objective - Vital Signs Vital Signs: Vital Signs - 12hr 04/14/20 04/14/20 04/14/20 10:16 10:18 10:19 Temperature Pulse Rate 95 H 49 L 54 L Blood Pressure 108/65 O2 Sat by Pulse 92 92 Oximetry 04/14/20 04/14/20 04/14/20 10:23 10:28 10:30 Temperature 99.1 F Pulse Rate 100 H 95 H Blood Pressure O2 Sat by Pulse 98 99 Oximetry 04/14/20 04/14/20 04/14/20 10:33 10:38 10:43 Temperature Pulse Rate 94 H 96 H 101 H Blood Pressure O2 Sat by Pulse 98 98 99 Oximetry 04/14/20 04/14/20 04/14/20 10:48 10:53 10:58 Temperature Pulse Rate 100 H 94 H 96 H Blood Pressure O2 Sat by Pulse 98 99 99 Oximetry 04/14/20 04/14/20 04/14/20 11:03 11:08 11:13 Temperature Pulse Rate 95 H 104 H 104 H Blood Pressure O2 Sat by Pulse 99 98 98 Oximetry 04/14/20 04/14/20 04/14/20 11:54 12:04 12:34 Temperature Pulse Rate 90 96 H 95 H Blood Pressure 88/51 81/47 103/61 O2 Sat by Pulse Oximetry 04/14/20 04/14/20 13:04 13:35 Temperature Pulse Rate 82 94 H Blood Pressure 98/57 112/59 O2 Sat by Pulse Oximetry - Labs Labs: Abnormal Labs 04/14/20 09:50 MCH 26 L Laboratory Results - last 24 hr 04/14/20 04/14/20 04/14/20 09:50 09:50 09:50 WBC 9.0 RBC 4.62 Hgb 11.9 Hct 36.7 MCV 79 MCH 26 L MCHC 32 RDW 14.6 Plt Count 209 Syphilis IgG Antibody Non-reactive Blood Type O POSITIVE Antibody Screen TNR FERNANDO Antibody Screen Negative
--- NOTE | 2020-04-14 16:47 | Anesthesia Consultation ---
Anesthesia Consult and Med Hx Date of service: 04/14/20 - Airway Anesthetic Teeth Evaluation: Good ROM Head & Neck: Adequate Mental/Hyoid Distance: Adequate Mallampati Class: Class II Intubation Access Assessment: Good - Pulmonary Exam CTA: Yes - Cardiac Exam Cardiac Exam: RRR - Pre-Operative Health Status ASA Pre-Surgery Classification: ASA2 Proposed Anesthetic Plan: Epidural - Pulmonary Hx Asthma: No COPD: No Hx Pneumonia: No - Cardiovascular System Hx Hypertension: No - Central Nervous System Hx Seizures: No Hx Psychiatric Problems: No - Endocrine Hx Renal Disease: No Hx End Stage Renal Disease: No Hx Hypothyroidism: No Hx Hyperthyroidism: No - Hematic Hx Anemia: No Hx Sickle Cell Disease: No - Other Systems Hx Alcohol Use: No Hx Obesity: Yes
[2020-04-14] MEDS ORDERED: NALOXONE 2 MG/2 ML INJ IV PRN (16:49)
--- NOTE | 2020-04-14 16:49 | Progress Note ---
Labor Epidural - Labor Epidural Start Time: 16:15 Stop Time: 16:18 Performed by:: MIRNA MALONE Procedure: Patient is requesting a laboring epidural for laboring pain. Patient IDed, H&P reviewed, all questions and concerns were answered, and consent was signed. Timeout was performed at bedside. Patient in sitting position. Sterile prep and drape was performed. 3 ml of 1% lidocaine skin wheal at L 3- L 4. 18-gauge Touhy epidural needle was advanced to loss of resistance with air technique. Negative CSF negative blood. Epidural catheter advanced to 15 centimeters. - Aspiration - test dose. Sterile dressing applied. Patient tolerated procedure.
[2020-04-14] MEDS ORDERED: fentaNYL-BUPIV 2 MCG/ML-0.125% 200 MCG/100 ML BAG EPIDURAL SCH (17:00)
--- NOTE | 2020-04-14 17:46 | Procedure Note ---
OB Delivery Note - Delivery Date of Delivery: 04/14/20 (17:14) Surgeon: JUAN CERVANTES (CNM) Estimated blood loss: 100cc - Vaginal Delivery presentation: vertex Delivery position: OA Intrapartum events: labor-<37 weeks, PROM->1hr before delivery, extend. bradycardia Delivery induction: none Delivery augmentation: pitocin Delivery monitor: external FHT, internal uterine Route of delivery: (17:14) Delivery placenta: spontaneous (17:20) Delivery cord: nuchal cord (CAN x1; reduced after delivery of baby), 3 umbilical vessels Episiotomy: midline Delivery laceration: none Delivery repair: vicryl (2-0 CT1) Anesthesia: epidural Delivery comments: Successful of a less-vigorous 5 lbs 4 oz male over midline episiotomy due to extended bradycardia on 04/14/20 @ 17:14 with NICU team at bedside. Umbilical cord immediately double-clamped and cut and baby was taken to the radiant warmer. Cord blood collected. Spontaneous delivery of placenta, Delaney-side presenting @ 17:20. Small lochia noted. Fundal massage and IV Pitocin bolus initiated. Fundus F/ML/U. Episiotomy repaired under epidural anesthesia. Pt tolerated the procedure well with minimal discomfort. Placenta intact and sent to pathology due to labor. Mom and baby in stable condition. - Infant A at 1 minute: 7 at 5 minutes: 9 Gender: Male (5 lbs 4 oz (2371 gm); 17.5 in)
[2020-04-14] MEDS ORDERED: BENZOCAINE/MENTHOL 20/0.5% TOP SPRAY 56 GM TP PRN (17:51)
[2020-04-14] MEDS ORDERED: PROMETHAZINE 25 MG TAB PO PRN (17:51)
[2020-04-14] MEDS ORDERED: PROMETHAZINE 25 MG RECT SUPP PR PRN (17:51)
[2020-04-14] MEDS ORDERED: HYDROcodone/ACETAMINOPHEN 5-325 MG TAB PO PRN (17:51)
[2020-04-14] MEDS ORDERED: LANOLIN/ZINC/DIMETHICONE (LANSINOH) 7 GM TP PRN (17:51)
[2020-04-14] MEDS ORDERED: diphenhydrAMINE 25 MG CAP PO PRN (17:51)
[2020-04-14] MEDS ORDERED: WITCH HAZEL/ GLYCERIN PAD TP PRN (17:51)
[2020-04-14] MEDS ORDERED: MAGNESIUM HYDROXIDE (MOM) ORAL LIQD UDC PO PRN (17:51)
[2020-04-14] MEDS ORDERED: ONDANSETRON 4 MG/2 ML INJ IV PRN (17:51)
[2020-04-14] MEDS ORDERED: ACETAMINOPHEN 325 MG TAB PO PRN (17:51)
[2020-04-14] MEDS: IBUPROFEN 600 MG TAB PO SCH (20:47)
[2020-04-14] MEDS ORDERED: MINERAL OIL 30 ML ORAL LIQD PO PRN (22:00)
[2020-04-14] MEDS: DOCUSATE SODIUM 100 MG CAP PO SCH (23:16)
[2020-04-15] MEDS: IBUPROFEN 600 MG TAB PO SCH ×2 (04:48→12:00)
[2020-04-15 06:10] LABS: Hematocrit 34.5 % (30.3-42.9); Hemoglobin 11.2 gm/dl (10.1-14.3)
--- NOTE | 2020-04-15 09:41 | Progress Note ---
Assessment and Plan - Patient Problems (1) Status post normal vaginal delivery Current Visit: Yes Status: Acute Plan to address problem: Continue routine PP orders Anticipate D/C home tomorrow F/U at office in 6 weeks for routine PP visit Subjective - Subjective Date of service: 04/15/20 Principal diagnosis: S/P ; PPD#1 Interval history: See admission H & P; OB delivery summary and PP progress notes Patient reports: appetite normal, voiding normally, pain well controlled, flatus, ambulating normally : in NICU Objective - Vital Signs Latest vital signs: Vital Signs Temp Pulse Resp BP BP Pulse Ox 04/15/20 04:37 98.2 F 60 20 114/54 99 04/14/20 23:25 98.0 F 64 20 117/68 99 04/14/20 19:40 98.1 F 67 20 109/58 100 04/14/20 19:21 98.2 F 85 18 119/71 04/14/20 19:12 82 122/70 04/14/20 18:57 76 123/61 04/14/20 18:43 88 123/59 04/14/20 18:27 82 127/77 04/14/20 18:12 85 116/66 04/14/20 17:58 87 108/55 04/14/20 17:42 132/62 04/14/20 17:41 90 135/63 04/14/20 17:33 90 116/56 04/14/20 17:24 103 H 115/58 04/14/20 16:57 94 H 109/60 04/14/20 16:56 106 H 113/65 04/14/20 16:54 104 H 107/57 04/14/20 16:53 111 H 99/72 04/14/20 16:52 108 H 106/68 04/14/20 16:51 98 H 103/61 04/14/20 16:50 100 H 105/60 04/14/20 16:49 100 H 102/59 04/14/20 16:48 80 102/57 04/14/20 16:47 87 104/56 04/14/20 16:46 102/59 04/14/20 16:45 86 101/58 04/14/20 16:44 96 H 101/59 04/14/20 16:43 92 H 100/57 04/14/20 16:42 100 H 98/58 04/14/20 16:41 83 97/52 04/14/20 16:40 98 H 98/55 04/14/20 16:39 85 101/57 04/14/20 16:38 93 H 99/61 04/14/20 16:37 91 H 103/62 04/14/20 16:36 102 H 104/66 04/14/20 16:35 96 H 113/61 04/14/20 16:34 103 H 109/72 04/14/20 16:33 96 H 106/68 04/14/20 16:32 104 H 102/69 04/14/20 16:30 85 97/62 04/14/20 16:29 96 H 99/70 04/14/20 16:28 89 101/59 04/14/20 16:27 85 111/60 04/14/20 16:26 101 H 119/72 04/14/20 16:22 97 H 147/92 04/14/20 16:21 99 H 141/90 04/14/20 16:04 96 H 140/83 04/14/20 15:34 97 H 139/79 04/14/20 15:04 99 H 113/67 04/14/20 13:35 94 H 112/59 04/14/20 13:04 82 98/57 04/14/20 12:34 95 H 103/61 04/14/20 12:04 96 H 81/47 04/14/20 11:54 90 88/51 04/14/20 11:13 104 H 98 04/14/20 11:08 104 H 98 04/14/20 11:03 95 H 99 04/14/20 10:58 96 H 99 04/14/20 10:53 94 H 99 04/14/20 10:48 100 H 98 04/14/20 10:43 101 H 99 04/14/20 10:38 96 H 98 04/14/20 10:33 94 H 98 04/14/20 10:30 99.1 F 04/14/20 10:28 95 H 99 04/14/20 10:23 100 H 98 04/14/20 10:19 54 L 92 04/14/20 10:18 49 L 92 04/14/20 10:16 95 H 108/65 Intake and Output 04/14/20 04/15/20 04/15/20 23:59 07:59 15:59 Intake Total 240 720 Output Total 600 Balance -360 720 Intake: Oral 240 720 Output: Urine 600 Void 600 Other: Total, Intake Amount 240 240 Total, Output Amount 600 # Voids Void 1 3 Estimated Blood Loss 100 - Exam Breasts: Present: normal Cardiovascular: Present: Regular rate Lungs: Present: Normal air movement Abdomen: Present: soft Uterus: Present: firm, fundal height below umbilicus (U-1) Extremities: Present: normal, edema (slight edema in bilat feet) Incision: Present: other (Midline episiotomy, healing as expected) - Labs Labs: Abnormal lab results 04/14/20 Range/Units 09:50 MCH 26 L (28-32) pg
--- NOTE | 2020-04-15 09:43 | Discharge Summary ---
Providers - Providers Date of Admission: 04/14/20 09:26 Date of discharge: 04/16/20 (1500) Attending physician: GAYLE ALARCON MD Primary care physician: GAYLE ALARCON MD Hospitalization Reason for admission: active labor, IUP - Delivery: Episiotomy: midline (healing as expected) Laceration: none Other procedures: none complications: none Discharge diagnosis: delivery baby: male Hospital course: See admission H & P; OB delivery summary and PP progress notes Condition at discharge: Stable Disposition: DC-01 TO HOME OR SELFCARE - Discharge Diagnoses (1) Status post normal vaginal delivery Status: Acute Plan - Provider Discharge Summary Activity: routine, no sex for 6 weeks, no heavy lifting 4 weeks, no strenuous exercise Diet: other (Iron rich diet) Instructions: routine Additional instructions: [] Smoking cessation referral if applicable(refer to patient education folder for contact #) [] Refer to [facility] Booklet Call your doctor immediately for: * Fever > 100.5 * Heavy vaginal bleeding ( >1 pad per hour) * Severe persistent headache * Shortness of breath * Reddened, hot, painful area to leg or breast * Drainage or odor from incision. * Keep incision clean and dry at all times and follow doctor's instructions regarding bathing/showering - Follow up plan Follow up: GAYLE ALARCON MD [Primary Care Provider] - 6 Weeks
[2020-04-15] MEDS ORDERED: MEASLES, MUMPS & RUBELLA 12,500 UNIT/0.5 ML VACCINE SUB-Q ONE (10:19)
[2020-04-15] MEDS: PRENATAL VIT27-FE FUMARATE-FOLIC ACID VIT TAB PO SCH (12:12)
[2020-04-15] MEDS: DOCUSATE SODIUM 100 MG CAP PO SCH (12:12)
--- NOTE | 2020-04-15 14:28 | Post Anesthesia Evaluation ---
- Post Anesthesia Evaluation Patient Participated: Yes Airway Patent: Yes Stable Respiratory Function: Yes Nausea/Vomiting: No Temp > 96.8F: Yes Pain Manageable: Yes Adequeate Hydration: Yes Anesthesia Complications: No Block Receding Appropriately: Yes Patient on Ventilator: No
[2020-04-16] MEDS: DOCUSATE SODIUM 100 MG CAP PO SCH (09:44)
[2020-04-16] MEDS: PRENATAL VIT27-FE FUMARATE-FOLIC ACID VIT TAB PO SCH (09:44)
[2020-04-16] MEDS: IBUPROFEN 600 MG TAB PO SCH (16:28)
[2020-04-16 17:36] VITALS: BP 117/69
== END 2020-04-16 16:30 | disposition home or self-care (01) | DRG 775 ==
LOC: TRG 09:25 → LD 09:26 → TRG 10:25 → OB 19:57
PROVIDERS: ADMIT Obstetrics & Gynecology; ATTEND Obstetrics & Gynecology
PROC: 10E0XZZ Delivery of Products of Conception, External Approach (ICD-10-PCS; principal; 2020-04-14)
PROC: 0W8NXZZ Division of Female Perineum, External Approach (ICD-10-PCS; 2020-04-14)
PROC: 3E0R3BZ Introduction of Anesthetic Agent into Spinal Canal, Percutaneous Approach (ICD-10-PCS; 2020-04-14)
PROC: 00HU33Z Insertion of Infusion Device into Spinal Canal, Percutaneous Approach (ICD-10-PCS; 2020-04-14)
PROC: 10H07YZ Insertion of Other Device into Products of Conception, Via Natural or Artificial Opening (ICD-10-PCS; 2020-04-14)
PROC: 3E0234Z Introduction of Serum, Toxoid and Vaccine into Muscle, Percutaneous Approach (ICD-10-PCS; 2020-04-15)
DX: O60.14X0 Preterm labor third trimester with preterm delivery third trimester, not applicable or unspecified (principal); O76 Abnormality in fetal heart rate and rhythm complicating labor and delivery; O42.013 Preterm premature rupture of membranes, onset of labor within 24 hours of rupture, third trimester; O34.211 Maternal care for low transverse scar from previous cesarean delivery; O69.1XX0 Labor and delivery complicated by cord around neck, with compression, not applicable or unspecified; O99.52 Diseases of the respiratory system complicating childbirth; J45.909 Unspecified asthma, uncomplicated; O99.214 Obesity complicating childbirth; E66.9 Obesity, unspecified; Z3A.35 35 weeks gestation of pregnancy; Z37.0 Single live birth; Z23 Encounter for immunization
CPT/HCPCS: 36415; 76815; 85014; 85018; 85027; 86592; 86706; 86850; 86900; 86901; 88307; G0378; J0290; J2590; J7120

== ENCOUNTER 2021-05-01 22:00 | Emergency (ER) | payer MEDICAID ==
[2021-05-01 23:48] VITALS: BP 113/55
[2021-05-02] MEDS ORDERED: FAMOTIDINE 20 MG TAB PO ONE (01:24)
[2021-05-02] MEDS ORDERED: ALUM-MAG HYDROXIDE-SIMETHICONE 200-200-20MG/5ML ORAL LIQD 30 ML PO ONE (01:24)
[2021-05-02] MEDS ORDERED: LIDOCAINE VISCOUS 2% 15 ML ORAL LIQD PO ONE (01:24)
[2021-05-02] MEDS ORDERED: HYOSCYAMINE SUBL 0.125 MG TAB SL ONE (01:25)
[2021-05-02] MEDS ORDERED: CYCLOBENZAPRINE 10 MG TAB PO ONE (01:32)
--- NOTE | 2021-05-02 01:40 | Emergency Department Report ---
ED General Adult HPI - General Chief complaint: Back Pain/Injury Stated complaint: LOWER BACK PAIN Time Seen by Provider: 05/02/21 00:58 Source: patient Mode of arrival: Ambulatory Limitations: No Limitations - History of Present Illness Initial comments: Patient is a 35-year-old female presents emergency room with complaints of a burning sensation present to the epigastric region which radiates up into the chest into the throat that began around 9 PM tonight. She states that it started a little while after she ate dinner. She states she feels like she needs to belch and feels like "her food does not fully digest." She states that she has had these symptoms in the past. Patient states that she is also had back pain since having an epidural a year ago. She states that she experiences the pain intermittently. She states that her symptoms improve after she takes a muscle relaxer but she does not have anymore. She denies any fall or injury. She denies any fever, nausea, vomiting, diarrhea, shortness of breath. She states her only past medical history is asthma. No allergies to medications. Severity scale (0 -10): 2 - Related Data Home Medications Medication Instructions Recorded Confirmed Last Taken Vit-Fe Fumar-FA [ 1 tab PO QDAY 12/21/16 04/15/20 Unknown Vitamin] Previous Rx's Medication Instructions Recorded Last Taken Type Ibuprofen [Motrin 600 MG tab] 600 mg PO Q8H PRN #30 tablet 12/21/16 1 Day Ago Rx ~12/02/18 600 mg Multivitamin with Iron 1 each PO DAILY #30 tablet 12/21/16 Unknown Rx [Multivitamins with Iron] oxyCODONE /ACETAMINOPHEN [Percocet 1 tab PO Q6HR PRN #30 tablet 12/21/16 Unknown Rx 5/325] Ferrous Sulfate [Feosol 325 MG tab] 325 mg PO BID #60 tablet 01/27/18 Unknown Rx Ibuprofen [Motrin 600 MG tab] 600 mg PO Q6H #30 tablet 01/27/18 Unknown Rx Vit-Fe Fumar-FA [ 1 each PO QDAY #30 tablet 01/27/18 Unknown Rx Vitamin] Ferrous Sulfate [Feosol 325 MG tab] 325 mg PO BID #60 tablet 12/03/18 Unknown Rx Ibuprofen [Motrin 600 MG tab] 600 mg PO Q6H #30 tablet 12/03/18 Unknown Rx Vit-Fe Fumar-FA [ 1 each PO QDAY #30 tablet 12/03/18 Unknown Rx Vitamin] Albuterol Sulfate [Proair 90 mcg IH Q4HR PRN #2 aer.pow.ba 04/16/19 Unknown Rx Respiclick] Famotidine [Pepcid] 20 mg PO BID #10 tablet 04/16/19 Unknown Rx predniSONE [Deltasone] 40 mg PO QDAY #8 tab 04/16/19 Unknown Rx Prednisone [predniSONE 10 mg 10 mg PO .TAPER #1 tab.ds.pk 07/21/19 Unknown Rx (6-Day Pack, 21 Tabs)] Famotidine [Pepcid] 40 mg PO QHS #30 tablet 05/02/21 Unknown Rx Sucralfate [Carafate] 1 gm PO ACHS 7 Days #21 tablet 05/02/21 Unknown Rx methOCARBAMOL [Robaxin TAB] 500 mg PO BID PRN #14 tab 05/02/21 Unknown Rx Allergies Allergy/AdvReac Type Severity Reaction Status Date / Time No Known Allergies Allergy Verified 01/18/18 11:11 ED Review of Systems ROS: Stated complaint: LOWER BACK PAIN Other details as noted in HPI Comment: All other systems reviewed and negative ED Past Medical Hx - Past Medical History Previous Medical History?: Yes Hx Hypertension: No Hx Congestive Heart Failure: No Hx Diabetes: No Hx Deep Vein Thrombosis: No Hx Renal Disease: No Hx Sickle Cell Disease: No Hx Seizures: No Hx Asthma: Yes Hx COPD: No Hx HIV: No - Surgical History Past Surgical History?: No - Social History Smoking Status: Never Smoker - Medications Home Medications: Home Medications Medication Instructions Recorded Confirmed Last Taken Type Ibuprofen [Motrin 600 MG tab] 600 mg PO Q8H PRN #30 tablet 12/21/16 04/15/20 1 Day Ago Rx ~12/02/18 600 mg Multivitamin with Iron 1 each PO DAILY #30 tablet 12/21/16 04/15/20 Unknown Rx [Multivitamins with Iron] Vit-Fe Fumar-FA [ 1 tab PO QDAY 12/21/16 04/15/20 Unknown History Vitamin] oxyCODONE /ACETAMINOPHEN [Percocet 1 tab PO Q6HR PRN #30 tablet 12/21/16 04/15/20 Unknown Rx 5/325] Ferrous Sulfate [Feosol 325 MG tab] 325 mg PO BID #60 tablet 01/27/18 04/15/20 Unknown Rx Ibuprofen [Motrin 600 MG tab] 600 mg PO Q6H #30 tablet 01/27/18 04/15/20 Unknown Rx Vit-Fe Fumar-FA [ 1 each PO QDAY #30 tablet 01/27/18 04/15/20 Unknown Rx Vitamin] Ferrous Sulfate [Feosol 325 MG tab] 325 mg PO BID #60 tablet 12/03/18 04/15/20 Unknown Rx Ibuprofen [Motrin 600 MG tab] 600 mg PO Q6H #30 tablet 12/03/18 04/15/20 Unknown Rx Vit-Fe Fumar-FA [ 1 each PO QDAY #30 tablet 12/03/18 04/15/20 Unknown Rx Vitamin] Albuterol Sulfate [Proair 90 mcg IH Q4HR PRN #2 aer.pow.ba 04/16/19 04/15/20 Unknown Rx Respiclick] Famotidine [Pepcid] 20 mg PO BID #10 tablet 04/16/19 04/15/20 Unknown Rx predniSONE [Deltasone] 40 mg PO QDAY #8 tab 04/16/19 04/15/20 Unknown Rx Prednisone [predniSONE 10 mg 10 mg PO .TAPER #1 tab.ds.pk 07/21/19 04/15/20 Unknown Rx (6-Day Pack, 21 Tabs)] Famotidine [Pepcid] 40 mg PO QHS #30 tablet 05/02/21 Unknown Rx Sucralfate [Carafate] 1 gm PO ACHS 7 Days #21 tablet 05/02/21 Unknown Rx methOCARBAMOL [Robaxin TAB] 500 mg PO BID PRN #14 tab 05/02/21 Unknown Rx ED Physical Exam - General Limitations: No Limitations General appearance: alert, in no apparent distress - Head Head exam: Present: atraumatic, normocephalic - Eye Eye exam: Present: normal appearance - ENT ENT exam: Present: mucous membranes moist - Neck Neck exam: Present: normal inspection, full ROM. Absent: tenderness, meningismus - Respiratory Respiratory exam: Present: normal lung sounds bilaterally. Absent: respiratory distress, wheezes, rales, rhonchi, stridor, chest wall tenderness, accessory muscle use, decreased breath sounds, prolonged expiratory - Cardiovascular Cardiovascular Exam: Present: regular rate, normal rhythm, normal heart sounds. Absent: systolic murmur, diastolic murmur, rubs, gallop - GI/Abdominal GI/Abdominal exam: Present: soft, normal bowel sounds. Absent: distended, tenderness, guarding, rebound, rigid - Back Exam Back exam: Present: normal inspection, full ROM, paraspinal tenderness (mild right sided paraspinal ttp, no midline C-spine, T-spine or L-spine ttp, no step offs, no deformities, no edema, no erythema). Absent: vertebral tenderness - Neurological Exam Neurological exam: Present: alert, oriented X3, CN II-XII intact, normal gait. Absent: motor sensory deficit - Psychiatric Psychiatric exam: Present: normal affect, normal mood - Skin Skin exam: Present: warm, dry, intact ED Course Vital Signs 05/01/21 23:46 Temperature 98.1 F Pulse Rate 57 L Respiratory 16 Rate Blood Pressure 113/55 [Right] O2 Sat by Pulse 100 Oximetry ED Medical Decision Making - Medical Decision Making Patient is a 35-year-old female presents emergency room with complaints of a burning sensation present to the epigastric region which radiates up into the chest into the throat that began around 9 PM tonight. She states that it started a little while after she ate dinner. She states she feels like she needs to belch and feels like "her food does not fully digest." She states that she has had these symptoms in the past. Patient states that she is also had back pain since having an epidural a year ago. She states that she experiences the pain intermittently. She states that her symptoms improve after she takes a muscle relaxer but she does not have anymore. She denies any fall or injury. She denies any fever, nausea, vomiting, diarrhea, shortness of breath. She states her only past medical history is asthma. No allergies to medications. Vitals are stable. on exam: Right-sided lumbar paraspinal tenderness palpation, no midline C-spine, T-spine, L-spine tender palpation, no step-offs, no deformities, no focal neuro deficits, ambulatory without difficulty. Patient given medications while in the emergency department with resolution of her symptoms, patient is feeling much better and ready to go home. Symptoms appear most consistent with GERD and patient has neck back pain. She has no red flag warning signs of back pain, no trauma, no unexplained weight loss, no fever, no IV drug use, no steroid use, no history of cancer, no neuro deficits, age is not greater than 50. Patient given prescription for medications. Advised patient Please take medication as prescribed. Do not drive or operate machinery while taking muscle relaxer Robaxin. Please avoid spicy food, tomato-based food, barbecue base food, eating and laying flat, eating large meals. Follow-up with your primary care doctor. Return to emergency room for new or worsening symptoms. Critical care attestation.: If time is entered above; I have spent that time in minutes in the direct care of this critically ill patient, excluding procedure time. ED Disposition Clinical Impression: GERD (gastroesophageal reflux disease) Qualifiers: Esophagitis presence: without esophagitis Qualified Code(s): K21.9 - Gastro- esophageal reflux disease without esophagitis Chronic back pain Qualifiers: Back pain location: low back pain Back pain laterality: right Sciatica presence: without sciatica Qualified Code(s): M54.5 - Low back pain Disposition: TO HOME OR SELFCARE Is pt being admited?: No Does the pt Need Aspirin: No Condition: Stable Instructions: Gastroesophageal Reflux Disease, Adult, [id number], Chronic Back Pain Additional Instructions: Please take medication as prescribed. Do not drive or operate machinery while taking muscle relaxer Robaxin. Please avoid spicy food, tomato-based food, barbecue base food, eating and laying flat, eating large meals. Follow-up with your primary care doctor. Return to emergency room for new or worsening symptoms. Prescriptions: Famotidine [Pepcid] 40 mg PO QHS #30 tablet Sucralfate [Carafate] 1 gm PO ACHS 7 Days #21 tablet methOCARBAMOL [Robaxin TAB] 500 mg PO BID PRN #14 tab PRN Reason: muscle spasm/pain Referrals: SHANNON JOHNSON MD [Staff Physician] - 3-5 Days ANAM POMPA MD [Staff Physician] - 3-5 Days [facility] [Provider Group] - 3-5 Days Time of Disposition: 01:40 Print Language: LITHUANIAN
== END 2021-05-02 02:50 | disposition home or self-care (01) ==
LOC: ED 22:00
DX: K21.9 Gastro-esophageal reflux disease without esophagitis (principal); M54.5 Low back pain; G89.29 Other chronic pain; J45.909 Unspecified asthma, uncomplicated; Z79.1 Long term (current) use of non-steroidal anti-inflammatories (NSAID); Z79.899 Other long term (current) drug therapy
CPT/HCPCS: 99282

== ENCOUNTER 2021-08-19 17:57 | Emergency (ER) | payer MEDICAID ==
[2021-08-19] MEDS ORDERED: ACETAMINOPHEN 500 MG TAB PO ONE (19:56)
[2021-08-19] MEDS ORDERED: FAMOTIDINE 20 MG TAB PO ONE (19:57)
[2021-08-19 20:40] LABS: Basophils % (Auto) 0.3 % (0.0-1.8); Eosinophils # (Auto) 0.2 K/mm3 (0.0-0.4); Eosinophils % (Auto) 1.4 % (0.0-4.3); Hematocrit 32.9 % (30.3-42.9); Hemoglobin 10.9 gm/dl (10.1-14.3); Lymphocytes # (Auto) 1.3 K/mm3 (1.2-5.4); Lymphocytes % (Auto) 10.2 % (13.4-35.0); Mean Corpuscular HGB Conc 33 % (30-34); Mean Corpuscular Volume 78 fl (79-97); Monocytes # (Auto) 0.6 K/mm3 (0.0-0.8); Monocytes % (Auto) 5.1 % (0.0-7.3); Platelet Count 172 K/mm3 (140-440); Red Blood Count 4.23 M/mm3 (3.65-5.03); Red Cell Distribution Width 16.1 % (13.2-15.2)
[2021-08-19 20:48] LABS: Alanine Aminotransferase 11 units/L (7-56); Albumin 3.8 g/dL (3.9-5); Blood Urea Nitrogen 13 mg/dL (7-17); Calcium 9.5 mg/dL (8.4-10.2); Hemolysis Index 0
[2021-08-19 20:53] LABS: BUN/Creatinine Ratio 26
--- NOTE | 2021-08-19 21:19 | Emergency Department Report ---
ED Abdominal Pain HPI - General Chief Complaint: Abdominal Pain Stated Complaint: AB PAIN Source: patient Mode of arrival: Ambulatory Limitations: No Limitations - History of Present Illness Initial Comments: Patient is a A1 36-year-old -Finnish female with no past medical history and who is approximately 16 weeks gestation presents to the ED with complaint of acute onset persistent diffuse abdominal pain that radiates to the periumbilical area with a burning sensation for the last 3 hours. Patient also complains of vaginal spotting 2 hours prior to arrival in the ED. Patient denies fever, chills, nausea, vomiting, dysuria, urinary frequency and urgency, diarrhea, chest pain or shortness of breath, sore throat, headache, dizziness, syncope or vaginal discharge. MD Complaint: abdominal pain, other (vaginal bleeding) -: Sudden, days(s) (2) Location: periumbilical, epigastric Radiation: none Migration to: periumbilical, epigastric Severity: severe Severity scale (0 -10): 10 Quality: cramping, sharp Consistency: constant Improves With: nothing Worsens With: nothing Context: other (16 weeks gestation) Associated Symptoms: denies other symptoms, nausea, other (vaginal bleeding). denies: diarrhea, fever, chills, dysuria, hematemesis, hematochezia, melena, anorexia, syncope - Related Data Home Medications Medication Instructions Recorded Confirmed Last Taken Vit-Fe Fumar-FA [ 1 tab PO QDAY 12/21/16 04/15/20 Unknown Vitamin] Previous Rx's Medication Instructions Recorded Last Taken Type Ibuprofen [Motrin 600 MG tab] 600 mg PO Q8H PRN #30 tablet 12/21/16 1 Day Ago Rx ~12/02/18 600 mg Multivitamin with Iron 1 each PO DAILY #30 tablet 12/21/16 Unknown Rx [Multivitamins with Iron] oxyCODONE /ACETAMINOPHEN [Percocet 1 tab PO Q6HR PRN #30 tablet 12/21/16 Unknown Rx 5/325] Ferrous Sulfate [Feosol 325 MG tab] 325 mg PO BID #60 tablet 01/27/18 Unknown Rx Ibuprofen [Motrin 600 MG tab] 600 mg PO Q6H #30 tablet 01/27/18 Unknown Rx Vit-Fe Fumar-FA [ 1 each PO QDAY #30 tablet 01/27/18 Unknown Rx Vitamin] Ferrous Sulfate [Feosol 325 MG tab] 325 mg PO BID #60 tablet 12/03/18 Unknown Rx Ibuprofen [Motrin 600 MG tab] 600 mg PO Q6H #30 tablet 12/03/18 Unknown Rx Vit-Fe Fumar-FA [ 1 each PO QDAY #30 tablet 12/03/18 Unknown Rx Vitamin] Albuterol Sulfate [Proair 90 mcg IH Q4HR PRN #2 aer.pow.ba 04/16/19 Unknown Rx Respiclick] predniSONE [Deltasone] 40 mg PO QDAY #8 tab 04/16/19 Unknown Rx Prednisone [predniSONE 10 mg 10 mg PO .TAPER #1 tab.ds.pk 07/21/19 Unknown Rx (6-Day Pack, 21 Tabs)] Famotidine [Pepcid] 40 mg PO QHS #30 tablet 05/02/21 Unknown Rx Sucralfate [Carafate] 1 gm PO ACHS 7 Days #21 tablet 05/02/21 Unknown Rx methOCARBAMOL [Robaxin TAB] 500 mg PO BID PRN #14 tab 05/02/21 Unknown Rx Acetaminophen [Tylenol] 500 mg PO Q6HR PRN #30 tablet 08/20/21 Unknown Rx Famotidine [Pepcid] 20 mg PO BID #60 tablet 08/20/21 Unknown Rx cephALEXin [Keflex] 500 mg PO Q8HR #30 cap 08/20/21 Unknown Rx Allergies Allergy/AdvReac Type Severity Reaction Status Date / Time No Known Allergies Allergy Verified 01/18/18 11:11 ED Review of Systems ROS: Stated complaint: AB PAIN Other details as noted in HPI Constitutional: denies: chills, fever Eyes: denies: eye pain, eye discharge, vision change ENT: denies: ear pain, throat pain Respiratory: denies: cough, shortness of breath, wheezing Cardiovascular: denies: chest pain, palpitations Endocrine: no symptoms reported Gastrointestinal: abdominal pain, nausea. denies: diarrhea Genitourinary: abnormal menses (vaginal bleeding). denies: urgency, dysuria, discharge Musculoskeletal: denies: back pain, joint swelling, arthralgia Skin: denies: rash, lesions Neurological: denies: headache, weakness, paresthesias Psychiatric: denies: anxiety, depression Hematological/Lymphatic: denies: easy bleeding, easy bruising ED Past Medical Hx - Past Medical History Previous Medical History?: Yes Hx Hypertension: No Hx Congestive Heart Failure: No Hx Diabetes: No Hx Deep Vein Thrombosis: No Hx Renal Disease: No Hx Sickle Cell Disease: No Hx Seizures: No Hx Asthma: Yes Hx COPD: No Hx HIV: No - Surgical History Past Surgical History?: No - Social History Smoking Status: Never Smoker - Medications Home Medications: Home Medications Medication Instructions Recorded Confirmed Last Taken Type Ibuprofen [Motrin 600 MG tab] 600 mg PO Q8H PRN #30 tablet 12/21/16 04/15/20 1 Day Ago Rx ~12/02/18 600 mg Multivitamin with Iron 1 each PO DAILY #30 tablet 12/21/16 04/15/20 Unknown Rx [Multivitamins with Iron] Vit-Fe Fumar-FA [ 1 tab PO QDAY 12/21/16 04/15/20 Unknown History Vitamin] oxyCODONE /ACETAMINOPHEN [Percocet 1 tab PO Q6HR PRN #30 tablet 12/21/16 04/15/20 Unknown Rx 5/325] Ferrous Sulfate [Feosol 325 MG tab] 325 mg PO BID #60 tablet 01/27/18 04/15/20 Unknown Rx Ibuprofen [Motrin 600 MG tab] 600 mg PO Q6H #30 tablet 01/27/18 04/15/20 Unknown Rx Vit-Fe Fumar-FA [ 1 each PO QDAY #30 tablet 01/27/18 04/15/20 Unknown Rx Vitamin] Ferrous Sulfate [Feosol 325 MG tab] 325 mg PO BID #60 tablet 12/03/18 04/15/20 Unknown Rx Ibuprofen [Motrin 600 MG tab] 600 mg PO Q6H #30 tablet 12/03/18 04/15/20 Unknown Rx Vit-Fe Fumar-FA [ 1 each PO QDAY #30 tablet 12/03/18 04/15/20 Unknown Rx Vitamin] Albuterol Sulfate [Proair 90 mcg IH Q4HR PRN #2 aer.pow.ba 04/16/19 04/15/20 Unknown Rx Respiclick] predniSONE [Deltasone] 40 mg PO QDAY #8 tab 04/16/19 04/15/20 Unknown Rx Prednisone [predniSONE 10 mg 10 mg PO .TAPER #1 tab.ds.pk 07/21/19 04/15/20 Unknown Rx (6-Day Pack, 21 Tabs)] Famotidine [Pepcid] 40 mg PO QHS #30 tablet 05/02/21 Unknown Rx Sucralfate [Carafate] 1 gm PO ACHS 7 Days #21 tablet 05/02/21 Unknown Rx methOCARBAMOL [Robaxin TAB] 500 mg PO BID PRN #14 tab 05/02/21 Unknown Rx Acetaminophen [Tylenol] 500 mg PO Q6HR PRN #30 tablet 08/20/21 Unknown Rx Famotidine [Pepcid] 20 mg PO BID #60 tablet 08/20/21 Unknown Rx cephALEXin [Keflex] 500 mg PO Q8HR #30 cap 08/20/21 Unknown Rx ED Physical Exam - General Limitations: No Limitations General appearance: alert, in no apparent distress - Head Head exam: Present: atraumatic, normocephalic, normal inspection - Eye Eye exam: Present: normal appearance, PERRL, EOMI Pupils: Present: normal accommodation - ENT ENT exam: Present: normal exam, normal orophraynx, mucous membranes moist, TM's normal bilaterally, normal external ear exam - Neck Neck exam: Present: normal inspection, full ROM - Respiratory Respiratory exam: Present: normal lung sounds bilaterally. Absent: respiratory distress, wheezes, rales, rhonchi, chest wall tenderness, accessory muscle use, prolonged expiratory - Cardiovascular Cardiovascular Exam: Present: regular rate, normal rhythm, normal heart sounds. Absent: systolic murmur, diastolic murmur, rubs, gallop - GI/Abdominal GI/Abdominal exam: Present: soft, tenderness (Palpable diffuse abdominal tenderness, worse in the periumbilical area), normal bowel sounds. Absent: guarding, rebound, hyperactive bowel sounds, hypoactive bowel sounds - Extremities Exam Extremities exam: Present: normal inspection, full ROM, normal capillary refill - Back Exam Back exam: Present: normal inspection, full ROM. Absent: tenderness, CVA t enderness (R), CVA tenderness (L), muscle spasm, paraspinal tenderness - Neurological Exam Neurological exam: Present: alert, oriented X3, CN II-XII intact, normal gait, reflexes normal - Psychiatric Psychiatric exam: Present: normal affect, normal mood - Skin Skin exam: Present: warm, dry, intact, normal color. Absent: rash ED Course Vital Signs 08/19/21 08/19/21 08/19/21 18:11 20:38 23:34 Temperature 98.7 F 98.2 F Pulse Rate 88 74 Respiratory 17 14 14 Rate Blood Pressure 122/66 Blood Pressure 94/52 [Left] O2 Sat by Pulse 100 100 Oximetry ED Medical Decision Making - Lab Data Result diagrams: 08/19/21 20:07 08/19/21 20:07 - Radiology Data Radiology results: report reviewed, image reviewed [facility] [address] [place] [address] Ultrasound Report Signed Patient: FELIPE LATHAM MR#: [id number] : 1985 Acct:[id number] Age/Sex: 36 / F A DM Date: 08/19/21 Loc: ED Attending Dr: Ordering Physician: CAMERON SHARMA Date of Service: 08/19/21 Procedure(s): US OB >= 14 weeks Fetus Accession Number(s): [id number] cc: CAMERON SHARMA ULTRASOUND OBSTETRIC INDICATION / CLINICAL INFORMATION: Abdominal pain, vaginal bleeding. 16 weeks. Clinical Gestational Age (GA): 16.6 TECHNIQUE: Transabdominal. COMPARISON: None available. FINDINGS: There is a single intrauterine . Biparietal Diameter = 3.4 cm = 16 weeks, 4 day(s). Head Circumference = 11.7 cm = 15 weeks, 5 day(s). Abdominal Circumference = 10.4 cm = 16 weeks, 3 day(s). Femur Length = 2.4 cm = 17 weeks, 1 day(s). Average Ultrasound Age (AUA) = 16 weeks, 3 day(s). Heart Rate: 157 beats per minute. Estimated Weight in grams (if calculated): 165 Estimated Weight Growth Percentile (if calculated): Position: cephalic. Cervix: closed. Length in cm (if measured): 2.3 Placenta: maternal left and free of the os. Amniotic Fluid Volume: normal Amniotic Fluid Index (GABY) in cm (if calculated): . Maternal Adnexa: No significant abnormality. IMPRESSION: 1. Single, living intrauterine with estimated sonographic age of 16 weeks, 3 day(s). 2. No significant sonographic abnormality. Signer Name: James Ruiz MD Signed: 08/19/2021 11:27 PM Workstation Name: [id number] Transcribed By: TL Dictated By: James Ruiz MD Electronically Authenticated By: James Ruiz MD Signed Date/Time: 08/19/212326 DD/ 24 TD/TT: Print Cancel - Medical Decision Making This is a A1 36-year-old -Finnish female with no past medical history and who is approximately 16 weeks gestation presents to the ED with complaint of acute onset persistent diffuse abdominal pain that radiates to the periumbilical area with a burning sensation for the last 3 hours. Patient also complains of vaginal spotting 2 hours prior to arrival in the ED. In the ED, patient is alert and oriented x3 and is not in any distress. Lab test results were reviewed and are all nonactionable. Patient was treated for pain with Tylenol. ultrasound showed a single, living intrauterine with estimated sonographic age of 16 weeks, 3 day(s) with the heart rate of 157 bpm. No other significant sonographic abnormality identified on the ultrasound. Patient was therefore discharged home and advised to take Tylenol as needed for pain and follow-up with [employer] physician in 2 to 3 days for reevaluation. Patient was also advised to maintain a complete pelvic rest with no heavy lifting, physical and strenuous activities and have a complete pelvic rest. Patient was advised return to the ED immediately if symptoms get worse. - Differential Diagnosis Threatened miscarriage; GERD; UTI; subchorionic bleed; ovarian cyst Critical care attestation.: If time is entered above; I have spent that time in minutes in the direct care of this critically ill patient, excluding procedure time. ED Disposition Clinical Impression: Abdominal pain during in second trimester, Vaginal bleeding in patient at less than 20 weeks gestation, Acute urinary tract infection GERD (gastroesophageal reflux disease) Qualifiers: Esophagitis presence: esophagitis presence not specified Qualified Code(s): K21.9 - Gastro-esophageal reflux disease without esophagitis Disposition: 01 HOME / SELF CARE / HOMELESS Is pt being admited?: No Does the pt Need Aspirin: No Condition: Stable Instructions: Abdominal Pain During , [id number], Vaginal Bleeding During , Second Trimester, Abdominal Pain (ED), Urinary Tract Infection, Adult, [id number] Additional Instructions: All lab test results were reviewed and are all nonactionable. Pelvic ultrasound showed a single, living intrauterine with estimated sonographic age of 16 weeks, 3 day(s), and with a heart rate of 157 bpm and no other significant sonographic abnormality. Therefore maintain a complete pelvic rest with no physical or strenuous activities, take Tylenol as needed for pain and follow-up with your [employer] physician in 3 to 5 days for reevaluation. Return to the ED immediately if symptoms get worse. Prescriptions: Acetaminophen [Tylenol] 500 mg PO Q6HR PRN #30 tablet PRN Reason: Pain , Severe (7-10) cephALEXin [Keflex] 500 mg PO Q8HR #30 cap Famotidine [Pepcid] 20 mg PO BID #60 tablet Referrals: VANDANA VALENTINE MD [Staff Physician] - 3-5 Days Time of Disposition: 00:05 Print Language: FRENCH
--- NOTE | 2021-08-19 23:32 | Ultrasound Report ---
ULTRASOUND OBSTETRIC INDICATION / CLINICAL INFORMATION: Abdominal pain, vaginal bleeding. 16 weeks. Clinical Gestational Age (GA): 16.6 TECHNIQUE: Transabdominal. COMPARISON: None available. FINDINGS: There is a single intrauterine . Biparietal Diameter = 3.4 cm = 16 weeks, 4 day(s). Head Circumference = 11.7 cm = 15 weeks, 5 day(s). Abdominal Circumference = 10.4 cm = 16 weeks, 3 day(s). Femur Length = 2.4 cm = 17 weeks, 1 day(s). Average Ultrasound Age (AUA) = 16 weeks, 3 day(s). Heart Rate: 157 beats per minute. Estimated Weight in grams (if calculated): 165 Estimated Weight Growth Percentile (if calculated): Position: cephalic. Cervix: closed. Length in cm (if measured): 2.3 Placenta: maternal left and free of the os. Amniotic Fluid Volume: normal Amniotic Fluid Index (GABY) in cm (if calculated): . Maternal Adnexa: No significant abnormality. IMPRESSION: 1. Single, living intrauterine with estimated sonographic age of 16 weeks, 3 day(s). 2. No significant sonographic abnormality. Signer Name: James Ruiz MD Signed: 08/19/2021 11:27 PM Workstation Name: [id number]
[2021-08-20 00:40] LABS: Bilirubin,Urine NEG (Negative); Blood,Urine MOD (Negative); Color,Urine Yellow (Yellow); Mucus,Urine 1+ /HPF; Protein,Urine <15 mg/dL mg/dL (Negative); Urobilinogen,Urine < 2.0 mg/dL (<2.0)
[2021-08-20] MEDS ORDERED: LIDOCAINE-MPF (1%) 10 MG/1 ML VIAL 5 ML INFILTRATI ONE (01:02)
[2021-08-20 02:06] VITALS: BP 132/73
== END 2021-08-20 02:05 | disposition home or self-care (01) ==
LOC: ED 17:57
DX: O20.9 Hemorrhage in early pregnancy, unspecified (principal); O26.892 Other specified pregnancy related conditions, second trimester; O23.42 Unspecified infection of urinary tract in pregnancy, second trimester; O99.519 Diseases of the respiratory system complicating pregnancy, unspecified trimester; R10.84 Generalized abdominal pain; Z3A.16 16 weeks gestation of pregnancy; K21.9 Gastro-esophageal reflux disease without esophagitis; J45.909 Unspecified asthma, uncomplicated
CPT/HCPCS: 36415; 76805; 80053; 81001; 83690; 84703; 85025; 87086; 96372; 99284; J0696

== ENCOUNTER 2022-06-19 18:12 | Emergency (ER) | payer MEDICAID ==
[2022-06-19 20:42] LABS: Basophils % (Auto) 0.9 % (0.0-1.8); Eosinophils # (Auto) 0.2 K/mm3 (0.0-0.4); Eosinophils % (Auto) 3.3 % (0.0-4.3); Hematocrit 36.7 % (30.3-42.9); Hemoglobin 11.7 gm/dl (10.1-14.3); Lymphocytes # (Auto) 1.4 K/mm3 (1.2-5.4); Lymphocytes % (Auto) 25.1 % (13.4-35.0); Mean Corpuscular HGB Conc 32 % (30-34); Mean Corpuscular Volume 78 fl (79-97); Monocytes # (Auto) 0.3 K/mm3 (0.0-0.8); Monocytes % (Auto) 6.2 % (0.0-7.3); Platelet Count 215 K/mm3 (140-440); Red Blood Count 4.72 M/mm3 (3.65-5.03); Red Cell Distribution Width 16.9 % (13.2-15.2)
[2022-06-19 21:33] LABS: Alanine Aminotransferase 14 units/L (7-56); Albumin 4.7 g/dL (3.9-5); Blood Urea Nitrogen 13 mg/dL (7-17); Calcium 9.1 mg/dL (8.4-10.2); Hemolysis Index 6
[2022-06-19 21:41] LABS: BUN/Creatinine Ratio 22
--- NOTE | 2022-06-19 22:09 | Emergency Department Report ---
HPI - General Chief Complaint: OB/Uterine Contractions Time Seen by Provider: 06/19/22 22:04 - HPI HPI: Room 38 The patient is a 36-year-old female present with chief complaint ectopic . The patient is approximately 7 weeks gestational age. The patient admits to light vaginal bleeding for the past week and she had a routine OB appointment today where an ultrasound was performed concerning for a left ectopic . The radiologist attempted to contact the NEUROLOGY SPECIALIST however the office was closed so the patient was subsequently sent to the ED for further management ED Past Medical Hx - Past Medical History Hx Asthma: Yes - Surgical History Additional Surgical History: , D&C - Family History Family history: no significant - Social History Smoking Status: Never Smoker Substance Use Type: None - Medications Home Medications: Home Medications Medication Instructions Recorded Confirmed Last Taken Type Ibuprofen [Motrin 600 MG tab] 600 mg PO Q8H PRN #30 tablet 12/21/16 04/15/20 1 Day Ago Rx ~12/02/18 600 mg Multivitamin with Iron 1 each PO DAILY #30 tablet 12/21/16 04/15/20 Unknown Rx [Multivitamins with Iron] Vit-Fe Fumar-FA [ 1 tab PO QDAY 12/21/16 04/15/20 Unknown History Vitamin] oxyCODONE /ACETAMINOPHEN [Percocet 1 tab PO Q6HR PRN #30 tablet 12/21/16 04/15/20 Unknown Rx 5/325] Ferrous Sulfate [Feosol 325 MG tab] 325 mg PO BID #60 tablet 01/27/18 04/15/20 Unknown Rx Ibuprofen [Motrin 600 MG tab] 600 mg PO Q6H #30 tablet 01/27/18 04/15/20 Unknown Rx Vit-Fe Fumar-FA [ 1 each PO QDAY #30 tablet 01/27/18 04/15/20 Unknown Rx Vitamin] Ferrous Sulfate [Feosol 325 MG tab] 325 mg PO BID #60 tablet 12/03/18 04/15/20 Unknown Rx Ibuprofen [Motrin 600 MG tab] 600 mg PO Q6H #30 tablet 12/03/18 04/15/20 Unknown Rx Vit-Fe Fumar-FA [ 1 each PO QDAY #30 tablet 12/03/18 04/15/20 Unknown Rx Vitamin] Albuterol Sulfate [Proair 90 mcg IH Q4HR PRN #2 aer.[email or web address] 04/16/19 04/15/20 Unknown Rx Respiclick] predniSONE [Deltasone] 40 mg PO QDAY #8 tab 04/16/19 04/15/20 Unknown Rx Prednisone [predniSONE 10 mg 10 mg PO .TAPER #1 tab.ds.pk 07/21/19 04/15/20 Unknown Rx (6-Day Pack, 21 Tabs)] Famotidine [Pepcid] 40 mg PO QHS #30 tablet 05/02/21 Unknown Rx Sucralfate [Carafate] 1 gm PO ACHS 7 Days #21 tablet 05/02/21 Unknown Rx methOCARBAMOL [Robaxin TAB] 500 mg PO BID PRN #14 tab 05/02/21 Unknown Rx Acetaminophen [Tylenol] 500 mg PO Q6HR PRN #30 tablet 08/20/21 Unknown Rx Famotidine [Pepcid] 20 mg PO BID #60 tablet 08/20/21 Unknown Rx cephALEXin [Keflex] 500 mg PO Q8HR #30 cap 08/20/21 Unknown Rx ED Review of Systems ROS: Stated complaint: ECTOPIC PREGANCY Other details as noted in HPI Constitutional: no symptoms reported Eyes: denies: eye pain ENT: denies: throat pain Respiratory: no symptoms reported Cardiovascular: denies: chest pain Endocrine: no symptoms reported Genitourinary: abnormal menses Musculoskeletal: denies: back pain Neurological: denies: headache Physical Exam - Physical Exam Vital Signs: Vital Signs 06/19/22 19:49 Temperature 98.8 F Pulse Rate 69 Respiratory 18 Rate Blood Pressure 119/65 [Right] O2 Sat by Pulse 100 Oximetry Physical Exam: GENERAL: The patient is well-developed well-nourished female lying on stretcher not appearing to be in acute distress. [] HEENT: Normocephalic. Atraumatic. Extraocular motions are intact. Patient has moist mucous membranes. NECK: Supple. Trachea midline CHEST/LUNGS: Clear to auscultation. There is no respiratory distress noted. HEART/CARDIOVASCULAR: Regular. There is no tachycardia. There is no gallop rub or murmur. ABDOMEN: Abdomen is soft, nontender. Patient has normal bowel sounds. There is no abdominal distention. SKIN: There is no rash. There is no edema. There is no diaphoresis. NEURO: The patient is awake, alert, and oriented. The patient is cooperative. The patient has no focal neurologic deficits. The patient has normal speech. GCS 15 MUSCULOSKELETAL: There is no evidence of acute injury. ED Course Vital Signs 06/19/22 19:49 Temperature 98.8 F Pulse Rate 69 Respiratory 18 Rate Blood Pressure 119/65 [Right] O2 Sat by Pulse 100 Oximetry - Consultations Consultation #1: 06/20/22 00:00 NEUROLOGY SPECIALIST paged 06/20/22 00:08 Case discussed with NEUROLOGY SPECIALIST Dr. Renteria-recommends methotrexate 104 mg IM x1 and have patient follow-up at [facility] in 4 days for repeat hCG draw ED Medical Decision Making - Lab Data Result diagrams: 06/19/22 20:11 06/19/22 20:11 - Differential Diagnosis Ectopic Critical care attestation.: If time is entered above; I have spent that time in minutes in the direct care of this critically ill patient, excluding procedure time. ED Disposition Clinical Impression: Ectopic of left ovary Disposition: 01 HOME / SELF CARE / HOMELESS Is pt being admited?: No Does the pt Need Aspirin: No Condition: Stable Instructions: Methotrexate Treatment for an Ectopic , Care After, Ectopic Additional Instructions: Return to the emergency department should you develop worsening symptoms, inability to tolerate food or liquids, high fever or any other concerns Referrals: [facility] [Provider Group] - 06/23/22 (Follow-up with your NEUROLOGY SPECIALIST in 4 days for reevaluation) Time of Disposition: 00:10
--- NOTE | 2022-06-19 23:29 | Ultrasound Report ---
ULTRASOUND OBSTETRIC REASON FOR EXAM: tubal preg TECHNIQUE: Transabdominal and transvaginal ultrasound was performed to evaluate a first trimester pre gnancy. COMPARISON: None available. FINDINGS: Uterus measures 11 x 6 x 6.7 cm. Endometrial complex measures 8 mm. There is complex fluid in the end ometrial cavity without discrete gestational sac. Left ovary measures 4.1 cm. There is a 1.8 x 1.9 x 1.9 cm cystic structure in the left adnexa with perez spected yolk sac and questionable pole, concerning for left adnexal ectopic. Right ovary measures 3.3 cm. No significant cyst or solid mass. Normal Doppler flow. No significant free fluid. IMPRESSION: Findings concerning for left adnexal ectopic . No evidence of rupture. CRITICAL RESULT: Time of Discovery (MID LEVEL GAME DESIGNER/CDT): 06/19/2022 at 10:20 PM Time of Communication (MID LEVEL GAME DESIGNER/CDT): 10:25 PM Licensed Practitioner Receiving Report: Dr. Barillas Read-Back Performed: Yes. Signer Name: Renato Kaur MD Signed: 06/19/2022 11:25 PM Workstation Name: [id number]
--- NOTE | 2022-06-19 23:29 | Ultrasound Report ---
ULTRASOUND OBSTETRIC REASON FOR EXAM: tubal preg TECHNIQUE: Transabdominal and transvaginal ultrasound was performed to evaluate a first trimester pre gnancy. COMPARISON: None available. FINDINGS: Uterus measures 11 x 6 x 6.7 cm. Endometrial complex measures 8 mm. There is complex fluid in the end ometrial cavity without discrete gestational sac. Left ovary measures 4.1 cm. There is a 1.8 x 1.9 x 1.9 cm cystic structure in the left adnexa with perez spected yolk sac and questionable pole, concerning for left adnexal ectopic. Right ovary measures 3.3 cm. No significant cyst or solid mass. Normal Doppler flow. No significant free fluid. IMPRESSION: Findings concerning for left adnexal ectopic . No evidence of rupture. CRITICAL RESULT: Time of Discovery (TURKEY CLEANER/CDT): 06/19/2022 at 10:20 PM Time of Communication (TURKEY CLEANER/CDT): 10:25 PM Licensed Practitioner Receiving Report: Dr. Barillas Read-Back Performed: Yes. Signer Name: Renato Kaur MD Signed: 06/19/2022 11:25 PM Workstation Name: [id number]
[2022-06-20 01:21] VITALS: BP 108/54
== END 2022-06-20 01:22 | disposition home or self-care (01) ==
LOC: ED 18:12
DX: O00.202 Left ovarian pregnancy without intrauterine pregnancy (principal); J45.909 Unspecified asthma, uncomplicated
CPT/HCPCS: 36415; 76801; 76817; 80053; 84702; 85025; 86850; 86900; 86901; 96372; 99284; J9260